=== PATIENT | male | born 1965 | race Caucasian/White ===

== ENCOUNTER 2019-10-03 11:59 | Observation (INO) | payer MEDICARE, MEDICAID, SELFPAY ==
[2019-10-03 12:01] VITALS: BP 124/86; PULSE 94; RESP 16; TEMP 36.6; O2SAT 100; BMI 27.2
--- NOTE | 2019-10-03 12:01 | ED_ITS ---
Entered by Patricia Calixto, acting as scribe for Panda Bundy DO HPI - Altered Mental Status General: Chief Complaint: Altered Mental Status Stated Complaint: AMS Time Seen by Provider: 10/03/19 12:00 Source: family and EMS Mode of arrival: EMS Limitations: altered mental status History of Present Illness: HPI narrative: 54 yo male presents with altered mental status and involuntary mouth movement. spouse denied medication change. per spouse this started 2 weeks ago. MD complaint: altered mental status, confusion, decreased responsiveness and weakness Onset (ago): week(s) (2 weeks) Timing confirmed by: spouse Consistency of symptoms: Getting Worse Context: other (antibotics ) Associated symptoms: Reports no associated symptoms Review of Systems General: Reports: ROS unobtainable due to medical condition and ROS unobtainable due to mental status PFS ED PFSH: Social History Smoking and tobacco status: never smoked Physical Exam Narrative: EXAM NARRATIVE: pt has facial involuntary movement Const: ORIENTATION/CONSCIOUSNESS: Yes oriented to person Neuro: COMMON NORMALS: moves all extremities SENSORIUM/ORIENTATION: Yes oriented to person Course Vital Signs: Vital signs: Vital Signs Temperature 97.8 F 10/03/19 12:01 Pulse Rate 70 10/03/19 14:02 Respiratory Rate 16 10/03/19 14:02 Blood Pressure 119/81 10/03/19 14:02 Pulse Oximetry 98 10/03/19 14:02 MDM - Altered Mental Status Lab Data: Labs: Lab Results 10/03/19 10/03/19 10/03/19 Range/Units 04:51 12:00 12:00 WBC 7.8 (4.0-10.0) 10^3/ uL RBC 4.81 (4.1-5.3) 10^6/u L Hgb 13.6 (11.7-16.6) g/dL Hct 39.7 L (42.0-52.0) % MCV 82.5 (80-94) fL MCH 28.3 (28.0-34.0) pg MCHC 34.3 (30.0-36.0) g/dL RDW 13.9 (12.1-15.1) % Plt Count 379 (130-400) 10^3/c mm MPV 12.6 H (7.4-10.4) fL Neut % (Auto) 65.7 % Lymph % (Auto) 26.1 % [place] % (Auto) 6.4 % Eos % (Auto) 1.0 % Baso % (Auto) 0.4 % Neut # (Auto) 5.1 (1.8-7.7) 10^3/u L Lymph # (Auto) 2.0 (0.8-4.8) 10^3/u L [place] # (Auto) 0.5 (0.2-0.9) 10^3/u L Eos # (Auto) 0.1 (0.0-0.8) 10^3/u L Baso # (Auto) 0.0 (0.0-0.1) 10^3/u L Nucleated RBC % (a uto) 0 % Nucleated RBCs # 0.0 /100WBC Specimen Type Sample Site ABG pH (7.35-7.45) ABG pO2 (80.0-100.0) mmH g ABG HCO3 (22-26) mmol/L ABG Base Excess (-2.0-2.0) mmol/ L Josh Test Hematocrit (42-52) % O2 Delivery Device FiO2 % An/Sqq 89(V)15 Sonar System Journeyman ID Sodium 130 L (136-145) mmol/L Potassium 4.8 (3.5-5.1) mmol/L Chloride 95 L (98-107) mmol/L Carbon Dioxide 16 L (22-29) mmol/L Anion Gap 23.8 H (5-19) BUN 14 (6-20) mg/dL Creatinine 1.2 (0.7-1.2) mg/dL GFR Calculation 63.6 L (90-130) mL/min Glucose 79 (65-115) mg/dL Lactate (0.5-2.2) mmol/L Calcium 10.0 (8.5-10.5) mg/dL Total Bilirubin 0.3 (0.15-1.2) mg/dL AST 18 (0-40) U/L ALT 16 (0-41) U/L Alkaline Phosphata se 89 (40-130) IU/L Ammonia (16-60) umol/L NT-Pro-B Natriuret Pep 274 H (0-125) pg/mL Total Protein 7.0 (6.6-8.7) g/dL Albumin 4.1 (3.5-5.2) g/dL Globulin 2.9 (1.3-4.6) g/dL Lipase 33 (13-60) U/L TSH 1.28 (0.27-4.20) uIU/ mL Salicylates < 0.3 L (3-10) mg/dL Acetaminophen < 5.0 L (10-30) ug/mL Ethyl Alcohol < 10 (0-10) mg/dL Influenza Type A A g Negative (Negative) POC Influenza B Ag Negative (Negative) 10/03/19 10/03/19 10/03/19 Range/Units 12:24 12:43 12:43 WBC (4.0-10.0) 10^3/ uL RBC (4.1-5.3) 10^6/u L Hgb (11.7-16.6) g/dL Hct (42.0-52.0) % MCV (80-94) fL MCH (28.0-34.0) pg MCHC (30.0-36.0) g/dL RDW (12.1-15.1) % Plt Count (130-400) 10^3/c mm MPV (7.4-10.4) fL Neut % (Auto) % Lymph % (Auto) % [place]. [place] % (Auto) % Eos % (Auto) % Baso % (Auto) % Neut # (Auto) (1.8-7.7) 10^3/u L Lymph # (Auto) (0.8-4.8) 10^3/u L [place] # (Auto) (0.2-0.9) 10^3/u L Eos # (Auto) (0.0-0.8) 10^3/u L Baso # (Auto) (0.0-0.1) 10^3/u L Nucleated RBC % (a uto) % Nucleated RBCs # /100WBC Specimen Type Arterial Sample Site Radial, right ABG pH 7.55 H (7.35-7.45) ABG pO2 112.0 H (80.0-100.0) mmH g ABG HCO3 13.2 L (22-26) mmol/L ABG Base Excess -5.9 L (-2.0-2.0) mmol/ L Josh Test Pos Hematocrit 43.7 (42-52) % O2 Delivery Device Room air FiO2 21.0 % An/Sqq 89(V)15 Sonar System Journeyman ID monro Sodium (136-145) mmol/L Potassium (3.5-5.1) mmol/L Chloride (98-107) mmol/L Carbon Dioxide (22-29) mmol/L Anion Gap (5-19) BUN (6-20) mg/dL Creatinine (0.7-1.2) mg/dL GFR Calculation (90-130) mL/min Glucose (65-115) mg/dL Lactate 1.7 (0.5-2.2) mmol/L Calcium (8.5-10.5) mg/dL Total Bilirubin (0.15-1.2) mg/dL AST (0-40) U/L ALT (0-41) U/L Alkaline Phosphata se (40-130) IU/L Ammonia 15 L (16-60) umol/L NT-Pro-B Natriuret Pep (0-125) pg/mL Total Protein (6.6-8.7) g/dL Albumin (3.5-5.2) g/dL Globulin (1.3-4.6) g/dL Lipase (13-60) U/L TSH (0.27-4.20) uIU/ mL Salicylates (3-10) mg/dL Acetaminophen (10-30) ug/mL Ethyl Alcohol (0-10) mg/dL Influenza Type A A g (Negative) POC Influenza B Ag (Negative) Discharge Plan Discharge Patient Disposition: Admitted As Inpatient Clinical Impression: Delirium due to general medical condition, Metabolic acidosis, Tardive dyskinesia Altered mental status Qualifiers: Altered mental status type: disorientation Qualified Code(s): R41.0 - Disorientation, unspecified Condition: Fair Referrals: Rashawn Chisholm [Family Provider] - Coding Level of Care Code ED Director Non Profit for g Fwd Exam Expanded Problem Focused The documentation recorded by the Durga delacruz Bridget Annette, accurately reflects the service I personally performed and the decisions made by , Panda Bundy DO Oct 03, 2019 11:59
--- NOTE | 2019-10-03 12:16 | XR_ITS ---
WS: [id number] Portable AP upright chest, 10/03/2019 Clinical Data: dyspnea Comparison: None. Findings: No nodules, masses or effusions are seen. The heart is normal. The pulmonary vascularity is not increased. No pneumonia or pneumothorax is seen. Monitor leads on the chest wall. There is a sma ll scar at the left cardiophrenic angle. XR/XR chest 1V portable [id number] Impression: Negative chest.
--- NOTE | 2019-10-03 12:16 | CT_ITS ---
WS: [id number] CT scan of the head, 10/03/2019 Clinical Data: ams Comparison: None. DLP: 724.[address] scans at [facility] use at least one of these dose optimization techniques: automat ed exposure control; mA and/or kV adjustment per patient size (includes targeted exams where dose is matched to clinical indication); or iterative reconstruction. Findings: The ventricular system is minimally dilated without shift. No recent infarct or hemorrhage is seen. T here are no abnormal intracerebral masses. The cerebellum and brainstem are not remarkable. Bony windows of the skull and skull base show no fractures or erosions. The mastoid air cells, analysis intern al auditory canals, sella turcica, intraorbital contents, and paranasal sinuses are unremarkable. CT/CT head wo con* [id number] Impression: Mild cerebral atrophy.
[2019-10-03 12:36] LABS: ABG PH Result 7.55 (7.35-7.45); Arterial Blood Gas Hematocrit 43.7 % (42-52); Base Excess ABG -5.9 mmol/L (-2.0-2.0); Blood Gas Allen Test Pos; Blood Gas Sample Site Radial, right; Blood Gas Sample Type Arterial; HCO3 ABG 13.2 mmol/L (22-26); Oxygen Device ROOM AIR
[2019-10-03 12:42] LABS: Basophils % 0.4 %; Eosinophils # 0.1 10^3/uL (0.0-0.8); Hematocrit 39.7 % (42.0-52.0); Hemoglobin 13.6 g/dL (11.7-16.6); Lymphocytes % 26.1 %; Mean Corpuscular HGB Conc 34.3 g/dL (30.0-36.0); Mean Corpuscular Hemoglobin 28.3 pg (28.0-34.0); Mean Corpuscular Volume 82.5 fL (80-94); Mean Platelet Volume 12.6 fL (7.4-10.4); Monocytes # 0.5 10^3/uL (0.2-0.9); Monocytes % 6.4 %; Neutrophils # 5.1 10^3/uL (1.8-7.7); Neutrophils % 65.7 %; Nucleated Red Blood Cells % 0 %; Platelet Count 379 10^3/cmm (130-400); Red Blood Count 4.81 10^6/uL (4.1-5.3); Red Cell Distribution Width 13.9 % (12.1-15.1); White Blood Count 7.8 10^3/uL (4.0-10.0)
--- NOTE | 2019-10-03 12:57 | PC.NURSE ---
Glucose Patient request bedside glucose be checked. Checked and is 65. Patient's primary caregiver, Rocco, notified and acknowledged. Unable to scan wristband.
[2019-10-03 13:02] LABS: Acetaminophen < 5.0 ug/mL (10-30); Alanine Aminotransferase 16 U/L (0-41); Albumin Level 4.1 g/dL (3.5-5.2); Alcohol Level < 10 mg/dL (0-10); Alkaline Phosphatase 89 IU/L (40-130); Anion Gap 23.8 (5-19); Aspartate Amino Transferase 18 U/L (0-40); Blood Urea Nitrogen 14 mg/dL (6-20); Carbon Dioxide 16 mmol/L (22-29); Chloride 95 mmol/L (98-107); Creatinine Clr Calc Pharmacy 79.7227; Globulin 2.9 g/dL (1.3-4.6); Glomerular Filtration Rate 63.6 mL/min (90-130); Glucose 79 mg/dL (65-115); Lipase 33 U/L (13-60); NT Pro B Type Natriuretic Pept 274 pg/mL (0-125); Potassium 4.8 mmol/L (3.5-5.1); Salicylate < 0.3 mg/dL (3-10); Sodium 130 mmol/L (136-145); Thyroid Stimulating Hormone 1.28 uIU/mL (0.27-4.20); Total Bilirubin 0.3 mg/dL (0.15-1.2)
[2019-10-03 13:09] LABS: Lactate (Lactic Acid level) 1.7 mmol/L (0.5-2.2)
[2019-10-03 13:10] LABS: Ammonia 15 umol/L (16-60)
[2019-10-03 13:53] LABS: Influenza A by IFA Negative (Negative); Influenza B by IFA Negative (Negative)
[2019-10-03 14:02] VITALS: BP 119/81; PULSE 70; RESP 16; O2SAT 98
--- NOTE | 2019-10-03 15:01 | PC.NURSE ---
Pt with abnormal facial movement and mouth movement. Almost looks like a dystonic reaction
--- NOTE | 2019-10-03 15:40 | ECG_ITS ---
Measurements Intervals [place] Rate: 78 P: 49 ID: [id number] QRS: 52 QRSD: 93 T: 41 QT: 369 QTc: 422 SINUS RHYTHM No previous ECG available for comparison Electronically Signed On 10-03-2019 20:00:00 MIXER HELPER by Abdi Diego M.D. [email or web address]
[2019-10-03 16:55] VITALS: BP 109/51; PULSE 70; RESP 21; O2SAT 99
--- NOTE | 2019-10-03 17:21 | P.HP_ITS ---
Providers/Chief Complaint Chief Complaint: AMS History of Present Illness Kolby Pickett is a 54 year old male with a past medical history of Parkinson's disease/tremor, hypertension, hyperlipidemia, type 2 diabetes mellitus, GERD, depression and anxiety, Who presents to the emergency room due to complaints of a tremor, head bobbing, restlessness, trouble focusing, he looks like he has trouble breathing . Most the history was provided by patient's significant other who was at bedside as patient has trouble focusing on questioning, has trouble with phonation, repeated lipsmacking, throat clearing. Patient's states that for the past 2 weeks patient has had repeat episodes of alterations of his mentation which include repeated head bobbing, restlessness, trouble focusing, he looks like he has trouble breathing, lip smacking, throat clearing. Patient's states that 2 weeks ago he was doing fine, no new medications, is not on any antipsychotic medications, no recent Reglan use, he presented to [facility] a few days ago with similar symptoms, and trouble urinating, he was discharged with Reglan and potassium replacement. Since then his symptoms have not improved, patient has been by himself at home, can function on his own, this morning his picked him up, he was able to walk to the car, get in the car, went to [facility] to get his 's oxygen order renewed, when nurses at [facility] noticed his symptoms they were worried, so they called EMS. Patient's only complaint right now is intermittent dysphagia, trouble expressing himself, has complained of intermittent fevers, has bilateral tremors. at other times patient does not make sense, does not respond to questions appropriately, or takes a long time to answer basic questions with repeat throat clearing and lip smacking. What I observed in the emergency room was tremors of the bilateral upper extremities, rigidity of his upper and lower extremities, mild clonus, pupillary dilation, flushing, repeated tongue smacking, throat clearing, akathsia, pupillary dilation poorly reactive to light, repeated head-bobbing. No slurring of his speech, no upper or lower extremity weakness, follows commands, no facial droop,, has a generalized tremor. Review of Systems Const: Reports: fever; Denies: chills, fatigue or malaise Eyes: Denies: change in vision or blurry vision ENMT: Denies: nasal congestion Card: Denies: chest pain Resp: Denies: shortness of breath, productive cough, non-productive cough or wheezing GI: Denies: abdominal pain, nausea, vomiting, vomiting blood, diarrhea, constipation, blood in stool or black tarry stool : Denies: flank pain, difficulty urinating, painful urination or urinary frequency Musc: Denies: neck pain or back pain Skin/Breast: Denies: rash Neuro: Denies: headache, dizziness or vertigo Psych: Denies: anxiety or depression Endo: Denies: excessive urination or excessive thirst Medications/Allergies Home Medications Medication Instructions Recorded Confirmed Last Taken Type albuterol sulfate [Ventolin HFA] 2 puff INHALATION QID PRN 10/03/19 10/03/19 10/03/19 History amlodipine 2.5 mg PO DAILY 10/03/19 10/03/19 10/03/19 History benztropine 1 mg PO BID 10/03/19 10/03/19 10/03/19 History fluoxetine 20 mg PO DAILY 10/03/19 10/03/19 10/03/19 History losartan 25 mg PO DAILY 10/03/19 10/03/19 10/02/19 History metformin 500 mg PO DAILY 10/03/19 10/03/19 10/03/19 History ondansetron 4 mg PO Q6H PRN 10/03/19 10/03/19 Unknown History pantoprazole 40 mg PO BID 10/03/19 10/03/19 Unknown History potassium chloride 20 meq PO BID 10/03/19 10/03/19 10/03/19 History simvastatin 20 mg PO DAILY 10/03/19 10/03/19 10/02/19 History topiramate 100 mg PO BID 10/03/19 10/03/19 10/03/19 History trazodone 100 mg PO BEDTIME 10/03/19 10/03/19 10/02/19 History Allergies Allergy/AdvReac Type Severity Reaction Status Date / Time No Known Allergies Allergy Unverified 10/03/19 14:22 PFSH Acute PFSH: Medical History (Updated 10/03/19 @ 17:33 by Shady Zarate MD) Anxiety and depression GERD (gastroesophageal reflux disease) Hyperlipidemia Parkinsons disease Family History (Updated 10/03/19 @ 17:33 by Shady Zarate MD) Other Diabetes Social History (Updated 10/03/19 @ 17:34 by Shady Zarate MD) Smoking and tobacco status: never smoked Alcohol intake: never Substance/Drug Use: never Vitals/I&O/Wt Last Vital Signs Temp 97.8 F 10/03/19 12:01 Pulse 70 10/03/19 16:55 Resp 21 H 10/03/19 16:55 BP 109/51 10/03/19 16:55 Pulse Ox 99 10/03/19 16:55 Weight last 48 hrs Weight 86.183 kg Physical Exam Const: COMMON NORMALS: no apparent distress and oriented x3 GENERAL APPEARANCE: cooperative and comfortable HENMT: COMMON NORMALS: normocephalic HEAD & SCALP: normocephalic Eye: COMMON NORMALS: PERRL GENERAL EYE: normal appearance of both eyes PUPIL: Yes dilated, Yes fixed and Yes not reactive (Poorly reactive to light) Neck/C-Spine: COMMON NORMALS: full ROM, no lymphadenopathy, no JVD and thyroid normal THYROID: thyroid normal Lymph: LYMPHATIC: no lymphadenopathy noted Resp: COMMON NORMALS: normal respiratory effort, no retractions, no use of accessory muscles and clear to auscultation bilaterally AUSCULTATION: clear to auscultation bilaterally Cardio: COMMON NORMALS: no JVD, regular rate, regular rhythm, S1 normal heart sound, S2 normal heart sound, no gallops, no clicks and no murmurs RATE: regular rate RHYTHM: regular rhythm HEART SOUNDS: S1 normal and S2 normal GI: COMMON NORMALS: normal to inspection, nondistended, normoactive bowel sounds, soft to palpation, non-tender and no hepatosplenomegaly PALPATION: Yes soft and Yes no hepatosplenomegaly Back/Pelvis: COMMON NORMALS: no CVA tenderness Extremity: COMMON NORMALS: normal to inspection, full ROM and no pedal edema Neuro: COMMON NORMALS: oriented x3, CN's II-XII intact bilaterally, moves all extremities and no focal motor deficits PUPIL EXAM: Dilated: bilateral and Fixed/non-reactive: bilateral OTHER: Neck rigidity, upper and lower extremity rigidity, mild clonus, bilateral upper extremity tremor, lipsmacking, throat c learing, head bobbing, akathsia Psych: COMMON NORMALS: mental status grossly normal, thought process normal and cooperative THOUGHT PROCESS: normal thought process Data : 10/03/19 12:00 10/03/19 12:00 Micro: Microbiology 10/03/19 12:47 Blood Culture - Preliminary Blood SPECIMEN COLLECTED 10/03/19 12:43 Blood Culture - Preliminary Blood SPECIMEN COLLECTED A&P Assessment and plan (1) Serotonin syndrome: -Lipsmacking, throat clearing, head-bobbing, bilateral tremors, rigidity, mild clonus, akathsia, history of recent urinary retention's, slow horizontal eye movements, dilated tremors, dry mucous membranes, flushed skin -Patient is not not on any antipsychotic medications, but at one point was on Latuda back in July 2018, and Abilify back in July 2018 -Patient is on Prozac 20 mg once daily, trazodone 100 mg at bedtime, Topamax 100 mg twice daily benztropine 1 mg p.o. twice daily -Differential includes: -Extrapyramidal symptoms and tardive dyskinesia, but again patient is not on any antipsychotics, no recent Reglan use as per my knowledge -Seizures? He is on Topamax patient is unclear why, gets that through Dr. Friedman's office, will recheck to our office tomorrow morning -Serotonin syndrome, a lot of patient's symptoms fit with serotonin syndrome, however is on low-dose of Prozac 20 mg once daily Plan: -We will try Keppra thousand milligrams IV once to see if he responds, if he does likely seizure, if not then other differentials are likely. Get EEG and prolactin levels. But is on Topamax without 100 twice daily -Possible serotonin syndrome, hold Prozac, hold trazodone, monitor vitals, telemetry monitoring, seizure precautions, aspiration precautions, monitor electrolytes, monitor for hyperthermia, monitor autonomic's, ativan as needed as needed, but is getting Valium 2 mg twice daily as needed -Extraparametal symptoms/tardive dyskinesia? Is already on benztropine 1 mg p.o. twice daily Status: Acute Code(s): G25.79 - Other drug induced movement disorders (2) Anxiety and depression: Hold Prozac Status: Acute Code(s): F41.9 - Anxiety disorder, unspecified; F32.9 - Major depressive disorder, single episode, unspecified (3) Hyperlipidemia: Continue home medications Status: Acute Code(s): E78.5 - Hyperlipidemia, unspecified (4) Hypertension: Continue home medications Status: Acute Code(s): I10 - Essential (primary) hypertension (5) Parkinsons disease: Status: Acute Code(s): G20 - Parkinson's disease (6) GERD (gastroesophageal reflux disease): Status: Acute Code(s): K21.9 - Gastro-esophageal reflux disease without esophagitis (7) Type 2 diabetes mellitus: Low-dose sliding scale Status: Acute Code(s): E11.9 - Type 2 diabetes mellitus without complications Attestations Medical Necessity Statement*: Patient requires hospitalization, outpatient with observation, for possible serotonin syndrome Coding Level of Care Code Acute Type Photography Supervisor for [facility] Diagnoses Serotonin syndrome G25.79 Anxiety and depression F41.9; F32.9 Hyperlipidemia E78.5 Hypertension I10 Parkinsons disease G20 GERD (gastroesophageal reflux disease) K21.9 Type 2 diabetes mellitus E11.9
[2019-10-03 18:07] LABS: Creatine Phosphokinase 83 U/L (39-308); Magnesium 2.2 mg/dL (1.7-2.3); Phosphorus 1.6 mg/dL (2.5-4.5)
[2019-10-03 18:32] LABS: Prolactin 6.24 ng/mL (4.0-15.2)
[2019-10-03 18:46] VITALS: BP 99/57; PULSE 69; RESP 20; O2SAT 97
[2019-10-03 19:06] VITALS: BP 104/61; PULSE 67; RESP 18; TEMP 36.8; O2SAT 99
[2019-10-03] MEDS: benztropine 1 mg Tablet PO (19:50)
[2019-10-03] MEDS: topiramate 100 mg Tablet PO (19:51)
[2019-10-03] MEDS: enoxaparin 40 mg/0.4 mL Syringe SUBCUT (19:51)
[2019-10-03 20:00] VITALS: BP 104/61; PULSE 67; RESP 18; TEMP 36.8; O2SAT 99
[2019-10-03 21:31] LABS: Glucose Point of Care 59 mg/dL (70-110)
[2019-10-03 22:09] LABS: Glucose Point of Care 122 mg/dL (70-110)
[2019-10-04] VITALS (8 sets, daily range): BP systolic 97–127; BP diastolic 58–78; PULSE 63–102; RESP 12–20; TEMP 36.4–36.7; O2SAT 97–99; BMI 27.6
[2019-10-04 02:38] LABS: Glucose Point of Care 158 mg/dL (70-110)
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
--- NOTE | 2019-10-04 04:45 | PC.NURSE ---
2116 10/03/19- patients blood sugar 59. gave patient orange juice and sandwich. rechecked blood sugar, improved to 122.
[2019-10-04 04:47] LABS: Basophils % 0.5 %; Eosinophils # 0.2 10^3/uL (0.0-0.8); Eosinophils % 2.4 %; Hemoglobin 12.6 g/dL (11.7-16.6); Lymphocytes # 2.2 10^3/uL (0.8-4.8); Lymphocytes % 33.1 %; Mean Corpuscular HGB Conc 33.2 g/dL (30.0-36.0); Mean Corpuscular Hemoglobin 29.2 pg (28.0-34.0); Mean Platelet Volume 11.8 fL (7.4-10.4); Monocytes # 0.7 10^3/uL (0.2-0.9); Monocytes % 9.9 %; Neutrophils # 3.5 10^3/uL (1.8-7.7); Neutrophils % 53.6 %; Nucleated Red Blood Cells % 0 %; Platelet Count 315 10^3/cmm (130-400); Red Blood Count 4.32 10^6/uL (4.1-5.3); White Blood Count 6.6 10^3/uL (4.0-10.0)
[2019-10-04 05:15] LABS: Alanine Aminotransferase 13 U/L (0-41); Albumin Level 3.2 g/dL (3.5-5.2); Alkaline Phosphatase 69 IU/L (40-130); Anion Gap 17.2 (5-19); Aspartate Amino Transferase 15 U/L (0-40); Blood Urea Nitrogen 12 mg/dL (6-20); Calcium 9.3 mg/dL (8.5-10.5); Carbon Dioxide 19 mmol/L (22-29); Chloride 103 mmol/L (98-107); Globulin 3.2 g/dL (1.3-4.6); Glomerular Filtration Rate 70.3 mL/min (90-130); Glucose 79 mg/dL (65-115); Magnesium 2.2 mg/dL (1.7-2.3); Phosphorus 3.4 mg/dL (2.5-4.5); Potassium 4.2 mmol/L (3.5-5.1); Sodium 135 mmol/L (136-145); Total Bilirubin 0.3 mg/dL (0.15-1.2); Total Protein 6.4 g/dL (6.6-8.7)
[2019-10-04 06:29] LABS: Glucose Point of Care 73 mg/dL (70-110)
[2019-10-04 06:48] LABS: Glucose Point of Care 73 mg/dL (70-110)
[2019-10-04 07:59] LABS: Glucose Point of Care 141 mg/dL (70-110)
[2019-10-04] MEDS: losartan 50 mg Tablet 25 MG PO (08:28)
[2019-10-04] MEDS: pantoprazole DR 40 mg Tablet PO (08:28)
[2019-10-04] MEDS: benztropine 1 mg Tablet PO (08:28)
[2019-10-04] MEDS: topiramate 100 mg Tablet PO (08:29)
[2019-10-04] MEDS: atorvastatin 40 mg Tablet 20 MG PO (08:29)
[2019-10-04] MEDS: amlodipine 5 mg Tablet 2.5 MG PO (08:29)
[2019-10-04] MEDS: risperiDONE 2 mg Tablet PO (10:46)
[2019-10-04 11:31] LABS: Glucose Point of Care 107 mg/dL (70-110)
--- NOTE | 2019-10-04 11:49 | PM.DCS ---
Discharge Providers Date of Admission: 10/03/19 16:53 Date of Discharge: October 04, 2019 Attending Provider at Admission: Shady Zarate MD Attending Provider at Discharge: Shady Zarate MD Diagnoses at Discharge Discharge Diagnosis (1) Serotonin syndrome: Status: Acute (2) Anxiety and depression: Status: Acute (3) Hyperlipidemia: Status: Acute (4) Hypertension: Status: Acute (5) Parkinsons disease: Status: Acute (6) GERD (gastroesophageal reflux disease): Status: Acute (7) Type 2 diabetes mellitus: Status: Acute Reason for Visit Reason for Visit: Reason For Visit: [facility] Hospital Course Hospital Course: Kolby Pickett is a 54 year old male with a past medical history of Parkinson's disease/tremor, hypertension, hyperlipidemia, type 2 diabetes mellitus, GERD, depression and anxiety, schizophrenia Who presents to the emergency room due to complaints of a tremor, head bobbing, restlessness, trouble focusing, he looks like he has trouble breathing . Most the history was provided by patient's significant other who was at bedside as patient has trouble focusing on questioning, has trouble with phonation, repeated lipsmacking, throat clearing. Patient's only complaint right now is intermittent dysphagia, trouble expressing himself, has complained of intermittent fevers, has bilateral tremors. at other times patient does not make sense, does not respond to questions appropriately, or takes a long time to answer basic questions with repeat throat clearing and lip smacking. What I observed in the emergency room was tremors of the bilateral upper extremities, rigidity of his upper and lower extremities, mild clonus, pupillary dilation, flushing, repeated tongue smacking, throat clearing, akathsia, pupillary dilation poorly reactive to light, repeated head-bobbing. No slurring of his speech, no upper or lower extremity weakness, follows commands, no facial droop,, has a generalized tremor. Patient was given a trial of Keppra thousand milligrams once to see if he if he actually was having seizures, patient symptoms did not seem to improve with Keppra. Patient did not have any significant laboratory abnormalities, no significant vital abnormalities, and was on quite a small dose of paroxetine so I think serotonin syndrome was very unlikely. In the morning I spoke to Dr. Friedman about the case, Dr. Friedman informing that patient has a known history of tardive dyskinesia and schizophrenia, he was on Latuda and Abilify at one point but they were discontinued by [facility] for reasons unknown to me and her, Dr. Friedman informs me that patient has been having baseline tremors, and his symptoms as above are associated with his tardive dyskinesias are baseline for him, but likely patient has been off his antipsychotic medications for his schizophrenia for approximately a year that is likely making his tardive dyskinesia more pronounced. Patient was given a trial of risperidone, 2 mg twice daily, he is discharged with a month supply, was advised to follow-up with [facility] in 1 month, with repeat CBC and CMP in 1 month. Physical Exam Const: COMMON NORMALS: no apparent distress and oriented x3 GENERAL APPEARANCE: cooperative and comfortable HENMT: COMMON NORMALS: normocephalic HEAD & SCALP: normocephalic Neck/C-Spine: COMMON NORMALS: no JVD Resp: COMMON NORMALS: normal respiratory effort, no retractions, no use of accessory muscles and clear to auscultation bilaterally AUSCULTATION: clear to auscultation bilaterally Cardio: COMMON NORMALS: no JVD, regular rate, regular rhythm, S1 normal heart sound, S2 normal heart sound, no gallops, no clicks and no murmurs RATE: regular rate RHYTHM: regular rhythm HEART SOUNDS: S1 normal and S2 normal GI: COMMON NORMALS: normal to inspection, nondistended, normoactive bowel sounds, soft to palpation, non-tender and no hepatosplenomegaly PALPATION: Yes soft and Yes no hepatosplenomegaly Neuro: COMMON NORMALS: oriented x3, CN's II-XII intact bilaterally, moves all extremities and no focal motor deficits OTHER: Neck rigidity, upper and lower extremity rigidity, mild clonus, bilateral upper extremity tremor, lipsmacking, throat clearing, head bobbing, akathsia Psych: COMMON NORMALS: mental status grossly normal, thought process normal and cooperative THOUGHT PROCESS: normal thought process Discharge Data Data Completed and Pending: Completed Studies During Hospitalization Category Date Time Status CT head wo con* [id number] 0450 Urgent Cat Scan 10/03/19 12:16 Completed XR chest 1V tracey ble [id number] Urgent Exams 10/03/19 12:16 Completed Pending at discharge Category Date Time Status EEG electroenceph alogram Routine Exams 10/03/19 19:06 Ordered Arterial Blood Ga s W/O Coox Routine Lab 10/03/19 12:24 Results Blood Culture Sta t Lab 10/03/19 12:47 Results Complete Blood Co unt w/Auto AM LABS Lab 10/05/19 04:00 Ordered Complete Blood Co unt w/Auto AM LABS Lab 10/06/19 04:00 Ordered Comprehensive Met abolic Panel AM LA BS Lab 10/05/19 04:00 Ordered Comprehensive Met abolic Panel AM LA BS Lab 10/06/19 04:00 Ordered Drug Screen, Urin e Stat Lab 10/03/19 13:21 Ordered Magnesium AM LABS Lab 10/05/19 04:00 Ordered Magnesium AM LABS Lab 10/06/19 04:00 Ordered Phosphorus AM LAB S Lab 10/05/19 04:00 Ordered Phosphorus AM LAB S Lab 10/06/19 04:00 Ordered Urinalysis Stat Lab 10/03/19 13:21 Ordered Labs from last 24 hours 10/04/19 10/04/19 10/04/19 11:10 07:38 06:45 WBC RBC Hgb Hct MCV MCH MCHC RDW Plt Count MPV Neut % (Auto) Lymph % (Auto) [place] % (Auto) Eos % (Auto) Baso % (Auto) Neut # (Auto) Lymph # (Auto) [place] # (Auto) Eos # (Auto) Baso # (Auto) Nucleated RBC % (a uto) Nucleated RBCs # Specimen Type Sample Site ABG pH ABG pO2 ABG HCO3 ABG Base Excess Josh Test Hematocrit O2 Delivery Device FiO2 Unit Secy ID Sodium Potassium Chloride Carbon Dioxide Anion Gap BUN Creatinine GFR Calculation Glucose POC Glucose 107 141 73 Lactate Calcium Phosphorus Magnesium Total Bilirubin AST ALT Alkaline Phosphata se Ammonia Creatine Kinase NT-Pro-B Natriuret Pep Total Protein Albumin Globulin Lipase TSH Prolactin Salicylates Acetaminophen Ethyl Alcohol Influenza Type A A g POC Influenza B Ag 10/04/19 10/04/19 10/04/19 06:13 04:27 04:27 WBC 6.6 RBC 4.32 Hgb 12.6 Hct 38.0 L MCV 88.0 D MCH 29.2 MCHC 33.2 RDW 14.0 Plt Count 315 MPV 11.8 H Neut % (Auto) 53.6 Lymph % (Auto) 33.1 [place] % (Auto) 9.9 Eos % (Auto) 2.4 Baso % (Auto) 0.5 Neut # (Auto) 3.5 Lymph # (Auto) 2.2 [place] # (Auto) 0.7 Eos # (Auto) 0.2 Baso # (Auto) 0.0 Nucleated RBC % (a uto) 0 Nucleated RBCs # 0.0 Specimen Type Sample Site ABG pH ABG pO2 ABG HCO3 ABG Base Excess Josh Test Hematocrit O2 Delivery Device FiO2 Unit Secy ID Sodium 135 L Potassium 4.2 Chloride 103 Carbon Dioxide 19 L Anion Gap 17.2 BUN 12 Creatinine 1.1 GFR Calculation 70.3 L Glucose 79 POC Glucose 73 Lactate Calcium 9.3 Phosphorus 3.4 D Magnesium 2.2 Total Bilirubin 0.3 AST 15 ALT 13 Alkaline Phosphata se 69 Ammonia Creatine Kinase NT-Pro-B Natriuret Pep Total Protein 6.4 L Albumin 3.2 L Globulin 3.2 Lipase TSH Prolactin Salicylates Acetaminophen Ethyl Alcohol Influenza Type A A g POC Influenza B Ag 10/04/19 10/03/19 10/03/19 02:26 22:05 21:16 WBC RBC Hgb Hct MCV MCH MCHC RDW Plt Count MPV Neut % (Auto) Lymph % (Auto) [place] % (Auto) Eos % (Auto) Baso % (Auto) Neut # (Auto) Lymph # (Auto) [place] # (Auto) Eos # (Auto) Baso # (Auto) Nucleated RBC % (a uto) Nucleated RBCs # Specimen Type Sample Site ABG pH ABG pO2 ABG HCO3 ABG Base Excess Josh Test Hematocrit O2 Delivery Device FiO2 Unit Secy ID Sodium Potassium Chloride Carbon Dioxide Anion Gap BUN Creatinine GFR Calculation Glucose POC Glucose 158 122 59 Lactate Calcium Phosphorus Magnesium Total Bilirubin AST ALT Alkaline Phosphata se Ammonia Creatine Kinase NT-Pro-B Natriuret Pep Total Protein Albumin Globulin Lipase TSH Prolactin Salicylates Acetaminophen Ethyl Alcohol Influenza Type A A g POC Influenza B Ag 10/03/19 10/03/19 10/03/19 17:34 12:43 12:43 WBC RBC Hgb Hct MCV MCH MCHC RDW Plt Count MPV Neut % (Auto) Lymph % (Auto) [place] % (Auto) Eos % (Auto) Baso % (Auto) Neut # (Auto) Lymph # (Auto) [place] # (Auto) Eos # (Auto) Baso # (Auto) Nucleated RBC % (a uto) Nucleated RBCs # Specimen Type Sample Site ABG pH ABG pO2 ABG HCO3 ABG Base Excess Josh Test Hematocrit O2 Delivery Device FiO2 Unit Secy ID Sodium Potassium Chloride Carbon Dioxide Anion Gap BUN Creatinine GFR Calculation Glucose POC Glucose Lactate 1.7 Calcium Phosphorus 1.6 L Magnesium 2.2 Total Bilirubin AST ALT Alkaline Phosphata se Ammonia 15 L Creatine Kinase 83 NT-Pro-B Natriuret Pep Total Protein Albumin Globulin Lipase TSH Prolactin 6.24 Salicylates Acetaminophen Ethyl Alcohol Influenza Type A A g POC Influenza B Ag 10/03/19 10/03/19 10/03/19 12:24 12:00 12:00 WBC 7.8 RBC 4.81 Hgb 13.6 Hct 39.7 L MCV 82.5 MCH 28.3 MCHC 34.3 RDW 13.9 Plt Count 379 MPV 12.6 H Neut % (Auto) 65.7 Lymph % (Auto) 26.1 [place] % (Auto) 6.4 Eos % (Auto) 1.0 Baso % (Auto) 0.4 Neut # (Auto) 5.1 Lymph # (Auto) 2.0 [place] # (Auto) 0.5 Eos # (Auto) 0.1 Baso # (Auto) 0.0 Nucleated RBC % (a uto) 0 Nucleated RBCs # 0.0 Specimen Type Arterial Sample Site Radial, right ABG pH 7.55 H ABG pO2 112.0 H ABG HCO3 13.2 L ABG Base Excess -5.9 L Josh Test Pos Hematocrit 43.7 O2 Delivery Device Room air FiO2 21.0 Unit Secy ID monro Sodium 130 L Potassium 4.8 Chloride 95 L Carbon Dioxide 16 L Anion Gap 23.8 H BUN 14 Creatinine 1.2 GFR Calculation 63.6 L Glucose 79 POC Glucose Lactate Calcium 10.0 Phosphorus Magnesium Total Bilirubin 0.3 AST 18 ALT 16 Alkaline Phosphata se 89 Ammonia Creatine Kinase NT-Pro-B Natriuret Pep 274 H Total Protein 7.0 Albumin 4.1 Globulin 2.9 Lipase 33 TSH 1.28 Prolactin Salicylates < 0.3 L Acetaminophen < 5.0 L Ethyl Alcohol < 10 Influenza Type A A g POC Influenza B Ag 10/03/19 04:51 WBC RBC Hgb Hct MCV MCH MCHC RDW Plt Count MPV Neut % (Auto) Lymph % (Auto) [place] % (Auto) Eos % (Auto) Baso % (Auto) Neut # (Auto) Lymph # (Auto) [place] # (Auto) Eos # (Auto) Baso # (Auto) Nucleated RBC % (a uto) Nucleated RBCs # Specimen Type Sample Site ABG pH ABG pO2 ABG HCO3 ABG Base Excess Josh Test Hematocrit O2 Delivery Device FiO2 Unit Secy ID Sodium Potassium Chloride Carbon Dioxide Anion Gap BUN Creatinine GFR Calculation Glucose POC Glucose Lactate Calcium Phosphorus Magnesium Total Bilirubin AST ALT Alkaline Phosphata se Ammonia Creatine Kinase NT-Pro-B Natriuret Pep Total Protein Albumin Globulin Lipase TSH Prolactin Salicylates Acetaminophen Ethyl Alcohol Influenza Type A A g Negative POC Influenza B Ag Negative Vitals: Last Vital Signs Temp 98.1 F 10/04/19 11:14 Pulse 69 10/04/19 11:14 Resp 16 10/04/19 11:14 BP 104/66 10/04/19 11:14 Pulse Ox 97 10/04/19 11:14 Discharge Plan Discharge Patient Disposition: Home, Self-Care Condition: Fair Prescriptions: New risperidone 2 mg Tablet 2 mg PO BID 30 Days Qty: 60 RF: 0 diazepam 2 mg Tablet 2 mg PO BID PRN (Reason: anxiety) 30 Days Qty: 30 RF: 0 Continued metformin 500 mg tablet 500 mg PO DAILY RF: 0 amlodipine 2.5 mg tablet 2.5 mg PO DAILY RF: 0 potassium chloride 20 mEq tablet,ER particles/crystals 20 meq PO BID RF: 0 trazodone 100 mg tablet 100 mg PO BEDTIME RF: 0 pantoprazole 40 mg tablet,delayed release (DR/EC) 40 mg PO BID RF: 0 simvastatin 20 mg tablet 20 mg PO DAILY RF: 0 losartan 25 mg tablet 25 mg PO DAILY RF: 0 benztropine 1 mg tablet 1 mg PO BID RF: 0 Ventolin HFA 90 mcg/actuation HFA aerosol inhaler 2 puff INHALATION QID PRN (Reason: Shortness Of Breath) RF: 0 ondansetron 4 mg tablet,disintegrating 4 mg PO Q6H PRN (Reason: Nausea) RF: 0 topiramate 100 mg tablet 100 mg PO BID RF: 0 fluoxetine 20 mg capsule 20 mg PO DAILY RF: 0 Discharge Orders: Discharge Order (Routine); Ordered 10/04/19 Ordered By: Shady Zarate Other Ambulatory Orders: Complete Blood Count w/Auto (Routine) Timeframe: 1 Month Location: Determined by Patient Ordered By: Shady Zarate Comprehensive Metabolic Panel (Routine) Timeframe: 1 Month Facility: [facility] - Location: Lab - Main Lab Ordered By: Shady Zarate Referrals: Rashawn Chisholm [Family Provider] - [facility] - ROSHAN ESQUIVEL [Staff Physician] - 1 week Discharge Diet: Advance as tolerated Discharge Activity: Resume usual activity Activity Restrictions/Additional Instructions: -Take risperidone as prescribed, check CBC CMP in 1 month, follow-up with [facility] Discharge Attestations Time Spent in Discharge Care*: less than 30 min Quality Metrics Clinical Quality Measures During this hospital stay, did patient experience: None Coding Level of Care Code Acute Yield Improvement Engineer for Chg Fwd Diagnoses Serotonin syndrome G25.79 Anxiety and depression F41.9; F32.9 Hyperlipidemia E78.5 Hypertension I10 Parkinsons disease G20 GERD (gastroesophageal reflux disease) K21.9 Type 2 diabetes mellitus E11.9
--- NOTE | 2019-10-04 12:16 | PC.NURSE ---
Physical therapy talked with patient in length and discovered that he Lives at home with his mother and she is the only one who cooks in the home. Since she was hospitalized in [place] recently he has lost 40 pounds in weight and states his friend is the only takes him to [employer] once a day. Spoke with career services assistant about getting a Home Health social service manager referral. She will work on it and get back to this nurse.
--- NOTE | 2019-10-04 12:40 | PC.CHAP ---
Pastoral Care Encounter/Spiritual Assessment Type of Contact [] Declined television news producer visit [] Patient/Family/Request visit [] Outpatient visit [] Follow-up visit [] Physician referral [] Code/Alert [x] Routine visit [] Staff referral [] Actively dying [] Patient sleeping [] Family support [] [] Out of room [] Palliative care [] [] Receiving care in room [] Pre-surgical visit [] Trauma [] Long length of stay [] ICU visit [] Other: Relational/Emotional Strength [x] Patient feels connected with others/family/visitors/staff [] Distress [] Loneliness/isolation [] Abandonment Spirituality of Patient [x] Person of Eden []x Attends Baptism of their [place] [] Believes in Prayer [] Reads Bible or Holiness materials [] There are Spiritual issues to be addressed Butadiene Compressor Operator Interventions [x] Prayer [] Active listening [x] Non-anxious presence [] Spiritual/emotional support [] Crisis/trauma care [] Spiritual counseling [] Bereavement support [] Provided bereavement packet [] Provided Bible/devotional materials [] Provided toy/stuffed animal, coloring book to patient or family member [] Provided Communion [] Anointing/[place] [] Salvation [x] Completed spiritual assessment [] Other: Impact on Illness or Injury [] Angry [x] Fearful [x] Anxious [] Often cries [] Exhaustion [] Unable to work [] Unable to attend tenriism [] Unable to walk/stand [] Unable to read [] Unable to drive [] Unable to eat/drink [] Unable to sleep [] Unable to be with family [] Patient intubated [] Other: Summary patient need lots of care Time spent with patient 10 min
[2019-10-04] MEDS: polyethylene glycol 3350 Pkt 17 gm PO (12:55)
[2019-10-05 14:52] LABS: ABG PCO2 15.1 mmHg (35-45)
== END 2019-10-04 16:12 | disposition home or self-care (01) ==
LOC: ER 15:56 → MEDSURG 18:15
PROVIDERS: Admitting Provider Family Medicine; Emergency Provider Family Medicine; Family Provider Family Medicine; Visit Provider Family Medicine
DX: G25.79 Other drug induced movement disorders (principal); E78.5 Hyperlipidemia, unspecified; F41.9 Anxiety disorder, unspecified; F32.9 Major depressive disorder, single episode, unspecified; I10 Essential (primary) hypertension; G20 Parkinson's disease; K21.9 Gastro-esophageal reflux disease without esophagitis; E11.9 Type 2 diabetes mellitus without complications; Z83.3 Family history of diabetes mellitus
CPT/HCPCS: 12345; 36415; 36416; 36600; 70450; 71045; 80053; 80307; 82140; 82550; 82803; 82962; 83605; 83690; 83735; 83880; 84100; 84146; 84443; 85025; 87040; 87804; 93005; 96365; 96372; 97116; 97161; 99282; 99285; A9270; G0378; J1650; J1815; J1953

== ENCOUNTER 2019-10-24 16:18 | Inpatient (IN) | payer MEDICARE, MEDICAID, SELFPAY ==
[2019-10-24] VITALS (8 sets, daily range): BP systolic 98–109; BP diastolic 54–63; PULSE 84–99; RESP 15–22; TEMP 37.1; O2SAT 95–99; BMI 30.7
--- NOTE | 2019-10-24 18:33 | XR_ITS ---
WS: [id number] XR chest 1V portable [id number] REASON FOR EXAM: cough/congestion FINDINGS: The heart and mediastinal interfaces normal. The lung kim are well aerated. No pneumonia, pleural effusion, pulmonary edema, or mass effect. The hilum and apices normal. No interval change since previous exam October 03, 2019. XR/XR chest 1V portable [id number] IMPRESSION: Negative chest for active pathology.
--- NOTE | 2019-10-24 18:33 | ECG_ITS ---
Measurements Intervals [place] Rate: 91 P: 69 MS: 143 QRS: 60 QRSD: 101 T: 47 QT: 359 QTc: 443 SINUS RHYTHM NONSPECIFIC T-WAVE ABNORMALITY Compared to ECG 10/03/2019 12:16:01 T-wave abnormality now present Electronically Signed On 10-24-2019 20:06:20 CDT by Sulema Montelongo M.D. [email or web address]
--- NOTE | 2019-10-24 18:36 | ED_ITS ---
HPI - General Adult General: Chief complaint: General Medical Stated complaint: DECUB BUTTOCKS Time Seen by Provider: 10/24/19 17:51 Source: patient Mode of arrival: EMS Limitations: language barrier History of Present Illness: HPI narrative: Patient is a 54-year-old male who presents to ED today with complaints of infected and foul-smelling decubitus ulcers. Patient arrives to the ER alone. He has severe Parkinson's and tardive dyskinesia symptoms that make a history almost impossible to obtain. Patient cannot answer the majority of my questions being asked and when he does answer takes very long to do so. Foul smell feels the room immediately upon arrival. Again no history could be obtained at this time. Review of Systems General: Reports: ROS unobtainable due to medical condition PFSH ED PFSH: Family History (Updated 10/03/19 @ 17:33 by Shady Zarate MD) Other Diabetes Social History Smoking and tobacco status: former smoker Alcohol intake: never Physical Exam Const: GENERAL APPEARANCE: disheveled, frail appearing and other (diaphoretic ) ORIENTATION/CONSCIOUSNESS: Yes awake HENMT: COMMON NORMALS: normocephalic and head/scalp atraumatic HEAD & SCALP: normocephalic and atraumatic Resp: COMMON NORMALS: normal respiratory effort and clear to auscultation bilaterally AUSCULTATION: clear to auscultation bilaterally Cardio: COMMON NORMALS: regular rate and regular rhythm RATE: regular rate RHYTHM: regular rhythm GI: COMMON NORMALS: normal to inspection, nondistended, normoactive bowel sounds, soft to palpation, non-tender, no hepatosplenomegaly and no masses PALPATION: Yes soft and Yes no hepatosplenomegaly RECTAL EXAM: Yes other (pt has stage IV decubitus ulcer to L buttock ) : OTHER: pt has erythema/warmth to L perineal region with large area of induration to L medial upper thigh Course Vital Signs: Vital signs: Vital Signs Temperature 98.8 F 10/24/19 16:18 Pulse Rate 87 10/24/19 21:21 Respiratory Rate 15 10/24/19 21:21 Blood Pressure 103/58 10/24/19 21:21 Pulse Oximetry 98 10/24/19 21:21 MDM - General Adult MDM Narrative: Medical decision making narrative: pt appears septic from infection; no drainable abscess at this time per CT; he has been given fluids and IV abx here; he will need to come into hospital; spoke to Dr. Nixon who will speak to hospitalist for admission Lab Data: Labs: Lab Results 10/24/19 10/24/19 10/24/19 Range/Units 18:45 18:45 18:45 WBC 15.7 H (4.0-10.0) 10^3/ uL RBC 3.84 L (4.1-5.3) 10^6/u L Hgb 11.1 L (11.7-16.6) g/dL Hct 33.2 L (42.0-52.0) % MCV 86.5 (80-94) fL MCH 28.9 (28.0-34.0) pg MCHC 33.4 (30.0-36.0) g/dL RDW 14.3 (12.1-15.1) % Plt Count 419 H (130-400) 10^3/c mm MPV 11.3 H (7.4-10.4) fL Neut % (Auto) 76.6 % Lymph % (Auto) 12.2 % Rooks % (Auto) 8.6 % Eos % (Auto) 0.8 % Baso % (Auto) 0.3 % Neut # (Auto) 12.1 H (1.8-7.7) 10^3/u L Lymph # (Auto) 1.9 (0.8-4.8) 10^3/u L Rooks # (Auto) 1.4 H (0.2-0.9) 10^3/u L Eos # (Auto) 0.1 (0.0-0.8) 10^3/u L Baso # (Auto) 0.0 (0.0-0.1) 10^3/u L Nucleated RBC % (a uto) 0 % Nucleated RBCs # 0.0 /100WBC Sodium 128 L (136-145) mmol/L Potassium 3.7 (3.5-5.1) mmol/L Chloride 96 L (98-107) mmol/L Carbon Dioxide 19 L (22-29) mmol/L Anion Gap 16.7 (5-19) BUN 32 H (6-20) mg/dL Creatinine 1.6 H (0.7-1.2) mg/dL GFR Calculation 45.6 L (90-130) mL/min Glucose 81 (65-115) mg/dL Calculated Osmolal ity 262 L (285-295) mOsm/k g Lactate 1.6 (0.5-2.2) mmol/L Calcium 8.8 (8.5-10.5) mg/dL Total Bilirubin 0.7 (0.15-1.2) mg/dL AST 316 H (0-40) U/L ALT 214 H (0-41) U/L Alkaline Phosphata se 221 H (40-130) IU/L C-Reactive Protein 146.5 H (0.0-4.9) mg/L Total Protein 6.4 L (6.6-8.7) g/dL Albumin 2.7 L (3.5-5.2) g/dL Globulin 3.7 (1.3-4.6) g/dL Lipase (13-60) U/L Urine Color (Yellow) Urine Appearance (CLEAR) Urine pH (5-7) Ur Specific Gravit y (1.005-1.030) Urine Protein (Negative) Urine Glucose (UA) (Normal) Urine Ketones (Negative) Urine Blood (Negative) Urine Nitrate (Negative) Urine Bilirubin (NEGATIVE) Urine Urobilinogen (Negative) mg/dL Ur Leukocyte Shwetha ase (Negative) Urine Opiates Scre en (Negative) ng/mL Ur Barbiturates Sc reen (Negative) ng/mL Ur Phencyclidine S crn (Negative) ng/mL Ur Amphetamines Sc reen (Negative) ng/mL U Benzodiazepines Scrn (Negative) ng/mL Urine Cocaine Scre en (Negative) ng/mL U Marijuana (THC) Screen (Negative) ng/mL Hepatitis A IgM Ab (Nonreactive) Hep Bs Antigen (Nonreactive) Hep B Core IgM Ab (Nonreactive) Hepatitis C Antibo dy (Nonreactive) 10/24/19 10/24/19 10/24/19 Range/Units 18:45 18:45 19:04 WBC (4.0-10.0) 10^3/ uL RBC (4.1-5.3) 10^6/u L Hgb (11.7-16.6) g/dL Hct (42.0-52.0) % MCV (80-94) fL MCH (28.0-34.0) pg MCHC (30.0-36.0) g/dL RDW (12.1-15.1) % Plt Count (130-400) 10^3/c mm MPV (7.4-10.4) fL Neut % (Auto) % Lymph % (Auto) % Rooks % (Auto) % Eos % (Auto) % Baso % (Auto) % Neut # (Auto) (1.8-7.7) 10^3/u L Lymph # (Auto) (0.8-4.8) 10^3/u L Rooks # (Auto) (0.2-0.9) 10^3/u L Eos # (Auto) (0.0-0.8) 10^3/u L Baso # (Auto) (0.0-0.1) 10^3/u L Nucleated RBC % (a uto) % Nucleated RBCs # /100WBC Sodium (136-145) mmol/L Potassium (3.5-5.1) mmol/L Chloride (98-107) mmol/L Carbon Dioxide (22-29) mmol/L Anion Gap (5-19) BUN (6-20) mg/dL Creatinine (0.7-1.2) mg/dL GFR Calculation (90-130) mL/min Glucose (65-115) mg/dL Calculated Osmolal ity (285-295) mOsm/k g Lactate (0.5-2.2) mmol/L Calcium (8.5-10.5) mg/dL Total Bilirubin (0.15-1.2) mg/dL AST (0-40) U/L ALT (0-41) U/L Alkaline Phosphata se (40-130) IU/L C-Reactive Protein (0.0-4.9) mg/L Total Protein (6.6-8.7) g/dL Albumin (3.5-5.2) g/dL Globulin (1.3-4.6) g/dL Lipase 25 (13-60) U/L Urine Color Yellow (Yellow) Urine Appearance Clear (CLEAR) Urine pH 5 (5-7) Ur Specific Gravit y 1.005 (1.005-1.030) Urine Protein Neg (Negative) Urine Glucose (UA) Norm (Normal) Urine Ketones Negative (Negative) Urine Blood Neg (Negative) Urine Nitrate Negative (Negative) Urine Bilirubin Neg (NEGATIVE) Urine Urobilinogen 1 H (Negative) mg/dL Ur Leukocyte Shwetha ase Negative (Negative) Urine Opiates Scre en (Negative) ng/mL Ur Barbiturates Sc reen (Negative) ng/mL Ur Phencyclidine S crn (Negative) ng/mL Ur Amphetamines Sc reen (Negative) ng/mL U Benzodiazepines Scrn (Negative) ng/mL Urine Cocaine Scre en (Negative) ng/mL U Marijuana (THC) Screen (Negative) ng/mL Hepatitis A IgM Ab Non-reactive (Nonreactive) Hep Bs Antigen Non-reactive (Nonreactive) Hep B Core IgM Ab Non-reactive (Nonreactive) Hepatitis C Antibo dy Non-reactive (Nonreactive) 10/24/19 Range/Units 19:04 WBC (4.0-10.0) 10^3/ uL RBC (4.1-5.3) 10^6/u L Hgb (11.7-16.6) g/dL Hct (42.0-52.0) % MCV (80-94) fL MCH (28.0-34.0) pg MCHC (30.0-36.0) g/dL RDW (12.1-15.1) % Plt Count (130-400) 10^3/c mm MPV (7.4-10.4) fL Neut % (Auto) % Lymph % (Auto) % Rooks % (Auto) % Eos % (Auto) % Baso % (Auto) % Neut # (Auto) (1.8-7.7) 10^3/u L Lymph # (Auto) (0.8-4.8) 10^3/u L Rooks # (Auto) (0.2-0.9) 10^3/u L Eos # (Auto) (0.0-0.8) 10^3/u L Baso # (Auto) (0.0-0.1) 10^3/u L Nucleated RBC % (a uto) % Nucleated RBCs # /100WBC Sodium (136-145) mmol/L Potassium (3.5-5.1) mmol/L Chloride (98-107) mmol/L Carbon Dioxide (22-29) mmol/L Anion Gap (5-19) BUN (6-20) mg/dL Creatinine (0.7-1.2) mg/dL GFR Calculation (90-130) mL/min Glucose (65-115) mg/dL Calculated Osmolal ity (285-295) mOsm/k g Lactate (0.5-2.2) mmol/L Calcium (8.5-10.5) mg/dL Total Bilirubin (0.15-1.2) mg/dL AST (0-40) U/L ALT (0-41) U/L Alkaline Phosphata se (40-130) IU/L C-Reactive Protein (0.0-4.9) mg/L Total Protein (6.6-8.7) g/dL Albumin (3.5-5.2) g/dL Globulin (1.3-4.6) g/dL Lipase (13-60) U/L Urine Color (Yellow) Urine Appearance (CLEAR) Urine pH (5-7) Ur Specific Gravit y (1.005-1.030) Urine Protein (Negative) Urine Glucose (UA) (Normal) Urine Ketones (Negative) Urine Blood (Negative) Urine Nitrate (Negative) Urine Bilirubin (NEGATIVE) Urine Urobilinogen (Negative) mg/dL Ur Leukocyte Shwetha ase (Negative) Urine Opiates Scre en Negative (Negative) ng/mL Ur Barbiturates Sc reen Positive H (Negative) ng/mL Ur Phencyclidine S crn Negative (Negative) ng/mL Ur Amphetamines Sc reen Negative (Negative) ng/mL U Benzodiazepines Scrn Positive H (Negative) ng/mL Urine Cocaine Scre en Negative (Negative) ng/mL U Marijuana (THC) Screen Negative (Negative) ng/mL Hepatitis A IgM Ab (Nonreactive) Hep Bs Antigen (Nonreactive) Hep B Core IgM Ab (Nonreactive) Hepatitis C Antibo dy (Nonreactive) Imaging Data^: CT pelvis: Radiologist's impression: [address] [address] [address] Scan Report Signed Patient: Kolby Pickett [place] Unit #: [id number] : 1965 Age/Sex: 54 / M ADM Date: 10/24/19 Loc: ER Room/Bed: Attending Dr: Ordering Provider/Ordering MD: Kacie Cochran Date of Service: 10/24/19 Procedure(s): CT pelvis w con* [id number] Accession Number(s): [id number] Report Number: [id number] PROCEDURE INFORMATION: Exam: CT Pelvis With Contrast Exam date and time: 10/24/2019 7:07 PM Age: 54 years old Clinical indication: Other: Decub ulcers; Additional info: Decub ulcers; Large abscess to L upper thigh TECHNIQUE: Imaging protocol: Computed tomography images of the pelvis with intravenous contrast. Total DLP: 631.25 mGy-cm Radiation optimization: All CT scans at this facility use at least one of these dose optimization techniques: automated exposure control; mA and/or kV adjustment per patient size (includes targeted exams where dose is matched to clinical indication); or iterative reconstruction. Contrast material: OMNI 300; Contrast volume: 95 ml; Contrast route: IV; COMPARISON: No relevant prior studies available. FINDINGS: There is a large ulceration involving the left gluteal region extending along the upper medial thigh. There is air within the soft tissues. There is air involving the posterior musculature on the left, the inferior aspect of the gluteal muscles. There is skin thickening. No significant fluid is seen within the soft tissues. No bony destruction is identified. The vastus muscles appear normal. There is bladder distention. The prostate gland is normal. Feces is seen within the rectosigmoid colon. A normal appendix is noted. No free fluid is seen within the pelvis. There is bilateral inguinal adenopathy and prominent pelvic lymph nodes. The bony structures appear intact. CT/CT pelvis w con* [id number] IMPRESSION: 1. Large soft tissue wound/ulceration involving the left gluteal region with involvement of the gluteal muscles. There is extension along the medial upper thigh and there is overlying skin thickening. No drainable fluid collection is seen. 2. Bilateral inguinal adenopathy as well as some prominent external iliac chain lymph nodes. Radiation Dose CTDIVOL = (mGy): DLP = 631.25 (mGy-cm) Dictated By: Justus Donovan MD Signed By: Justus Donovan MD Signed Date/Time: 10/24/191952 DD/ 50 US gallbladder: Radiologist's impression: [facility] [address] [address] Ultrasound Report Signed Patient: Kolby Pickett Unit #: [id number] : 1965 Age/Sex: 54 / M ADM Date: 10/24/19 Loc: ER Room/Bed: Attending Dr: Ordering Provider/Ordering MD: Kacie Cochran Date of Service: 10/24/19 Procedure(s): US gall bladder [id number] Accession Number(s): [id number] Report Number: [id number] PROCEDURE INFORMATION: Exam: US Abdomen Limited Exam date and time: 10/24/2019 8:01 PM Age: 54 years old Clinical indication: Screening exam; Other: Abn labs; Additional info: Elevated lfts TECHNIQUE: Imaging protocol: Real-time ultrasound of the abdomen with image documentation. Examination is focused on the region of clinical interest. COMPARISON: No relevant prior studies available. FINDINGS: Real-time sonography of the right upper quadrant was performed. The pancreas is obscured by bowel gas. The liver is homogeneous in echotexture. It is normal in size. There is no liver mass. There is no intrahepatic biliary dilatation. There is hepatopedal flow within the portal vein. The common bile duct measured 6 mm. No gallstones are seen within the gallbladder. There is no thickening of the gallbladder wall. There is no pericholecystic fluid. The patient was not tender over the gallbladder. The right kidney appeared normal. No free fluid is identified. US/US gall bladder [id number] IMPRESSION: 1. Limited study due to bowel gas. 2. No gallstones or biliary dilatation. Dictated By: Justus Donovan MD Signed By: Justus Donovan MD Signed Date/Time: 10/24/192033 DD/ 30 Discharge Plan Discharge Patient Disposition: Admitted As Inpatient Clinical Impression: Decubitus ulcer, stage 4 with infection Sepsis Qualifiers: Sepsis type: sepsis due to unspecified organism Sepsis acute organ dysfunction status: with acute organ dysfunction Severe sepsis acute organ dysfunction type: unspecified Severe sepsis shock status: without septic shock Qualified Code(s): A41.9 - Sepsis, unspecified organism Condition: Stable Referrals: Rashawn Chisholm [Family Provider] - Coding Level of Care Code ED Arterial Embalmer for Chg Fwd Exam Detailed
[2019-10-24] MEDS: piperacillin-tazobactam 3.375 GM in sodium chloride 0.9% (plus) 50 ML IV (18:43)
[2019-10-24] MEDS: sodium chloride 0.9% 1,000 ML 999 ML IV (18:43)
[2019-10-24 18:55] LABS: Basophils % 0.3 %; Eosinophils # 0.1 10^3/uL (0.0-0.8); Eosinophils % 0.8 %; Hematocrit 33.2 % (42.0-52.0); Hemoglobin 11.1 g/dL (11.7-16.6); Lymphocytes # 1.9 10^3/uL (0.8-4.8); Lymphocytes % 12.2 %; Mean Corpuscular HGB Conc 33.4 g/dL (30.0-36.0); Mean Corpuscular Hemoglobin 28.9 pg (28.0-34.0); Mean Corpuscular Volume 86.5 fL (80-94); Mean Platelet Volume 11.3 fL (7.4-10.4); Monocytes # 1.4 10^3/uL (0.2-0.9); Monocytes % 8.6 %; Neutrophils # 12.1 10^3/uL (1.8-7.7); Neutrophils % 76.6 %; Nucleated Red Blood Cells % 0 %; Platelet Count 419 10^3/cmm (130-400); Red Blood Count 3.84 10^6/uL (4.1-5.3); Red Cell Distribution Width 14.3 % (12.1-15.1); White Blood Count 15.7 10^3/uL (4.0-10.0)
[2019-10-24 19:12] LABS: Lactate (Lactic Acid level) 1.6 mmol/L (0.5-2.2)
[2019-10-24 19:13] LABS: Alanine Aminotransferase 214 U/L (0-41); Albumin Level 2.7 g/dL (3.5-5.2); Alkaline Phosphatase 221 IU/L (40-130); Anion Gap 16.7 (5-19); Aspartate Amino Transferase 316 U/L (0-40); Blood Urea Nitrogen 32 mg/dL (6-20); C Reactive Protein 146.5 mg/L (0.0-4.9); Calcium 8.8 mg/dL (8.5-10.5); Carbon Dioxide 19 mmol/L (22-29); Chloride 96 mmol/L (98-107); Globulin 3.7 g/dL (1.3-4.6); Glomerular Filtration Rate 45.6 mL/min (90-130); Glucose 81 mg/dL (65-115); Osmolality Calculated 262 mOsm/kg (285-295); Potassium 3.7 mmol/L (3.5-5.1); Sodium 128 mmol/L (136-145); Total Bilirubin 0.7 mg/dL (0.15-1.2); Total Protein 6.4 g/dL (6.6-8.7)
[2019-10-24 19:16] LABS: Add Urine Microscopic? NO
[2019-10-24 19:18] LABS: Bilirubin Urine Neg (NEGATIVE); Blood Urine Neg (Negative); Glucose Urine UA Norm (Normal); Ketones Urine Negative (Negative); Nitrate Urine Negative (Negative); Protein Urine Neg (Negative); Specific Gravity, Urine 1.005 (1.005-1.030); Urine Appearance Clear (CLEAR); Urine Color Yellow (Yellow); pH Urine 5 (5-7)
[2019-10-24 19:19] LABS: Leukocyte Esterase Urine Negative (Negative); Urobilinogen Urine 1 mg/dL (Negative)
[2019-10-24] MEDS: iohexol 300 mg/mL 100 mL Btl IV (19:26)
[2019-10-24 19:27] LABS: Amphetamines Screen Urine Negative (Negative); Barbiturates Screen Urine Positive (Negative); Benzodiazepines Screen Urine Positive (Negative); Cocaine Screen Urine Negative (Negative); Opiate Screen Urine Negative (Negative); PCP Screen Urine Negative (Negative); THC Screen Urine Negative (Negative)
--- NOTE | 2019-10-24 19:57 | USR_ITS ---
PROCEDURE INFORMATION: Exam: US Abdomen Limited Exam date and time: 10/24/2019 8:01 PM Age: 54 years old Clinical indication: Screening exam; Other: Abn labs; Additional info: Elevated lfts TECHNIQUE: Imaging protocol: Real-time ultrasound of the abdomen with image documentation. Examination is focused on the region of clinical interest. COMPARISON: No relevant prior studies available. FINDINGS: Real-time sonography of the right upper quadrant was performed. The pancreas is obscured by bowel gas. The liver is homogeneous in echotexture. It is normal in size. There is no liver mass. There is no intrahepatic biliary dilatation. There is hepatopedal flow within the portal vein. The common bile duct measured 6 mm. No gallstones are seen within the gallbladder. There is no thickening of the gallbladder wall. There is no pericholecystic fluid. The patient was not tender over the gallbladder. The right kidney appeared normal. No free fluid is identified. US/US gall bladder [id number] IMPRESSION: 1. Limited study due to bowel gas. 2. No gallstones or biliary dilatation.
[2019-10-24] MEDS: vancomycin 1,000 MG in sodium chloride 0.9% 250 ML 250 MG IV (20:05)
--- NOTE | 2019-10-24 20:12 | PC.NURSE ---
Called all numbers on patients contact list no answer from any of the numbers.
[2019-10-24 20:40] LABS: Hepatitis A Antibody IgM. Non-Reactive (Nonreactive); Hepatitis B Core IgM Non-Reactive (Nonreactive); Hepatitis B Surface Antigen. Non-Reactive (Nonreactive); Hepatitis C Virus Antibody Non-Reactive (Nonreactive)
[2019-10-24 20:46] LABS: Lipase 25 U/L (13-60)
--- NOTE | 2019-10-24 21:08 | CTR_ITS ---
PROCEDURE INFORMATION: Exam: CT Abdomen Without Contrast Exam date and time: 10/24/2019 9:24 PM Age: 54 years old Clinical indication: Abnormal findings; Abnormal lab test; Elevated liver enzymes; Prior surgery; Surgery type: Spleen TECHNIQUE: Imaging protocol: Computed tomography images of the abdomen without contrast. Total DLP: 996.58 mGy-cm Radiation optimization: All CT scans at this facility use at least one of these dose optimization techniques: automated exposure control; mA and/or kV adjustment per patient size (includes targeted exams where dose is matched to clinical indication); or iterative reconstruction. COMPARISON: US gall bladder [id number] 10/24/2019 8:12 PM FINDINGS: The lung bases are clear. There are degenerative changes of the spine. The again noted is the abscess/wound involving the left gluteal region. Please see CT pelvis report. There is no liver mass. There is no intrahepatic biliary dilatation. No gallstones are seen within the gallbladder. The pancreas is unremarkable. Splenic granulomas are present. There is no adrenal mass. The kidneys excrete contrast from previous exam. There is no mass or hydronephrosis. The aorta is normal in caliber. The IVC is normal in caliber. There is no retroperitoneal adenopathy. There is no mesenteric adenopathy. The stomach is unremarkable. The small bowel loops in the upper abdomen are nondistended with no bowel wall thickening. Feces is seen throughout the colon. There is no thickening of the wall of the ascending, transverse or descending colons. Within the pelvis: A normal appendix is seen within the right lower quadrant. The bladder is distended with contrast. The prostate gland and seminal vesicles are normal. There is no free fluid within the pelvis bilateral inguinal adenopathy is identified. Prominent pelvic lymph nodes are present. Feces is seen within the rectosigmoid. CT/CT abdomen wo con [id number] IMPRESSION: 1. The liver appears normal. No gallstones or biliary dilatation. 2. Moderate fecal burden. No evidence for bowel obstruction or bowel wall thickening. Radiation Dose CTDIVOL = (mGy): DLP = 996.58 (mGy-cm)
[2019-10-24] MEDS: sodium chloride 0.9% 1,000 ML 100 ML IV (21:21)
--- NOTE | 2019-10-24 22:30 | PC.NURSE ---
Pt arrived to room via gurney from ER. Introduction of staff and aidet. Assisted to bed per 3 staff. Physical assessment done at this time. A large, deep sloth covered decub noted to left buttock/thigh fold. Area of redness noted from same area to inner thigh just above the left knee. Said area marked with marker to assess improvement. Wound cleaned with normal saline and packed with w/d 2inch luis.
--- NOTE | 2019-10-24 23:04 | P.HP_ITS ---
Providers/Chief Complaint Admitting Physician: Nancy Valle MD Chief Complaint: DECUB BUTTOCKS History of Present Illness History obtained by discussion with ERP as limited by patient's dysphagia. No family members reachable at this present time Kolby Pickett is a 54 year old male with a past medical history of Parkinson's disease/tremor, hypertension, hyperlipidemia, type 2 diabetes mellitus, GERD, depression and anxiety, schizophrenia, tardive dyskinesia, recently discharged on Risperidone in sep 2019. Returned to Ed today with c/o foul smelling decubitus ulcers of unknown chronicity and thigh swelling concerning for cellulitis. Pelvis CT showed Large soft tissue wound/ulceration involving the left gluteal region with involvement of the gluteal muscles. There is extension along the medial upper thigh and there is overlying skin thickening. No drainable fluid collection is seen. Labs revealed leukocytosis of 15 and new transaminitis. USG RUQ was limited but did not show gallstones of biliary dilatation. CT abdomen was additionally unremarkable except for fecal retention. Thus far he has received zosyn and vancomycin iv. Review of Systems General: Reports: ROS unobtainable due to medical condition and ROS unobtainable due to mental status Const: Denies: fever, chills or body aches Eyes: Denies: change in vision, blurry vision or photophobia ENMT: Reports: hoarseness; Denies: throat pain, enlarged tonsils, painful swallowing or nasal congestion Card: Denies: chest pain, palpitations, irregular heart rhythm, edema, swelling of feet/ankles, lightheadedness, pre-syncope, shortness of breath on exertion or shortness of breath when lying down Resp: Denies: shortness of breath, productive cough, non-productive cough, wheezing, stridor, pain on inspiration, change in phlegm color, coughing up blood or chest congestion GI: Denies: abdominal pain, nausea, vomiting, vomiting blood, coffee grounds in vomit, difficulty swallowing, heartburn/indigestion, diarrhea, constipation, cramping, change in stool character, blood in stool or black tarry stool : Denies: flank pain, painful urination, urinary frequency, urinary urgency, urinary hesitancy or blood in urine Musc: Denies: neck pain, back pain, extremity pain, joint swelling, joint warmth or deformity Neuro: Denies: headache, numbness in extremities, weakness in extremities, changes in sensation, difficulty walking, frequent falls, dizziness, vertigo, behavioral changes, slurred speech or seizure-like activity Psych: Denies: anxiety, depression, suicidal ideation or homicidal ideation Endo: Denies: excessive urination, excessive thirst, tired all the time, cold intolerance or hot flashes Scott/Lymph: Denies: easy bruising or easy bleeding Medications/Allergies Allergies Allergy/AdvReac Type Severity Reaction Status Date / Time No Known Allergies Allergy Unverified 10/24/19 16:27 PFSH Acute PFSH: Medical History Anxiety and depression GERD (gastroesophageal reflux disease) Hyperlipidemia Parkinsons disease Family History Other Diabetes Social History Smoking and tobacco status: former smoker Alcohol intake: never Vitals/I&O/Wt Last Vital Signs Temp 98.7 F 10/24/19 22:45 Pulse 86 10/24/19 22:45 Resp 22 H 10/24/19 22:45 BP 98/63 10/24/19 22:45 Pulse Ox 97 10/24/19 22:45 10/24/19 10/24/19 10/25/19 14:59 22:59 06:59 Intake Total 1050 / 1050 Balance 1050 / 1050 Weight last 48 hrs Weight 99.79 kg Physical Exam Narrative: EXAM NARRATIVE: GEN: Awake, alert , slow responses, unable to ascertain orientation CVS: S1S2 N RS: CTA B/L Abd: Soft, nt/nd , bs+ Ext: tunneling decubitus wounds over buttocks with necrotic appearing margins. Foul smell+. left inner thigh cellulitis+ Data : 10/24/19 18:45 10/24/19 18:45 Micro: Microbiology 10/24/19 18:45 Blood Culture - Preliminary Blood SPECIMEN COLLECTED 10/24/19 18:45 Blood Culture - Preliminary Blood SPECIMEN COLLECTED A&P Assessment and plan (1) Decubitus ulcer, stage 4 with infection: Status: Acute Code(s): L89.94 - Pressure ulcer of unspecified site, stage 4; L08.9 - Local infection of the skin and subcutaneous tissue, unspecified (2) Type 2 diabetes mellitus: Status: Acute Code(s): E11.9 - Type 2 diabetes mellitus without complications (3) Parkinsons disease: Status: Acute Code(s): G20 - Parkinson's disease (4) Anxiety and depression: Status: Acute Code(s): F41.9 - Anxiety disorder, unspecified; F32.9 - Major depressive disorder, single episode, unspecified (5) Hyperlipidemia: Status: Acute Code(s): E78.5 - Hyperlipidemia, unspecified (6) Tardive dyskinesia: Status: Acute Code(s): G24.01 - Drug induced subacute dyskinesia (7) Hypertension: Status: Acute Code(s): I10 - Essential (primary) hypertension (8) Cellulitis: Status: Acute Code(s): L03.90 - Cellulitis, unspecified (9) Transaminitis: Status: Acute Code(s): R74.0 - Nonspecific elevation of levels of transaminase and lactic acid dehydrogenase [LDH] (10) JED (acute kidney injury): Status: Acute Code(s): N17.9 - Acute kidney failure, unspecified Additional A&P Information Admit to med/surg as inpatient 1. Infected sacral ulcer of unknown chronicity at this time with cellulitis Started on Zosyn and vancomycin in the ER, will continue same for now Associated end organ effects with transaminitis and JED may reflect underlying sepsis IVF hydration with NS @ 100 cc/hr Lactate negative Gram stain and cx from wound swab to ascertain any resistant colonizers. Likely to reflect polymicorbial growth. 2. Parkinson's disease, tardive dyskinesia, tremors: continue diazpeam, topir amate, trazodone 3. HTN: Hold losartan for now given JED and bp 98-100s 4. Transaminitis: hepatitis serolgy NR, will continue to trend with hydration. Unknown if patent was hypotensive at any point. Ct and RUQ negative for biliary obstruction DVt ppx: heparin Full code per review of prior hospitalization records. Attestations Medical Necessity Statement*: anticipate > 2 [place] admission for iv antib iotics,m cellultis Coding Level of Care Code Acute Cad Drafter for [facility] Fwd Diagnoses Decubitus ulcer, stage 4 with infection L89.94; L08.9 Type 2 diabetes mellitus E11.9 Parkinsons disease G20 Anxiety and depression F41.9; F32.9 Hyperlipidemia E78.5 Tardive dyskinesia G24.01 Hypertension I10 Cellulitis L03.90 Transaminitis R74.0 JED (acute kidney injury) N17.9
[2019-10-25] VITALS (10 sets, daily range): BP systolic 91–108; BP diastolic 56–69; PULSE 68–90; RESP 17–24; TEMP 36.5–37; O2SAT 91–98
--- NOTE | 2019-10-25 00:47 | PC.PHAR ---
Creatinine clearance is 65.00. Vancomycin is continued as given in ER at 1gm IVPB every 12 hours to produce a predicted trough level of 16.93 (population based pharmacokinetic analysis). A trough level has been ordered from the lab to be obtained before the fourth dose to confirm and adjust if needed.
[2019-10-25] MEDS: heparin 5,000 unit/mL INJ 1 mL 5000 UNIT SUBCUT ×2 (01:26→15:17)
[2019-10-25] MEDS: piperacillin-tazobactam 3.375 GM in sodium chloride 0.9% (plus) 50 ML IV ×4 (01:28→23:48)
[2019-10-25] MEDS: sodium chloride 0.9% 1,000 ML 100 ML IV (01:37)
--- NOTE | 2019-10-25 01:40 | PC.NURSE ---
Dr Valle here to see pt.
[2019-10-25] MEDS: vancomycin 1,000 MG in sodium chloride 0.9% 250 ML 250 MG IV ×2 (06:38→21:35)
[2019-10-25] MEDS: sodium chloride 0.9% 1,000 ML 75 ML IV ×2 (06:42→21:36)
[2019-10-25 06:46] LABS: Basophils # 0.1 10^3/uL (0.0-0.1); Basophils % 0.4 %; Eosinophils # 0.2 10^3/uL (0.0-0.8); Eosinophils % 1.9 %; Hematocrit 35.7 % (42.0-52.0); Hemoglobin 11.4 g/dL (11.7-16.6); Lymphocytes # 1.7 10^3/uL (0.8-4.8); Lymphocytes % 14.1 %; Mean Corpuscular HGB Conc 31.9 g/dL (30.0-36.0); Mean Corpuscular Volume 90.8 fL (80-94); Mean Platelet Volume 11.6 fL (7.4-10.4); Monocytes # 1.1 10^3/uL (0.2-0.9); Monocytes % 8.7 %; Neutrophils # 9.1 10^3/uL (1.8-7.7); Neutrophils % 73.4 %; Nucleated Red Blood Cells % 0 %; Platelet Count 422 10^3/cmm (130-400); Red Blood Count 3.93 10^6/uL (4.1-5.3); Red Cell Distribution Width 14.5 % (12.1-15.1); White Blood Count 12.4 10^3/uL (4.0-10.0)
[2019-10-25 07:03] LABS: Anion Gap 14.6 (5-19); Blood Urea Nitrogen 19 mg/dL (6-20); Calcium 8.8 mg/dL (8.5-10.5); Carbon Dioxide 23 mmol/L (22-29); Chloride 107 mmol/L (98-107); Glomerular Filtration Rate 63.6 mL/min (90-130); Glucose 73 mg/dL (65-115); Osmolality Calculated 287 mOsm/kg (285-295); Potassium 3.6 mmol/L (3.5-5.1); Sodium 141 mmol/L (136-145)
[2019-10-25] MEDS: topiramate 100 mg Tablet PO ×2 (08:25→17:47)
[2019-10-25] MEDS: benztropine 1 mg Tablet PO ×2 (08:25→17:47)
[2019-10-25] MEDS: pantoprazole DR 40 mg Tablet PO ×2 (08:26→17:47)
[2019-10-25] MEDS: bisacodyl 5 mg Tablet 10 MG PO (08:26)
[2019-10-25] MEDS: fluoxetine 20 mg Capsule PO (08:26)
[2019-10-25] MEDS: atorvastatin 40 mg Tablet 20 MG PO (08:26)
[2019-10-25] MEDS: docusate sodium 100 mg Capsule PO ×2 (08:30→17:49)
--- NOTE | 2019-10-25 10:25 | PC.CHAP ---
Pastoral Care Encounter/Spiritual Assessment Type of Contact [] Declined mannequin molder visit [] Patient/Family/Request visit [] Outpatient visit [] Follow-up visit [] Physician referral [] Code/Alert [x] Routine visit [] Staff referral [] Actively dying [] Patient sleeping [] Family support [] [] Out of room [] Palliative care [] [] Receiving care in room [] Pre-surgical visit [] Trauma [] Long length of stay [] ICU visit [] Other: Relational/Emotional Strength [x] Patient feels connected with others/family/visitors/staff [] Distress [] Loneliness/isolation [] Abandonment Spirituality of Patient [] Person of Eden [] Attends Druze of their Eden [] Believes in Prayer [] Reads Bible or Baptist materials [] There are Spiritual issues to be addressed Nursing Professor Interventions [x] Prayer [x] Active listening [] Non-anxious presence [] Spiritual/emotional support [] Crisis/trauma care [] Spiritual counseling [] Bereavement support [] Provided bereavement packet [] Provided Bible/devotional materials [] Provided toy/stuffed animal, coloring book to patient or family member [] Provided Communion [] Anointing/[place] [] Salvation [x] Completed spiritual assessment [] Other: Impact on Illness or Injury [] Angry [] Fearful [] Anxious [] Often cries [] Exhaustion [] Unable to work [] Unable to attend scientologist [] Unable to walk/stand [] Unable to read [] Unable to drive [] Unable to eat/drink [] Unable to sleep [] Unable to be with family [] Patient intubated [] Other: Summary Time spent with patient 10 min
--- NOTE | 2019-10-25 14:55 | PC.NURSE ---
Wound cultures completed at this time. Patient tolerated well. Kerlix soaked in sterile water packed in patient's wound at this time. Wound covered with ABD pad and taped in place. Cultures sent to lab.
--- NOTE | 2019-10-25 15:45 | P.CONIM_ITS ---
Providers/Reason For Consult Consulting Physican/Specialty*: Dr. Delgado Reason for Consult*: left hip decubitus ulcer Attending Physician: David Torres MD History of Present Illness History of Present Illness Kolby Pickett is a 54 year old male who presented to the ER with foul- smelling decubitus ulcer from the left wound. Patient has a history of Parkinson's disease and is a type II diabetic. No previous similar episodes in the past. He had a CT in the ER which showed extensive cellulitis and necrotic tissue but no abscess Review of Systems General: Reports: ROS unobtainable due to mental status (Difficulty with talking) Meds/Allergies Home Medications and Allergies Home Medications Medication Instructions Recorded Confirmed Type albuterol sulfate [Ventolin HFA] 2 puff INHALATION QID PRN 10/03/19 10/24/19 History amlodipine 2.5 mg PO DAILY 10/03/19 10/24/19 History benztropine 1 mg PO BID 10/03/19 10/24/19 History fluoxetine 20 mg PO DAILY 10/03/19 10/24/19 History losartan 25 mg PO DAILY 10/03/19 10/24/19 History metformin 500 mg PO DAILY 10/03/19 10/24/19 History ondansetron 4 mg PO Q6H PRN 10/03/19 10/24/19 History pantoprazole 40 mg PO BID 10/03/19 10/24/19 History potassium chloride 20 meq PO BID 10/03/19 10/24/19 History simvastatin 20 mg PO DAILY 10/03/19 10/24/19 History topiramate 100 mg PO BID 10/03/19 10/24/19 History trazodone 100 mg PO BEDTIME 10/03/19 10/24/19 History diazepam 2 mg PO BID PRN 30 Days #30 tab 10/04/19 10/24/19 Rx Allergies Allergy/AdvReac Type Severity Reaction Status Date / Time No Known Allergies Allergy Unverified 10/24/19 16:27 Current Medications Current Medications Generic Name Dose Route Start Last Admin Trade Name Freq PRN Reason Stop Dose Admin Atorvastatin Calcium 20 mg 10/25/19 09:00 10/25/19 08:26 Lipitor PO 20 mg DAILY JONATHAN Administration Benztropine Mesylate 1 mg 10/25/19 09:00 10/25/19 08:25 Cogentin PO 1 mg BID JONATHAN Administration Bisacodyl 10 mg 10/25/19 09:00 10/25/19 08:26 Dulcolax PO 10 mg DAILY JONATHAN Administration Docusate Sodium 100 mg 10/25/19 09:00 10/25/19 08:30 Colace PO 100 mg BID JONATHAN Administration Fluoxetine HCl 20 mg 10/25/19 09:00 10/25/19 08:26 Prozac PO 20 mg DAILY JONATHAN Administration Heparin Sodium (Beef Lung) 5,000 unit 10/25/19 00:30 10/25/19 15:17 Heparin SUBCUT 5,000 unit Q12H JONATHAN Administration Sodium Chloride 1,000 mls @ 100 mls/hr 10/24/19 21:15 10/25/19 06:42 Sodium Chloride 0.9% IV 75 mls/hr .Q10H JONATHAN Administration Sodium Chloride 1,000 mls @ 75 mls/hr 10/25/19 00:30 10/25/19 01:43 Sodium Chloride 0.9% IV Not Given .[id number] JONATHAN Piperacillin Sod/Tazobactam 50 mls @ 12.5 mls/hr 10/25/19 00:30 10/25/19 12:33 Sod 3.375 gm/ Sodium Chloride IV Infused Q8H JONATHAN Infusion Protocol As Directed Vancomycin HCl 1,000 mg/ 250 mls @ 250 mls/hr 10/25/19 07:00 10/25/19 07:38 Sodium Chloride IV Infused Q12H JONATHAN Infusion Protocol As Directed Pantoprazole Sodium 40 mg 10/25/19 09:00 10/25/19 08:26 Protonix PO 40 mg BID JONATHAN Administration Topiramate 100 mg 10/25/19 09:00 10/25/19 08:25 Topamax PO 100 mg BID JONATHAN Administration PFSH Acute PFSH: Medical History Anxiety and depression GERD (gastroesophageal reflux disease) Hyperlipidemia Parkinsons disease Family History Other Diabetes Social History Smoking and tobacco status: former smoker Alcohol intake: never Vitals/I&O/Wt Last Vital Signs Temp 98.4 F 10/25/19 11:56 Pulse 90 10/25/19 11:56 Resp 20 H 10/25/19 11:56 BP 92/58 10/25/19 11:56 Pulse Ox 98 10/25/19 11:56 10/25/19 10/25/19 10/25/19 06:59 14:59 22:59 Intake Total 1340.834 / 2390.834 300 / 300 Output Total 550 / 550 200 / 200 Balance 790.834 / 1840.834 100 / 100 Weight last 48 hrs Weight 220 lb Physical Exam Narrative: EXAM NARRATIVE: HEENT: Normocephalic Eye: Sclera /conjunctiva normal Respiratory and chest: Bilateral clear breath sounds on auscultation Cardiovascular: Normal S1 and S2 heart sounds Abdomen: Soft to palpation Neurological: Oriented to place person and time Skin: Intact, 3 x 3 cm wound left hip with necrotic tissue, foul-smelling drainage Data Micro: Micro: Microbiology 10/24/19 18:45 Blood Culture - Pr eliminary Blood SPECIMEN [facility] 10/24/19 18:45 Blood Culture - Pr eliminary Blood SPECIMEN [facility] A&P Assessment and plan (1) Decubitus ulcer, stage 4 with infection: N.p.o. after midnight Plan for debridement of wound left hip under MAC tomorrow Procedure, risks, benefits and alternatives have been discussed with the patient who wishes to proceed with surgery. Status: Acute Code(s): L89.94 - Pressure ulcer of unspecified site, stage 4; L08.9 - Local infection of the skin and subcutaneous tissue, unspecified Coding Level of Care Code Acute Director Of Psychiatry for [facility] Diagnoses Decubitus ulcer, stage 4 with infection L89.94; L08.9
--- NOTE | 2019-10-25 17:32 | P.PN_ITS ---
Subjective Subjective: Interval history: Admitted last night. H&P and labs noted. This morning on examination patient sitting comfortably in bed, AO x3 complains of pain in his hip and leg. Denies of any nausea, vomiting, headache, palpitations, shortness of breath. Remains hemodynamically stable. Vitals/I&O/Wt Last Vital Signs Temp 97.7 F 10/25/19 15:43 Pulse 82 10/25/19 15:43 Resp 18 10/25/19 15:43 BP 91/56 10/25/19 15:43 Pulse Ox 95 10/25/19 15:43 10/25/19 10/25/19 10/25/19 06:59 14:59 22:59 Intake Total 1340.834 / 2390.834 300 / 300 Output Total 550 / 550 200 / 200 300 / 500 Balance 790.834 / 1840.834 100 / 100 -300 / -200 Weight last 48 hrs Weight 80.824 kg Weight 99.79 kg Physical Exam Narrative: EXAM NARRATIVE: General: No acute distress, AO x3 HEENT: PERRLA, pupils bilaterally equal and reactive Chest: Normal vesicular breath sounds, no added sounds, equal good air entry bilaterally CVS: S1-S2 regular, no murmurs, no tachycardia, no gallops, no rubs Abdomen: Soft, nontender, no organomegaly, bowel sounds present Neuro: No focal deficits, no facial deformity, AO x3, power 5/5 in all limbs, tremors present Skin: Intact, 3 x 3 cm wound left hip with necrotic tissue, foul-smelling drainage Data : 10/25/19 05:37 10/25/19 05:37 Micro: Microbiology 10/25/19 14:35 Gram Stain - Final Buttock 10/24/19 18:45 Blood Culture - Preliminary Blood SPECIMEN COLLECTED 10/24/19 18:45 Blood Culture - Preliminary Blood SPECIMEN COLLECTED A&P Assessment and plan (1) Cellulitis: Status: Acute Code(s): L03.90 - Cellulitis, unspecified (2) Decubitus ulcer, stage 4 with infection: Status: Acute Code(s): L89.94 - Pressure ulcer of unspecified site, stage 4; L08.9 - Local infection of the skin and subcutaneous tissue, unspecified (3) JED (acute kidney injury): Status: Acute Code(s): N17.9 - Acute kidney failure, unspecified (4) Type 2 diabetes mellitus: Status: Acute Code(s): E11.9 - Type 2 diabetes mellitus without complications (5) Hypertension: Status: Acute Code(s): I10 - Essential (primary) hypertension (6) Transaminitis: Status: Acute Code(s): R74.0 - Nonspecific elevation of levels of transaminase and lactic acid dehydrogenase [LDH] (7) Tardive dyskinesia: Status: Acute Code(s): G24.01 - Drug induced subacute dyskinesia (8) Parkinsons disease: Status: Acute Code(s): G20 - Parkinson's disease (9) Anxiety and depression: Status: Acute Code(s): F41.9 - Anxiety disorder, unspecified; F32.9 - Major depressive disorder, single episode, unspecified (10) Hyperlipidemia: Status: Acute Code(s): E78.5 - Hyperlipidemia, unspecified Additional A&P Information Continue with vancomycin and Zosyn both renally dosed. Follow-up blood cultur es. Will de-escalate antibiotics as per the culture results. We will send wound cultures. Normal saline at 100 cc/h. We will get surgery consult for possible debridement. Procalcitonin, check MRSA swab. JED: Most likely sec from dehydration from chronic loss from the wound. Resolved in the a.m. labs today. Continue with IV hydration. Transaminitis: CT and right upper quadrant ultrasound negative for any biliary obstruction. Could be secondary to sepsis. Continue to monitor CMP daily. Hypertension: At home patient takes losartan and amlodipine which was withheld on admission because of JED. Blood pressure running on the lower side so we will continue to hold antihypertensives for now. Continue to monitor blood pressure. Anemia: Check TIBC. Continue with Protonix 40 mg twice daily for now which is his home dose. We will transfuse if hemoglobin falls below 7. Type 2 diabetes mellitus: Patient takes metformin at home. Check HbA1c. Hold oral hypoglycemics. Insulin sliding scale at low protocol AC and at bedtime. Parkinson's/tardive dyskinesia/tremors: Continue on home dose of benztropine 1 mg p.o. twice daily, diazepam 2 mg twice daily as needed, fluoxetine 20 mg daily, trazodone at bedtime, topiramate 100 mg twice daily. DVT prophylaxis: Heparin 5000 every 8 hourly. Full code Soft mechanical diet as per recent discharge, n.p.o. after midnight for possible debridement tomorrow morning. Attestations Medical Necessity Statement*: sepsis from cellulitis Time Spent in Patient Care: Greater than 35 minutes Coding Level of Care Code Acute Home Teaching Grades 9 Thru 12 Teacher for [facility] Fwd Diagnoses Cellulitis L03.90 Decubitus ulcer, stage 4 with infection L89.94; L08.9 JED (acute kidney injury) N17.9 Type 2 diabetes mellitus E11.9 Hypertension I10 Transaminitis R74.0 Tardive dyskinesia G24.01 Parkinsons disease G20 Anxiety and depression F41.9; F32.9 Hyperlipidemia E78.5
[2019-10-25] MEDS: trazodone 100 mg Tablet PO (21:36)
[2019-10-25 23:35] LABS: Procalcitonin 1.37 ng/mL (0-0.5); Thyroid Stimulating Hormone 1.51 uIU/mL (0.27-4.20)
[2019-10-26] VITALS (10 sets, daily range): BP systolic 92–124; BP diastolic 61–73; PULSE 58–79; RESP 18–20; TEMP 36.3–37.2; O2SAT 95–100
[2019-10-26 06:31] LABS: Glucose Point of Care 85 mg/dL (70-110)
--- NOTE | 2019-10-26 07:21 | ANES.PREANE2 ---
Pre-Anesthetic Assessment Pre-Anesthetic Assessment: Height/Weight: Height 1.8 m Weight 86.137 kg Temp Pulse Resp BP Pulse Ox 99.0 F 68 18 105/66 95 10/26/19 03:58 10/26/19 03:58 10/26/19 03:58 10/26/19 03:58 10/26/19 03:58 Preop Diagnosis: hip decubitus ulcer Proposed Procedure: Operation Date: 10/26/19 08:30 Proposed Procedures p left hip wound debridement(Left) - New Morocho MD Last intake: Intake Last Liquid Date 10/25/19 Last Liquid Time 23:55 Last Solid Date 10/25/19 Last Solid Time 19:30 Social: Social History: Tobacco (quit) and No alcohol Exam: Pre-Anes Outpt Exam: alert, oriented x 3, clear to auscultation bilaterally and regular rate & rhythm Airway: Submandibular: WNL Cervical ROM: WNL MP: 2 Dentition: Full History/ROS: No significant history except as noted Pulmonary: Pulmonary: COPD CV/HEM: CV/HEM: HTN : : None reported Hepatic: Hepatic: None reported GI: GI: GERD Metabolic: Metabolic: DM and Hyperlipidemia Neuropsych: Neuropsych: Anxiety and Depression Comments: Parkinson's dz Anesthetic Plan: ASA status: 3 Anesthesia: Anesthesia Evaluation and MAC Risk of > 500 ml blood loss (7ml/kg in children): No Meds/Allergies Current Medications: Current Medications Generic Name Dose Route Start Last Admin Trade Name Freq PRN Reason Stop Dose Admin Atorvastatin Calci um 20 mg 10/25/19 09:00 10/25/19 08:26 Lipitor PO 20 mg DAILY JONATHAN Administration Benztropine Mesyla te 1 mg 10/25/19 09:00 10/25/19 17:47 Cogentin PO 1 mg BID JONATHAN Administration Bisacodyl 10 mg 10/25/19 09:00 10/25/19 08:26 Dulcolax PO 10 mg DAILY JONATHAN Administration Docusate Sodium 100 mg 10/25/19 09:00 10/25/19 17:49 Colace PO 100 mg BID JONATHAN Administration Fluoxetine HCl 20 mg 10/25/19 09:00 10/25/19 08:26 Prozac PO 20 mg DAILY JONATHAN Administration Heparin Sodium (Be ef Lung) 5,000 unit 10/25/19 00:30 10/26/19 02:02 Heparin SUBCUT Not Given Q12H JONATHAN Sodium Chloride 1,000 mls @ 100 m ls/hr 10/24/19 21:15 10/26/19 06:23 Sodium Chloride 0.9% IV Not Given .Q10H JONATHAN Sodium Chloride 1,000 mls @ 75 ml s/hr 10/25/19 00:30 10/25/19 21:36 Sodium Chloride 0.9% IV 75 mls/hr .[id number] JONATHAN Administration Piperacillin Sod/T azobactam 50 mls @ 12.5 mls /hr 10/25/19 00:30 10/25/19 23:48 Sod 3.375 gm/ So dium Chloride IV 12.5 mls/hr Q8H JONATHAN Administration Protocol As Directed Vancomycin HCl 1,0 00 mg/ 250 mls @ 250 mls /hr 10/25/19 07:00 10/25/19 21:35 Sodium Chloride IV 250 mls/hr Q12H JONATHAN Administration Protocol As Directed Pantoprazole Sodiu m 40 mg 10/25/19 09:00 10/25/19 17:47 Protonix PO 40 mg BID JONATHAN Administration Topiramate 100 mg 10/25/19 09:00 10/25/19 17:47 Topamax PO 100 mg BID JONATHAN Administration Trazodone HCl 100 mg 10/25/19 21:00 10/25/19 21:36 Desyrel PO 100 mg BEDTIME JONATHAN Administration PFSH Anesthesia PFSH: Medical History Anxiety and depression GERD (gastroesophageal reflux disease) Hyperlipidemia Parkinsons disease Family History Other Diabetes Social History Smoking and tobacco status: former smoker Alcohol intake: never Data Anesthesia CBC & Chem 7: 10/25/19 05:37 10/25/19 05:37 Other Labs: Laboratory Results - last 48 hr 10/24/19 10/24/19 10/24/19 18:45 18:45 18:45 WBC 15.7 H RBC 3.84 L Hgb 11.1 L Hct 33.2 L MCV 86.5 MCH 28.9 MCHC 33.4 RDW 14.3 Plt Count 419 H MPV 11.3 H Neut % (Auto) 76.6 Lymph % (Auto) 12.2 [place] % (Auto) 8.6 Eos % (Auto) 0.8 Baso % (Auto) 0.3 Neut # (Auto) 12.1 H Lymph # (Auto) 1.9 [place] # (Auto) 1.4 H Eos # (Auto) 0.1 Baso # (Auto) 0.0 Nucleated RBC % (auto) 0 Nucleated RBCs # 0.0 Sodium 128 L Potassium 3.7 Chloride 96 L Carbon Dioxide 19 L Anion Gap 16.7 BUN 32 H Creatinine 1.6 H GFR Calculation 45.6 L Glucose 81 POC Glucose Calculated Osmolality 262 L Lactate 1.6 Calcium 8.8 Total Bilirubin 0.7 AST 316 H ALT 214 H Alkaline Phosphatase 221 H C-Reactive Protein 146.5 H Total Protein 6.4 L Albumin 2.7 L Globulin 3.7 Lipase Procalcitonin TSH Urine Color Urine Appearance Urine pH Ur Specific [place] Urine Protein Urine Glucose (UA) Urine Ketones Urine Blood Urine Nitrate Urine Bilirubin Urine Urobilinogen Ur Leukocyte Esterase Urine Opiates Screen Ur Barbiturates Screen Ur Phencyclidine Scrn Ur Amphetamines Screen U Benzodiazepines Scrn Urine Cocaine Screen U Marijuana (THC) Screen Hepatitis A IgM Ab Hep Bs Antigen Hep B Core IgM Ab Hepatitis C Antibody 10/24/19 10/24/19 10/24/19 18:45 18:45 19:04 WBC RBC Hgb Hct MCV MCH MCHC RDW Plt Count MPV Neut % (Auto) Lymph % (Auto) [place] % (Auto) Eos % (Auto) Baso % (Auto) Neut # (Auto) Lymph # (Auto) [place] # (Auto) Eos # (Auto) Baso # (Auto) Nucleated RBC % (auto) Nucleated RBCs # Sodium Potassium Chloride Carbon Dioxide Anion Gap BUN Creatinine GFR Calculation Glucose POC Glucose Calculated Osmolality Lactate Calcium Total Bilirubin AST ALT Alkaline Phosphatase C-Reactive Protein Total Protein Albumin Globulin Lipase 25 Procalcitonin TSH Urine Color Yellow Urine Appearance Clear Urine pH 5 Ur Specific [place] 1.005 Urine Protein Neg Urine Glucose (UA) Norm Urine Ketones Negative Urine Blood Neg Urine Nitrate Negative Urine Bilirubin Neg Urine Urobilinogen 1 H Ur Leukocyte Esterase Negative Urine Opiates Screen Ur Barbiturates Screen Ur Phencyclidine Scrn Ur Amphetamines Screen U Benzodiazepines Scrn Urine Cocaine Screen U Marijuana (THC) Screen Hepatitis A IgM Ab Non-reactive Hep Bs Antigen Non-reactive Hep B Core IgM Ab Non-reactive Hepatitis C Antibody Non-reactive 10/24/19 10/25/19 10/25/19 19:04 05:37 05:37 WBC 12.4 H RBC 3.93 L Hgb 11.4 L Hct 35.7 L MCV 90.8 MCH 29.0 MCHC 31.9 RDW 14.5 Plt Count 422 H MPV 11.6 H Neut % (Auto) 73.4 Lymph % (Auto) 14.1 [place] % (Auto) 8.7 Eos % (Auto) 1.9 Baso % (Auto) 0.4 Neut # (Auto) 9.1 H Lymph # (Auto) 1.7 [place] # (Auto) 1.1 H Eos # (Auto) 0.2 Baso # (Auto) 0.1 Nucleated RBC % (auto) 0 Nucleated RBCs # 0.0 Sodium 141 D Potassium 3.6 Chloride 107 Carbon Dioxide 23 Anion Gap 14.6 BUN 19 Creatinine 1.2 GFR Calculation 63.6 L Glucose 73 POC Glucose Calculated Osmolality 287 Lactate Calcium 8.8 Total Bilirubin AST ALT Alkaline Phosphatase C-Reactive Protein Total Protein Albumin Globulin Lipase Procalcitonin TSH Urine Color Urine Appearance Urine pH Ur Specific [place] Urine Protein Urine Glucose (UA) Urine Ketones Urine Blood Urine Nitrate Urine Bilirubin Urine Urobilinogen Ur Leukocyte Esterase Urine Opiates Screen Negative Ur Barbiturates Screen Positive H Ur Phencyclidine Scrn Negative Ur Amphetamines Screen Negative U Benzodiazepines Scrn Positive H Urine Cocaine Screen Negative U Marijuana (THC) Screen Negative Hepatitis A IgM Ab Hep Bs Antigen Hep B Core IgM Ab Hepatitis C Antibody 10/25/19 10/26/19 21:07 06:27 WBC RBC Hgb Hct MCV MCH MCHC RDW Plt Count MPV Neut % (Auto) Lymph % (Auto) [place] % (Auto) Eos % (Auto) Baso % (Auto) Neut # (Auto) Lymph # (Auto) [place] # (Auto) Eos # (Auto) Baso # (Auto) Nucleated RBC % (auto) Nucleated RBCs # Sodium Potassium Chloride Carbon Dioxide Anion Gap BUN Creatinine GFR Calculation Glucose POC Glucose 85 Calculated Osmolality Lactate Calcium Total Bilirubin AST ALT Alkaline Phosphatase C-Reactive Protein Total Protein Albumin Globulin Lipase Procalcitonin 1.37 H TSH 1.51 Urine Color Urine Appearance Urine pH Ur Specific [place] Urine Protein Urine Glucose (UA) Urine Ketones Urine Blood Urine Nitrate Urine Bilirubin Urine Urobilinogen Ur Leukocyte Esterase Urine Opiates Screen Ur Barbiturates Screen Ur Phencyclidine Scrn Ur Amphetamines Screen U Benzodiazepines Scrn Urine Cocaine Screen U Marijuana (THC) Screen Hepatitis A IgM Ab Hep Bs Antigen Hep B Core IgM Ab Hepatitis C Antibody Micro: Microbiology 10/24/19 18:45 Blood Culture - Preliminary Blood NEGATIVE TO DATE 10/24/19 18:45 Blood Culture - Preliminary Blood NEGATIVE TO DATE 10/25/19 14:35 Gram Stain - Final Buttock Cardiac Studies: No Data to Display
--- NOTE | 2019-10-26 07:24 | W.PM.OPSUD ---
Surgery/Procedure H&P Update DATE OF PROCEDURE: October 26, 2019 DATE H&P PERFORMED: 10/25/19 H&P UPDATE INFORMATION: I have reviewed H&P completed within last 30 days, I have examined patient prior to procedure and No changes to prior documentation PREOP DIAGNOSIS: hip decubitus ulcer PLANNED PROCEDURE: Operation Date: 10/26/19 08:30 Proposed Procedures p left hip wound debridement(Left) - New Morocho MD
[2019-10-26] MEDS: sodium chloride 0.9% 1,000 ML 30 ML IV (07:28)
[2019-10-26 08:15] LABS: Glucose Point of Care 99 mg/dL (70-110)
[2019-10-26 08:15] LABS: Glucose Point of Care 73 mg/dL (70-110)
[2019-10-26] MEDS: piperacillin-tazobactam 3.375 GM in sodium chloride 0.9% (plus) 50 ML IV ×3 (08:22→23:51)
[2019-10-26 08:33] LABS: Basophils # 0.1 10^3/uL (0.0-0.1); Basophils % 0.8 %; Eosinophils # 0.4 10^3/uL (0.0-0.8); Eosinophils % 5.3 %; Hemoglobin 10.5 g/dL (11.7-16.6); Lymphocytes # 1.8 10^3/uL (0.8-4.8); Lymphocytes % 22.2 %; Mean Corpuscular HGB Conc 30.9 g/dL (30.0-36.0); Mean Corpuscular Hemoglobin 28.4 pg (28.0-34.0); Mean Corpuscular Volume 91.9 fL (80-94); Mean Platelet Volume 11.7 fL (7.4-10.4); Monocytes # 0.9 10^3/uL (0.2-0.9); Monocytes % 10.9 %; Neutrophils # 4.9 10^3/uL (1.8-7.7); Neutrophils % 59.3 %; Nucleated Red Blood Cells % 0 %; Platelet Count 455 10^3/cmm (130-400); Red Cell Distribution Width 15.1 % (12.1-15.1); White Blood Count 8.3 10^3/uL (4.0-10.0)
[2019-10-26 08:53] LABS: Alanine Aminotransferase 121 U/L (0-41); Albumin Level 2.5 g/dL (3.5-5.2); Alkaline Phosphatase 155 IU/L (40-130); Anion Gap 17.6 (5-19); Aspartate Amino Transferase 84 U/L (0-40); Blood Urea Nitrogen 12 mg/dL (6-20); Calcium 8.8 mg/dL (8.5-10.5); Carbon Dioxide 20 mmol/L (22-29); Chloride 108 mmol/L (98-107); Globulin 3.6 g/dL (1.3-4.6); Glomerular Filtration Rate 78.5 mL/min (90-130); Glucose 65 mg/dL (65-115); Osmolality Calculated 288 mOsm/kg (285-295); Potassium 3.6 mmol/L (3.5-5.1); Sodium 142 mmol/L (136-145); Total Bilirubin 0.3 mg/dL (0.15-1.2); Total Protein 6.1 g/dL (6.6-8.7)
[2019-10-26 09:19] LABS: Iron 45 ug/dL (59-158); Percent Saturation 38.7 % (20-50); Total Iron Binding Capacity 116 mcg/dl; Unsaturated Iron Binding 71 ug/dL (112-347)
--- NOTE | 2019-10-26 09:31 | SUR.PHASEII ---
PT GLUCOSE CHECK 87 PT ALERT TAKING SIPS OF APPLE JUICE
--- NOTE | 2019-10-26 10:01 | SUR.OPER ---
0945 PTTO ROOM PER BED PT ALERT TALKATIVE ASSISTED PT IN USING URINAL, BP 105/63, HR 79, RESP 18 , SATS ON RA 100%
--- NOTE | 2019-10-26 10:02 | PM.OP ---
Operative Report Date of procedure: October 26, 2019 Pre-op Diagnosis: hip decubitus ulcer Post-op Diagnosis: Left hip decubitus ulcer measuring 7 x 6 x 5 cm Procedure Done: Excisional debridement of necrotic skin, subcutaneous tissue, muscle from left hip wound using 15 blade measuring 7 x 6 x 5 cm Pathology: Wound cultures Surgeon: New Morocho Anesthesia: MAC Estimated blood loss (mL): 10 Condition: stable Disposition: PACU Procedure: The patient was taken to the operating room and placed in right lateral position under MAC. Using 15 blade excisional debridement of necrotic skin, subcutaneous tissue, muscle was performed until there was punctate bleeding noted. This resulted in a wound measuring 7 x 6 x 5 cm deep. Wound cultures were sent. The wound was irrigated with saline, hemostasis ensured and 2 separate 4 x 8 cm Surgicel was placed. The wound was packed with moist Kerlix gauze and covered with ABDs. The patient was transferred to recovery room in stable condition.
[2019-10-26 10:35] LABS: Glucose Point of Care 87 mg/dL (70-110)
--- NOTE | 2019-10-26 14:38 | P.PN_ITS ---
Subjective Subjective: Interval history: Patient seen postop after debridement today. Lying comfortably in bed. Coming out of anesthesia. Denies of any nausea, vomiting, headache. No acute events overnight. Vitals/I&O/Wt Last Vital Signs Temp 97.9 F 10/26/19 11:31 Pulse 70 10/26/19 13:59 Resp 18 10/26/19 13:59 BP 103/68 10/26/19 11:31 Pulse Ox 96 10/26/19 13:59 10/25/19 10/26/19 10/26/19 22:59 06:59 14:59 Intake Total 50 / 350 50 / 400 50 / 50 Output Total 300 / 500 725 / 1225 Balance -250 / -150 -675 / -825 50 / 50 Weight last 48 hrs Weight 86.137 kg Weight 80.824 kg Weight 99.79 kg Physical Exam Narrative: EXAM NARRATIVE: General: No acute distress, AO x3 HEENT: PERRLA, pupils bilaterally equal and reactive Chest: Normal vesicular breath sounds, no added sounds, equal good air entry bilaterally CVS: S1-S2 regular, no murmurs, no tachycardia, no gallops, no rubs Abdomen: Soft, nontender, no organomegaly, bowel sounds present Neuro: No focal deficits, no facial deformity, AO x3, power 5/5 in all limbs, tremors present Skin: Intact, 3 x 3 cm wound left hip with necrotic tissue, foul-smelling drainage Data : 10/26/19 04:30 10/26/19 04:30 Micro: Microbiology 10/24/19 18:45 Blood Culture - Preliminary Blood NEGATIVE TO DATE 10/24/19 18:45 Blood Culture - Preliminary Blood NEGATIVE TO DATE 10/25/19 14:35 Gram Stain - Final Buttock A&P Assessment and plan (1) Cellulitis: Status: Acute Code(s): L03.90 - Cellulitis, unspecified (2) Decubitus ulcer, stage 4 with infection: Status: Acute Code(s): L89.94 - Pressure ulcer of unspecified site, stage 4; L08.9 - Local infection of the skin and subcutaneous tissue, unspecified (3) JED (acute kidney injury): Status: Acute Code(s): N17.9 - Acute kidney failure, unspecified (4) Type 2 diabetes mellitus: Status: Acute Code(s): E11.9 - Type 2 diabetes mellitus without complications (5) Hypertension: Status: Acute Code(s): I10 - Essential (primary) hypertension (6) Transaminitis: Status: Acute Code(s): R74.0 - Nonspecific elevation of levels of transaminase and lactic acid dehyd rogenase [LDH] (7) Tardive dyskinesia: Status: Acute Code(s): G24.01 - Drug induced subacute dyskinesia (8) Parkinsons disease: Status: Acute Code(s): G20 - Parkinson's disease (9) Anxiety and depression: Status: Acute Code(s): F41.9 - Anxiety disorder, unspecified; F32.9 - Major depressive disorder, single episode, unspecified (10) Hyperlipidemia: Status: Acute Code(s): E78.5 - Hyperlipidemia, unspecified Additional A&P Information Cellulitis/decubitus ulcer: Post debridement day 0. Continue with vancomycin and Zosyn both renally dosed. Follow-up blood cultures. Will de-escalate antibiotics as per the wound culture results from the OR today. Change fluid to D5 NS at 75 cc/h. Appreciate Dr. Morocho help. MRSA swab awaited. JED: Most likely sec from dehydration from chronic loss from the wound. Resolved in the a.m. labs today. Continue with IV hydration. Transaminitis: CT and right upper quadrant ultrasound negative for any biliary obstruction. Could be secondary to sepsis. Continue to monitor CMP daily. Hypertension: At home patient takes losartan and amlodipine which was withheld on admission because of JED. Blood pressure running on the lower side so we will continue to hold antihypertensives for now. Continue to monitor blood pressure. 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 Start on oral iron supplementation twice daily. Continue with Protonix 40 mg twice daily for now which is his home dose. We will transfuse if hemoglobin falls below 7. Type 2 diabetes mellitus: Patient takes metformin at home. Check HbA1c. Hold oral hypoglycemics. Blood sugars on the lower side so we will change the fluid to D5 NS. Insulin sliding scale at low protocol AC and at bedtime. Parkinson's/tardive dyskinesia/tremors: Continue on home dose of benztropine 1 mg p.o. twice daily, diazepam 2 mg twice daily as needed, fluoxetine 20 mg daily, trazodone at bedtime, topiramate 100 mg twice daily. DVT prophylaxis: Heparin 5000 every 8 hourly. Full code Soft mechanical diet as per recent discharge, Attestations Medical Necessity Statement*: Sepsis from cellulitis and decubitus ulcer. 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
[2019-10-26 16:24] LABS: Estmated Average Glucose 114; Hemoglobin A1C 5.6 % (4.0-6.0)
[2019-10-26] MEDS: dextrose 5%-sod chloride 0.9% 1,000 ML 75 ML IV (16:59)
[2019-10-26] MEDS: heparin 5,000 unit/mL INJ 1 mL 5000 UNIT SUBCUT (18:02)
[2019-10-26] MEDS: pantoprazole DR 40 mg Tablet PO (18:08)
[2019-10-26] MEDS: topiramate 100 mg Tablet PO (18:08)
[2019-10-26] MEDS: docusate sodium 100 mg Capsule PO (18:08)
[2019-10-26] MEDS: ferrous sulfate EC 325 mg Tablet PO (18:08)
[2019-10-26] MEDS: benztropine 1 mg Tablet PO (18:08)
[2019-10-26] MEDS: trazodone 100 mg Tablet PO (20:35)
[2019-10-26] MEDS: vancomycin 1,000 MG in sodium chloride 0.9% 250 ML 250 MG IV (20:53)
[2019-10-27] VITALS: BP 99/62; PULSE 71; RESP 16; TEMP 36.4; O2SAT 97
[2019-10-27] MEDS: heparin 5,000 unit/mL INJ 1 mL 5000 UNIT SUBCUT ×2 (02:09→16:01)
[2019-10-27] MEDS: dextrose 5%-sod chloride 0.9% 1,000 ML 75 ML IV ×3 (02:10→21:51)
[2019-10-27] MEDS: diazePAM 2 mg Tablet PO (03:39)
[2019-10-27 04:00] VITALS: BP 113/67; PULSE 73; RESP 18; TEMP 37.2; O2SAT 97
[2019-10-27 06:07] LABS: Basophils # 0.1 10^3/uL (0.0-0.1); Basophils % 0.8 %; Eosinophils # 0.3 10^3/uL (0.0-0.8); Eosinophils % 4.2 %; Hematocrit 29.6 % (42.0-52.0); Hemoglobin 9.6 g/dL (11.7-16.6); Lymphocytes # 1.9 10^3/uL (0.8-4.8); Lymphocytes % 24.4 %; Mean Corpuscular HGB Conc 32.4 g/dL (30.0-36.0); Mean Corpuscular Volume 89.4 fL (80-94); Mean Platelet Volume 11.2 fL (7.4-10.4); Monocytes # 0.7 10^3/uL (0.2-0.9); Monocytes % 9.2 %; Neutrophils # 4.7 10^3/uL (1.8-7.7); Neutrophils % 59.5 %; Nucleated Red Blood Cells % 0 %; Platelet Count 484 10^3/cmm (130-400); Red Blood Count 3.31 10^6/uL (4.1-5.3); Red Cell Distribution Width 14.6 % (12.1-15.1); White Blood Count 7.8 10^3/uL (4.0-10.0)
[2019-10-27 06:23] LABS: Alanine Aminotransferase 75 U/L (0-41); Albumin Level 2.5 g/dL (3.5-5.2); Alkaline Phosphatase 126 IU/L (40-130); Anion Gap 13.5 (5-19); Aspartate Amino Transferase 37 U/L (0-40); Blood Urea Nitrogen 7 mg/dL (6-20); Calcium 8.6 mg/dL (8.5-10.5); Carbon Dioxide 22 mmol/L (22-29); Chloride 111 mmol/L (98-107); Creatinine Clr Calc Pharmacy 121.6643; Globulin 3.7 g/dL (1.3-4.6); Glomerular Filtration Rate 101.5 mL/min (90-130); Glucose 84 mg/dL (65-115); Osmolality Calculated 291 mOsm/kg (285-295); Potassium 3.5 mmol/L (3.5-5.1); Sodium 143 mmol/L (136-145); Total Bilirubin 0.3 mg/dL (0.15-1.2); Total Protein 6.2 g/dL (6.6-8.7)
[2019-10-27 06:42] LABS: Glucose Point of Care 84 mg/dL (70-110)
--- NOTE | 2019-10-27 07:38 | PC.NURSE ---
this nurse called pharmacy due to vancomycin being due at 0800 and it being his 4th dose, the vanc trough is not due until 1800, sultana in pharmacy stated that it was ok for the 4th dose of vancomycin to be given at this time. student nurses are giving this dose with instructr mrs mota.
[2019-10-27 07:49] VITALS: PULSE 85; RESP 18; O2SAT 98
[2019-10-27] MEDS: vancomycin 1,000 MG in sodium chloride 0.9% 250 ML 250 MG IV (08:23)
[2019-10-27] MEDS: bisacodyl 5 mg Tablet 10 MG PO (09:06)
[2019-10-27] MEDS: ferrous sulfate EC 325 mg Tablet PO ×2 (09:06→18:07)
[2019-10-27] MEDS: atorvastatin 40 mg Tablet 20 MG PO (09:08)
[2019-10-27] MEDS: topiramate 100 mg Tablet PO ×2 (09:08→18:07)
[2019-10-27] MEDS: benztropine 1 mg Tablet PO ×2 (09:08→18:07)
[2019-10-27] MEDS: docusate sodium 100 mg Capsule PO ×2 (09:08→18:07)
[2019-10-27] MEDS: fluoxetine 20 mg Capsule PO (09:09)
[2019-10-27] MEDS: pantoprazole DR 40 mg Tablet PO ×2 (09:09→18:08)
[2019-10-27] MEDS: piperacillin-tazobactam 3.375 GM in sodium chloride 0.9% (plus) 50 ML IV ×2 (09:32→16:02)
--- NOTE | 2019-10-27 09:40 | PC.SOCIAL ---
IMM Page 2 of IMM given to patient. Initialed, dated, and timed and placed in chart. Copy provided patient.
--- NOTE | 2019-10-27 13:36 | P.PN_ITS ---
Subjective Subjective: Interval history: Patient seen postop after debridement today. Lying comfortably in bed. Coming out of anesthesia. Denies of any nausea, vomiting, headache. No acute events overnight. Vitals/I&O/Wt Last Vital Signs Temp 99.0 F 10/27/19 04:00 Pulse 85 10/27/19 07:49 Resp 18 10/27/19 07:49 BP 113/67 10/27/19 04:00 Pulse Ox 98 10/27/19 07:49 10/26/19 10/27/19 10/27/19 22:59 06:59 14:59 Intake Total 300 / 350 738.75 / 1088.75 467.5 / 467.5 Output Total 900 / 900 Balance -600 / -550 738.75 / 188.75 467.5 / 467.5 Weight last 48 hrs Weight 86.137 kg Physical Exam Narrative: EXAM NARRATIVE: General: No acute distress, AO x3 HEENT: PERRLA, pupils bilaterally equal and reactive Chest: Normal vesicular breath sounds, no added sounds, equal good air entry bilaterally CVS: S1-S2 regular, no murmurs, no tachycardia, no gallops, no rubs Abdomen: Soft, nontender, no organomegaly, bowel sounds present Neuro: No focal deficits, no facial deformity, AO x3, power 5/5 in all limbs, tremors present Skin: Postop dressing present in the decubitus area, no drainage no soakage. Data : 10/27/19 05:25 10/27/19 05:25 Micro: Microbiology 10/25/19 14:35 Anaerobic Culture - Preliminary Buttock 10/26/19 18:20 MRSA Culture - Final Nose 10/25/19 14:35 Gram Stain - Final Buttock Wound Culture - Preliminary Gram Negative Rods 10/26/19 09:10 Gram Stain - Final Buttock Tissue Culture - Preliminary Gram Negative Rods A&P Assessment and plan (1) Cellulitis: Status: Acute Code(s): L03.90 - Cellulitis, unspecified (2) Decubitus ulcer, stage 4 with infection: Status: Acute Code(s): L89.94 - Pressure ulcer of unspecified site, stage 4; L08.9 - Local infection of the skin and subcutaneous tissue, unspecified (3) JED (acute kidney injury): Status: Acute Code(s): N17.9 - Acute kidney failure, unspecified (4) Type 2 diabetes mellitus: Status: Acute Code(s): E11.9 - Type 2 diabetes mellitus without complications (5) Hypertension: Status: Acute Code(s): I10 - Essential (primary) hypertension (6) Transaminitis: Status: Acute Code(s): R74.0 - Nonspecific elevation of levels of transaminase and lactic acid d ehydrogenase [LDH] (7) Tardive dyskinesia: Status: Acute Code(s): G24.01 - Drug induced subacute dyskinesia (8) Parkinsons disease: Status: Acute Code(s): G20 - Parkinson's disease (9) Anxiety and depression: Status: Acute Code(s): F41.9 - Anxiety disorder, unspecified; F32.9 - Major depressive disorder, single episode, unspecified (10) Hyperlipidemia: Status: Acute Code(s): E78.5 - Hyperlipidemia, unspecified Additional A&P Information Cellulitis/decubitus ulcer: Post debridement day 1. Wound cultures growing gram-negative rods. And MRSA is negative so we will discontinue vancomycin and continue with Zosyn only for now. We will follow-up cultures to rule out ESBL. Patient tolerating diet well so we will discontinue fluids. Appreciate Dr. Morocho help. Wound care as per Dr. Morocho. JED: Most likely sec from dehydration from chronic loss from the wound. Resolved in the a.m. labs today. Continue with IV hydration. Transaminitis: Resolved. CT and right upper quadrant ultrasound negative for any biliary obstruction. Could be secondary to sepsis. Continue to monitor CMP daily. Hypertension: At home patient takes losartan and amlodipine which was withheld on admission because of JED. Blood pressure running on the lower side so we will continue to hold antihypertensives for now. Continue to monitor blood pressure. 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 Continue with oral iron supplementation twice daily. Continue with Protonix 40 mg twice daily for now which is his home dose. We will transfuse if hemoglobin falls below 7. Type 2 diabetes mellitus: Patient takes metformin at home. Check HbA1c. Hold oral hypoglycemics. Blood sugars have remained borderline normal. We will continue to monitor AC at bedtime. Change diet to regular diet from carb consistent. Most likely patient does not need any oral hypoglycemics as an outpatient. Parkinson's/tardive dyskinesia/tremors: Continue on home dose of benztropine 1 mg p.o. twice daily, diazepam 2 mg twice daily as needed, fluoxetine 20 mg daily, trazodone at bedtime, topiramate 100 mg twice daily. DVT prophylaxis: Heparin 5000 every 8 hourly. Full code Soft mechanical diet as per recent discharge, Attestations Medical Necessity Statement*: Sepsis from decubitus ulcer, cellulitis, postop day 1 from debridement Time Spent in Patient Care: Greater than 35 minutes Coding Level of Care Code Acute [facility] Staff [facility] Diagn[facility] Cellulitis L03.90 Decubitus ulcer, stage 4 with infection L89.94; L08.9 JED (acute kidney injury) N17.9 Type 2 diabetes mellitus E11.9 Hypertension I10 Transaminitis R74.0 Tardive dyskinesia G24.01 Parkinsons disease G20 Anxiety and depression F41.9; F32.9 Hyperlipidemia E78.5
[2019-10-27 15:20] VITALS: BP 122/71; PULSE 77; RESP 18; TEMP 36.6; O2SAT 96
[2019-10-27 18:07] LABS: Glucose Point of Care 90 mg/dL (70-110)
[2019-10-27 20:00] VITALS: BP 110/73; PULSE 68; RESP 18; TEMP 36.6; O2SAT 98
[2019-10-27 21:01] VITALS: PULSE 71; RESP 18; O2SAT 99
[2019-10-27] MEDS: trazodone 100 mg Tablet PO (21:45)
[2019-10-28] VITALS (9 sets, daily range): BP systolic 118–145; BP diastolic 58–85; PULSE 73–81; RESP 17–24; TEMP 36.4–36.9; O2SAT 95–99
[2019-10-28] MEDS: piperacillin-tazobactam 3.375 GM in sodium chloride 0.9% (plus) 50 ML IV ×3 (00:20→16:28)
--- NOTE | 2019-10-28 02:00 | PC.NURSE ---
Pt soiled dressing with feces, Dressing and packing removed, wound cleansed with sterile saline, packed with wet kerlex, covered with an ABD pad and secured with island dressings. Pt began yelling at staff stating You shouldn't have to do that anymore, that's what they give me the antibiotics for, so I don't have to have that changed all the time. It's ok if it gets poo in it. Pt reminded about infection prevention and the doctor's wound care orders. Pt states I don't care what you say, the doctor told me as long as I am getting those antibiotics that bandage wont matter. Pt denies other needs at this time.
[2019-10-28] MEDS: heparin 5,000 unit/mL INJ 1 mL 5000 UNIT SUBCUT ×2 (04:13→16:32)
--- NOTE | 2019-10-28 04:30 | PC.NURSE ---
Pt very irritable with staff. Pt demanding to be changed stating I pooed and I need you to change me. Pt informed bed was clean and dry and there was no feces at this time. Pt began to scream at staff stating You bitch, you need to get over here and change me! Staff offered to assist pt to the bathroom, pt states Just get out of my room, go on. Pt denies other needs at this time.
[2019-10-28 06:09] LABS: Basophils % 0.4 %; Eosinophils # 0.3 10^3/uL (0.0-0.8); Eosinophils % 3.1 %; Hematocrit 29.7 % (42.0-52.0); Hemoglobin 9.5 g/dL (11.7-16.6); Lymphocytes % 21.6 %; Mean Corpuscular Hemoglobin 28.8 pg (28.0-34.0); Monocytes # 0.7 10^3/uL (0.2-0.9); Monocytes % 7.5 %; Neutrophils # 5.9 10^3/uL (1.8-7.7); Neutrophils % 64.2 %; Nucleated Red Blood Cells % 0 %; Platelet Count 542 10^3/cmm (130-400); Red Cell Distribution Width 14.5 % (12.1-15.1); White Blood Count 9.3 10^3/uL (4.0-10.0)
[2019-10-28 06:22] LABS: Estmated Average Glucose 108; Hemoglobin A1C 5.4 % (4.0-6.0)
[2019-10-28 06:30] LABS: Alanine Aminotransferase 53 U/L (0-41); Albumin Level 2.5 g/dL (3.5-5.2); Alkaline Phosphatase 105 IU/L (40-130); Aspartate Amino Transferase 23 U/L (0-40); Blood Urea Nitrogen 5 mg/dL (6-20); Calcium 8.4 mg/dL (8.5-10.5); Carbon Dioxide 23 mmol/L (22-29); Chloride 111 mmol/L (98-107); Creatinine Clr Calc Pharmacy 121.6643; Globulin 3.5 g/dL (1.3-4.6); Glomerular Filtration Rate 101.5 mL/min (90-130); Glucose 85 mg/dL (65-115); Osmolality Calculated 291 mOsm/kg (285-295); Sodium 143 mmol/L (136-145); Total Bilirubin 0.3 mg/dL (0.15-1.2)
[2019-10-28 06:49] LABS: Glucose Point of Care 81 mg/dL (70-110)
[2019-10-28] MEDS: pantoprazole DR 40 mg Tablet PO ×2 (08:44→17:49)
[2019-10-28] MEDS: bisacodyl 5 mg Tablet 10 MG PO (08:44)
[2019-10-28] MEDS: fluoxetine 20 mg Capsule PO (08:44)
[2019-10-28] MEDS: atorvastatin 40 mg Tablet 20 MG PO (08:44)
[2019-10-28] MEDS: docusate sodium 100 mg Capsule PO ×2 (08:44→17:49)
[2019-10-28] MEDS: topiramate 100 mg Tablet PO ×2 (08:45→17:49)
[2019-10-28] MEDS: ferrous sulfate EC 325 mg Tablet PO ×2 (08:47→17:49)
[2019-10-28] MEDS: benztropine 1 mg Tablet PO ×2 (08:47→17:49)
[2019-10-28 10:57] LABS: Glucose Point of Care 94 mg/dL (70-110)
[2019-10-28] MEDS: dextrose 5%-sod chloride 0.9% 1,000 ML 75 ML IV (11:32)
[2019-10-28] MEDS: diazePAM 2 mg Tablet PO ×2 (11:36→21:18)
--- NOTE | 2019-10-28 14:45 | PC.NURSE ---
Patient ambulated to the bathroom with this nurse doing a stand by assist. Patient ambulated into the bathroom and then proceed to stick his right index finger in his rectum pull it out with stool on it a point it towards this nurse stating, I told you I had shit in inside of me and you did not believe me. This nurse stated to the patient, No what you said to me was that you needed to go to the bathroom that is why we are here in the bathroom. It is not appropriate for you to be putting your fingers into your rectum. Please do not do that anymore. Patient is sitting on toilet yelling that he can do what he wants because he is getting IV antibiotics. Waited for patient to finish going to the bathroom, cleaned all remaining stool from patient's hand and bottom. Walked patient back to the bed. Changed patient's dressing including packing at this time. Patient continues to state, I can use my finger in my butt if I want because I am getting IV antibiotics and I won't cause myself anymore infection. Explained to the patient again that it is not appropriate regardless of any antibiotics he was receiving. Patient will need reinforcement regarding this.
[2019-10-28 16:50] LABS: Glucose Point of Care 109 mg/dL (70-110)
--- NOTE | 2019-10-28 16:56 | PM.PN ---
Subjective Subjective: Interval history: With tremor, severe tardive dyskinesia takes him a while to collect his thoughts and respond to questions, however, he does answer. He reports he does not exactly remember who admitted him. Takes him a few times to come up with the correct year, but does state 2019. Knows he is in [facility]. Denies significant pain. Denies needs at this time. Vitals/I&O/Wt Last Vital Signs Temp 97.6 F 10/28/19 15:15 Pulse 74 10/28/19 15:15 Resp 24 H 10/28/19 15:15 BP 118/62 10/28/19 15:15 Pulse Ox 95 10/28/19 15:15 10/28/19 10/28/19 10/28/19 06:59 14:59 22:59 Intake Total 530 / 2287.5 1110 / 1110 Output Total 200 / 200 700 / 700 Balance 330 / 2087.5 410 / 410 Weight last 48 hrs Weight 88.314 kg Physical Exam Const: COMMON NORMALS: no apparent distress and oriented x3 OTHER: Resting tremor. Tardive dyskinesia. HENMT: COMMON NORMALS: oropharynx normal Neck/C-Spine: COMMON NORMALS: no JVD Resp: COMMON NORMALS: normal respiratory effort and clear to auscultation bilaterally AUSCULTATION: clear to auscultation bilaterally Cardio: COMMON NORMALS: no JVD, regular rhythm, S1 normal heart sound, S2 normal heart sound and no murmurs RHYTHM: regular rhythm HEART SOUNDS: S1 normal and S2 normal GI: COMMON NORMALS: normal to inspection, nondistended, normoactive bowel sounds, soft to palpation and non-tender PALPATION: Yes soft Back/Pelvis: OTHER: Left buttock deep wound, packed with clean surrounding borders no purulent discharge. Extremity: COMMON NORMALS: no joint enlargement and no pedal edema Neuro: COMMON NORMALS: oriented x3 and moves all extremities Skin: COMMON NORMALS: no rashes or lesions noted GENERAL SKIN EXAM: no rashes or lesions noted Data : 10/28/19 05:22 10/28/19 05:22 Micro: Microbiology 10/25/19 14:35 Anaerobic Culture - Preliminary Buttock 10/25/19 14:35 Gram Stain - Final Buttock Wound Culture - Preliminary Escherichia coli Streptococcus Group C 10/26/19 09:10 Gram Stain - Final Buttock Tissue Culture - Preliminary Gram Negative Rods Staphylococcus species 10/26/19 18:20 MRSA Culture - Final Nose A&P Assessment and plan (1) Cellulitis: This appears to be improving. Status post debridement for left buttock, sacral ulcer. Continue antibiotics at this time. Follow-up cultures. Status: Acute Code(s): L03.90 - Cellulitis, unspecified (2) Decubitus ulcer, stage 4 with infection: As above. Pending arrangements for placement to SNF. Status: Acute Code(s): L89.94 - Pressure ulcer of unspecified site, stage 4; L08.9 - Local infection of the skin and subcutaneous tissue, unspecified (3) JED (acute kidney injury): Improved. Status: Acute Code(s): N17.9 - Acute kidney failure, unspecified (4) Type 2 diabetes mellitus: Continue to monitor glucose. Status: Acute Code(s): E11.9 - Type 2 diabetes mellitus without complications (5) Hypertension: Continue to monitor blood pressures. Blood pressures somewhat variable, most of the time on the soft side. Avoid overly tight control. Status: Acute Code(s): I10 - Essential (primary) hypertension (6) Transaminitis: Improving. Status: Acute Code(s): R74.0 - Nonspecific elevation of levels of transaminase and lactic acid dehydrogenase [LDH] (7) Tardive dyskinesia: Continue benztropine. Status: Acute Code(s): G24.01 - Drug induced subacute dyskinesia (8) Parkinsons disease: Status: Acute Code(s): G20 - Parkinson's disease (9) Anxiety and depression: Continue fluoxetine. 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 Continue with oral iron supplementation twice daily. Continue with Protonix 40 mg twice daily for now which is his home dose. Attestations Medical Necessity Statement*: Continue assessment management of cellulitis, left buttock/sacral wound. Pending culture results. Pending disposition arrangements. 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
[2019-10-28 21:16] LABS: Glucose Point of Care 94 mg/dL (70-110)
[2019-10-28] MEDS: trazodone 100 mg Tablet PO (21:18)
--- NOTE | 2019-10-28 21:47 | PC.NURSE ---
Pt yelling at staff, Blood sugar taken by joshua, pt states That is too low, you don't know what you are doing, you don't know anything! Pt then tells this nurse That nurse that was in here doesn't know how to do anything, I asked her to turn off the light and she broke the chain. Pt shown how to work the light and that it is working properly. Pt states I don't know what you are talking about, this is not how you work a light. Pt has been very verbally abusive to staff, refering to them as Bitches. When pt confronted about behavior and staff asked if there is something they can do to help pt states well I...uh...What day is it?, what year? I don't know what year it is, how did I get here, no...I'm not in the hospital, you are lying to me. Pt has no other neurlogical deficits at this time, no facial drooping, no extremity drifting, and PERRL.
[2019-10-29] VITALS (11 sets, daily range): BP systolic 121–138; BP diastolic 72–84; PULSE 61–87; RESP 16–22; TEMP 36.5–37.1; O2SAT 95–99
[2019-10-29] MEDS: piperacillin-tazobactam 3.375 GM in sodium chloride 0.9% (plus) 50 ML IV ×3 (00:46→17:36)
[2019-10-29] MEDS: dextrose 5%-sod chloride 0.9% 1,000 ML 75 ML IV ×2 (00:55→17:40)
--- NOTE | 2019-10-29 01:16 | PC.NURSE ---
Pt resting in bed, continues to be agitated at this time. States I have poop in my butt. When asked to explain pt states There is poop in my sore on my butt and I need to get it out. Upon inspection pt was noted to be sticking fingers into rectum and then placing them into the wound to make it look like there was feces in his wound. When asked about this, pt states I cant poop, it's too soft Offered to assist pt to BSC, and reminded pt about incision care and proper hygeine to promote healing of tissue. Pt refusing to get up to bsc at this time. ABD pad changed, packing still clean at this time. Pt resting in bed at this time. No other needs voiced.
[2019-10-29 06:19] LABS: Glucose Point of Care 96 mg/dL (70-110)
[2019-10-29 07:13] LABS: Basophils # 0.1 10^3/uL (0.0-0.1); Basophils % 0.8 %; Eosinophils # 0.2 10^3/uL (0.0-0.8); Eosinophils % 2.3 %; Hematocrit 36.5 % (42.0-52.0); Hemoglobin 10.9 g/dL (11.7-16.6); Lymphocytes # 2.5 10^3/uL (0.8-4.8); Lymphocytes % 26.2 %; Mean Corpuscular HGB Conc 29.9 g/dL (30.0-36.0); Mean Corpuscular Hemoglobin 28.8 pg (28.0-34.0); Mean Corpuscular Volume 96.6 fL (80-94); Mean Platelet Volume 10.7 fL (7.4-10.4); Monocytes # 0.7 10^3/uL (0.2-0.9); Monocytes % 6.9 %; Neutrophils # 5.9 10^3/uL (1.8-7.7); Neutrophils % 61.8 %; Nucleated Red Blood Cells % 0 %; Platelet Count 517 10^3/cmm (130-400); Red Blood Count 3.78 10^6/uL (4.1-5.3); Red Cell Distribution Width 14.8 % (12.1-15.1); White Blood Count 9.5 10^3/uL (4.0-10.0)
[2019-10-29 08:08] LABS: Alanine Aminotransferase 46 U/L (0-41); Alkaline Phosphatase 112 IU/L (40-130); Anion Gap 14.4 (5-19); Aspartate Amino Transferase 22 U/L (0-40); Blood Urea Nitrogen 3 mg/dL (6-20); Calcium 8.8 mg/dL (8.5-10.5); Carbon Dioxide 21 mmol/L (22-29); Chloride 110 mmol/L (98-107); Creatinine Clr Calc Pharmacy 122.9568; Globulin 3.8 g/dL (1.3-4.6); Glomerular Filtration Rate 101.5 mL/min (90-130); Glucose 84 mg/dL (65-115); Osmolality Calculated 289 mOsm/kg (285-295); Potassium 3.4 mmol/L (3.5-5.1); Sodium 142 mmol/L (136-145); Total Bilirubin 0.3 mg/dL (0.15-1.2); Total Protein 6.8 g/dL (6.6-8.7)
[2019-10-29] MEDS: benztropine 1 mg Tablet PO ×2 (08:09→17:36)
[2019-10-29] MEDS: ferrous sulfate EC 325 mg Tablet PO ×2 (08:09→17:36)
[2019-10-29] MEDS: docusate sodium 100 mg Capsule PO (08:09)
[2019-10-29] MEDS: pantoprazole DR 40 mg Tablet PO ×2 (08:09→17:36)
[2019-10-29] MEDS: fluoxetine 20 mg Capsule PO (08:09)
[2019-10-29] MEDS: topiramate 100 mg Tablet PO ×2 (08:09→17:36)
[2019-10-29] MEDS: bisacodyl 5 mg Tablet 10 MG PO (08:10)
[2019-10-29] MEDS: atorvastatin 40 mg Tablet 20 MG PO (08:10)
[2019-10-29 11:08] LABS: Glucose Point of Care 108 mg/dL (70-110)
--- NOTE | 2019-10-29 12:25 | PC.SOCIAL ---
IMM Updated Page 2 of IMM updated and given to patient. Initialed, dated, and timed and placed back in chart.
[2019-10-29 17:10] LABS: Glucose Point of Care 90 mg/dL (70-110)
--- NOTE | 2019-10-29 17:10 | P.PN_ITS ---
Subjective Subjective: Interval history: No complaints today. Happily eating his lunch. Vitals/I&O/Wt Last Vital Signs Temp 97.9 F 10/29/19 15:13 Pulse 74 10/29/19 15:13 Resp 22 H 10/29/19 15:13 BP 138/74 10/29/19 15:13 Pulse Ox 95 10/29/19 15:13 10/29/19 10/29/19 10/29/19 06:59 14:59 22:59 Intake Total 1050 / 2690 300 / 300 Output Total 0 / 950 800 / 800 Balance 1050 / 1740 -500 / -500 Weight last 48 hrs Weight 87.861 kg Weight 88.252 kg Weight 88.314 kg Physical Exam 2 Const: COMMON NORMALS: no apparent distress and oriented x3 OTHER: Resting tremor. Tardive dyskinesia. HENMT: COMMON NORMALS: oropharynx normal Neck/C-Spine: COMMON NORMALS: no JVD Resp: COMMON NORMALS: normal respiratory effort and clear to auscultation bilaterally AUSCULTATION: clear to auscultation bilaterally Cardio: COMMON NORMALS: no JVD, regular rhythm, S1 normal heart sound, S2 normal heart sound and no murmurs RHYTHM: regular rhythm HEART SOUNDS: S1 normal and S2 normal GI: COMMON NORMALS: normal to inspection, nondistended, normoactive bowel sounds, soft to palpation and non-tender PALPATION: Yes soft Back/Pelvis: OTHER: Left buttock deep wound, packed with clean surrounding borders no purulent discharge. Extremity: COMMON NORMALS: no joint enlargement and no pedal edema Neuro: COMMON NORMALS: oriented x3 and moves all extremities Skin: COMMON NORMALS: no rashes or lesions noted GENERAL SKIN EXAM: no rashes or lesions noted Data : 10/29/19 06:58 10/29/19 06:58 Micro: Microbiology 10/25/19 14:35 Gram Stain - Final Buttock Wound Culture - Preliminary Escherichia coli Streptococcus Group C 10/26/19 09:10 Gram Stain - Final Buttock Tissue Culture - Preliminary Escherichia coli Staphylococcus epidermidis Streptococcus Group C 10/25/19 14:35 Anaerobic Culture - Preliminary Buttock Finegoldia magna A&P Assessment and plan (1) Cellulitis: This appears to be improving. Status post debridement for left buttock, sacral ulcer. Continue antibiotics at this time. Status: Acute Code(s): L03.90 - Cellulitis, unspecified (2) Decubitus ulcer, stage 4 with infection: As above. Cultures growing E. coli, staph epidermidis, strep group C. Currently on Zosyn. Continue Zosyn for now. May switch to Cipro on discharge which should cover all organisms. Pending arrangements for placement to SNF. Status: Acute Code(s): L89.94 - Pressure ulcer of unspecified site, stage 4; L08.9 - Local infection of the skin and subcutaneous tissue, unspecified (3) JED (acute kidney injury): Improved. Status: Acute Code(s): N17.9 - Acute kidney failure, unspecified (4) Type 2 diabetes mellitus: Continue to monitor glucose. Status: Acute Code(s): E11.9 - Type 2 diabetes mellitus without complications (5) Hypertension: Continue to monitor blood pressures. Blood pressures at goal. Status: Acute Code(s): I10 - Essential (primary) hypertension (6) Transaminitis: Improving. Status: Acute Code(s): R74.0 - Nonspecific elevation of levels of transaminase and lactic acid dehydrogenase [LDH] (7) Tardive dyskinesia: Continue benztropine. Status: Acute Code(s): G24.01 - Drug induced subacute dyskinesia (8) Parkinsons disease: Status: Acute Code(s): G20 - Parkinson's disease (9) Anxiety and depression: Continue fluoxetine. 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 Continue with oral iron supplementation twice daily. Continue with Protonix 40 mg twice daily for now which is his home dose. Attestations Medical Necessity Statement*: Continue admission of left buttock wound, cellulitis. Disposition arrangements. 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
[2019-10-29] MEDS: heparin 5,000 unit/mL INJ 1 mL 5000 UNIT SUBCUT (17:36)
[2019-10-29] MEDS: diazePAM 2 mg Tablet PO (17:48)
[2019-10-29] MEDS: trazodone 100 mg Tablet PO (20:54)
[2019-10-29 21:06] LABS: Glucose Point of Care 80 mg/dL (70-110)
[2019-10-30] MEDS: piperacillin-tazobactam 3.375 GM in sodium chloride 0.9% (plus) 50 ML IV ×2 (01:06→08:30)
[2019-10-30 04:00] VITALS: BP 121/74; PULSE 72; RESP 22; TEMP 36.5; O2SAT 98
[2019-10-30 05:37] LABS: Basophils # 0.1 10^3/uL (0.0-0.1); Basophils % 0.7 %; Eosinophils # 0.3 10^3/uL (0.0-0.8); Eosinophils % 2.8 %; Hematocrit 32.3 % (42.0-52.0); Hemoglobin 10.2 g/dL (11.7-16.6); Lymphocytes # 2.1 10^3/uL (0.8-4.8); Lymphocytes % 23.4 %; Mean Corpuscular HGB Conc 31.6 g/dL (30.0-36.0); Mean Corpuscular Hemoglobin 28.5 pg (28.0-34.0); Mean Corpuscular Volume 90.2 fL (80-94); Mean Platelet Volume 10.6 fL (7.4-10.4); Monocytes # 0.5 10^3/uL (0.2-0.9); Monocytes % 5.8 %; Neutrophils % 65.5 %; Nucleated Red Blood Cells % 0 %; Platelet Count 576 10^3/cmm (130-400); Red Blood Count 3.58 10^6/uL (4.1-5.3); Red Cell Distribution Width 14.8 % (12.1-15.1); White Blood Count 9.1 10^3/uL (4.0-10.0)
[2019-10-30 06:17] LABS: Alanine Aminotransferase 36 U/L (0-41); Albumin Level 2.9 g/dL (3.5-5.2); Alkaline Phosphatase 96 IU/L (40-130); Anion Gap 15.9 (5-19); Aspartate Amino Transferase 18 U/L (0-40); Blood Urea Nitrogen 4 mg/dL (6-20); Calcium 9.1 mg/dL (8.5-10.5); Carbon Dioxide 20 mmol/L (22-29); Chloride 113 mmol/L (98-107); Globulin 3.5 g/dL (1.3-4.6); Glomerular Filtration Rate 88.6 mL/min (90-130); Glucose 72 mg/dL (65-115); Osmolality Calculated 296 mOsm/kg (285-295); Sodium 146 mmol/L (136-145); Total Bilirubin 0.3 mg/dL (0.15-1.2); Total Protein 6.4 g/dL (6.6-8.7)
[2019-10-30 06:21] LABS: Potassium 2.9 mmol/L (3.5-5.1)
[2019-10-30 06:47] LABS: Glucose Point of Care 73 mg/dL (70-110)
[2019-10-30] MEDS: potassium chloride premix 40 MEQ/100 ML PREMIX 25 MEQ IV (06:51)
[2019-10-30 08:00] VITALS: BP 118/63; PULSE 82; RESP 20; TEMP 36.6; O2SAT 98
[2019-10-30] MEDS: pantoprazole DR 40 mg Tablet PO (08:26)
[2019-10-30] MEDS: benztropine 1 mg Tablet PO (08:26)
[2019-10-30] MEDS: atorvastatin 40 mg Tablet 20 MG PO (08:26)
[2019-10-30] MEDS: ferrous sulfate EC 325 mg Tablet PO (08:27)
[2019-10-30] MEDS: fluoxetine 20 mg Capsule PO (08:27)
[2019-10-30] MEDS: topiramate 100 mg Tablet PO (08:27)
[2019-10-30 10:55] VITALS: BP 118/63; PULSE 82; RESP 20; TEMP 36.6; O2SAT 98
[2019-10-30 11:00] VITALS: BP 129/78; PULSE 87; RESP 18; TEMP 36.4; O2SAT 98
--- NOTE | 2019-10-30 11:27 | PM.DCS ---
Discharge Providers Date of Admission: 10/24/19 21:08 Date of Discharge: October 30, 2019 Attending Provider at Admission: Nancy Valle MD Attending Provider at Discharge: Kranthi Obrien Diagnoses at Discharge Discharge Diagnosis (1) Cellulitis: Status: Acute (2) Decubitus ulcer, stage 4 with infection: Status: Acute (3) JED (acute kidney injury): Status: Acute (4) Type 2 diabetes mellitus: Status: Acute (5) Hypertension: Status: Acute (6) Transaminitis: Status: Acute (7) Tardive dyskinesia: Status: Acute (8) Parkinsons disease: Status: Acute (9) Anxiety and depression: Status: Acute (10) Hyperlipidemia: Status: Acute Reason for Visit Reason for Visit: Reason For Visit: DECUB BUTTOCKS Hospital Course Hospital Course: 54-year-old gentleman with history of Parkinson's disease, chronic tremor, hypertension, HLD, DM 2, GERD, history of depression, anxiety, schizophrenia, severe tardive dyskinesia was admitted due to decubitus ulcers noted on his left buttock. At home he lives by himself with his mother, however, she is elderly, and it appears he has not been taking adequate care of himself. Poor living conditions were described by home health overseeing her mother. On exam noted to have decubitus ulcers, cellulitis, for which received treatment with Zosyn and vancomycin. This was the escalated to Zosyn alone. Subsequently growing E. coli, coag negative staph and group C strep all susceptible to ciprofloxacin, and will complete oral therapy with this antibiotic. Continue wound care and dressing changes as recommended by surgery. He should follow-up with wound care clinic later this week. Reposition frequently. Would benefit from follow-up with neurology. Due to acute kidney injury losartan is discontinued. Avoid NSAIDs. Bricelyn potassium intake. Please recheck potassium level in 3 days. Physical Exam Const: COMMON NORMALS: no apparent distress and oriented x3 OTHER: Resting tremor. Tardive dyskinesia. HENMT: COMMON NORMALS: oropharynx normal Neck/C-Spine: COMMON NORMALS: no JVD Resp: COMMON NORMALS: normal respiratory effort and clear to auscultation bilaterally AUSCULTATION: clear to auscultation bilaterally Cardio: COMMON NORMALS: no JVD, regular rhythm, S1 normal heart sound, S2 normal heart sound and no murmurs RHYTHM: regular rhythm HEART SOUNDS: S1 normal and S2 normal GI: COMMON NORMALS: normal to inspection, nondistended, normoactive bowel sounds, soft to palpation and non-tender PALPATION: Yes soft Back/Pelvis: OTHER: Left buttock deep wound is clean, packed with clean surrounding borders no discharge. Extremity: COMMON NORMALS: no joint enlargement and no pedal edema Neuro: COMMON NORMALS: oriented x3 and moves all extremities Skin: COMMON NORMALS: no rashes or lesions noted GENERAL SKIN EXAM: no rashes or lesions noted Discharge Data Data Completed and Pending: Completed Studies During Hospitalization Category Date Time Status CT abdomen wo con [id number] Urgent Cat Scan 10/24/19 21:[address] pelvis w con* [id number] Urgent Cat Scan 10/24/19 18:34 Completed XR chest 1V tracey ble [id number] Urgent Exams 10/24/19 18:33 Completed US gall bladder 7 6705 Urgent Ultrasound 10/24/19 19:57 Completed Pending at discharge Category Date Time Status Anaerobic Culture Stat Lab 10/24/19 14:00 Results Complete Blood Co unt w/Auto AM LABS Lab 10/31/19 04:00 Ordered Comprehensive Met abolic Panel AM LA BS Lab 10/31/19 04:00 Ordered Comprehensive Met abolic Panel AM LA BS Lab 11/01/19 04:00 Ordered Tissue Culture an d Gram Stain Stat Lab 10/26/19 09:10 Results Wound Culture and Gram Stain Stat Lab 10/25/19 14:35 Results Labs from last 24 hours 10/30/19 10/30/19 10/30/19 06:39 05:20 05:20 WBC 9.1 RBC 3.58 L Hgb 10.2 L Hct 32.3 L MCV 90.2 D MCH 28.5 MCHC 31.6 D RDW 14.8 Plt Count 576 H MPV 10.6 H Neut % (Auto) 65.5 Lymph % (Auto) 23.4 [place] % (Auto) 5.8 Eos % (Auto) 2.8 Baso % (Auto) 0.7 Neut # (Auto) 6.0 Lymph # (Auto) 2.1 [place] # (Auto) 0.5 Eos # (Auto) 0.3 Baso # (Auto) 0.1 Nucleated RBC % (a uto) 0 Nucleated RBCs # 0.0 Sodium 146 H Potassium 2.9 L Chloride 113 H Carbon Dioxide 20 L Anion Gap 15.9 BUN 4 L Creatinine 0.9 GFR Calculation 88.6 L Glucose 72 POC Glucose 73 Calculated Osmolal ity 296 H Calcium 9.1 Total Bilirubin 0.3 AST 18 ALT 36 Alkaline Phosphata se 96 Total Protein 6.4 L Albumin 2.9 L Globulin 3.5 10/29/19 10/29/19 20:50 17:06 WBC RBC Hgb Hct MCV MCH MCHC RDW Plt Count MPV Neut % (Auto) Lymph % (Auto) [place] % (Auto) Eos % (Auto) Baso % (Auto) Neut # (Auto) Lymph # (Auto) [place] # (Auto) Eos # (Auto) Baso # (Auto) Nucleated RBC % (a uto) Nucleated RBCs # Sodium Potassium Chloride Carbon Dioxide Anion Gap BUN Creatinine GFR Calculation Glucose POC Glucose 80 90 Calculated Osmolal ity Calcium Total Bilirubin AST ALT Alkaline Phosphata se Total Protein Albumin Globulin Vitals: Last Vital Signs Temp 97.9 F 10/30/19 10:55 Pulse 82 10/30/19 10:55 Resp 20 H 10/30/19 10:55 BP 118/63 10/30/19 10:55 Pulse Ox 98 10/30/19 10:55 Discharge Plan Discharge Patient Disposition: Xfer SNF Condition: Stable Prescriptions: New ciprofloxacin HCl 500 mg tablet 500 mg PO BID 10 Days Qty: 20 RF: 0 potassium chloride 10 mEq tablet extended release 10 meq PO DAILY Qty: 5 RF: 0 ferrous sulfate 325 mg (65 mg iron) Tablet,Delayed Release (Dr/Ec) 325 mg PO EVERY OTHER DAY Qty: 15 RF: 0 Continued metformin 500 mg tablet 500 mg PO DAILY RF: 0 potassium chloride 20 mEq tablet,ER particles/crystals 20 meq PO BID RF: 0 trazodone 100 mg tablet 100 mg PO BEDTIME RF: 0 pantoprazole 40 mg tablet,delayed release (DR/EC) 40 mg PO BID RF: 0 simvastatin 20 mg tablet 20 mg PO DAILY RF: 0 benztropine 1 mg tablet 1 mg PO BID RF: 0 albuterol sulfate [Ventolin HFA] 90 mcg/actuation HFA aerosol inhaler 2 puff INHALATION QID PRN (Reason: Shortness Of Breath) RF: 0 ondansetron 4 mg tablet,disintegrating 4 mg PO Q6H PRN (Reason: Nausea) RF: 0 topiramate 100 mg tablet 100 mg PO BID RF: 0 fluoxetine 20 mg capsule 20 mg PO DAILY RF: 0 diazepam 2 mg Tablet 2 mg PO BID PRN (Reason: anxiety) 30 Days Qty: 30 RF: 0 Discontinued amlodipine 2.5 mg tablet 2.5 mg PO DAILY RF: 0 losartan 25 mg tablet 25 mg PO DAILY RF: 0 Discharge Orders: Discharge Order (Routine); Ordered 10/30/19 Ordered By: Kranthi Obrien Other Ambulatory Orders: Basic Metabolic Panel (Routine) Timeframe: 3 Days Facility: [facility] - Location: Lab - Main Lab Ordered By: Kranthi Obrien Referrals: Wound Care [Provider Group] - 4-7 days (L buttock wound) [facility] [Outside] Rashawn Chisholm [Family Provider] - 11/03/19 2:40 am () Discharge Diet: Cardiac, Diabetic and Soft Mechanical Discharge Activity: Increase activity as tolerated and As per PT/OT instructions Activity Restrictions/Additional Instructions: Wound care per surgical recommendations. Please make sure he follows up with wound care clinic this week. Avoid NSAIDs. Losartan at this time is discontinued due to acute kidney injury on presentation. Reposition frequently. Continue PT, OT, ST. Please follow-up his potassium level in 3 days. 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
[2019-10-30 11:51] LABS: Glucose Point of Care 120 mg/dL (70-110)
== END 2019-10-30 15:20 | disposition skilled nursing facility (03) | DRG 853 ==
LOC: ER 20:59 → MEDSURG 21:32
PROVIDERS: Family Medicine; Student in an Organized Health Care Education/Training Program; Surgery; Admitting Provider Student in an Organized Health Care Education/Training Program; Emergency Provider Physician Assistant; Family Provider Family Medicine; Visit Provider Internal Medicine
PROC: 0JBM0ZZ Excision of Left Upper Leg Subcutaneous Tissue and Fascia, Open Approach (ICD-10-PCS; principal; 2019-10-26 08:30)
DX: A41.9 Sepsis, unspecified organism (principal); L89.324 Pressure ulcer of left buttock, stage 4; N17.9 Acute kidney failure, unspecified; C22.0 Liver cell carcinoma; L03.116 Cellulitis of left lower limb; E11.9 Type 2 diabetes mellitus without complications; I10 Essential (primary) hypertension; R74.0 Nonspecific elevation of levels of transaminase and lactic acid dehydrogenase [LDH]; G24.01 Drug induced subacute dyskinesia; G20 Parkinson's disease; F41.9 Anxiety disorder, unspecified; F32.9 Major depressive disorder, single episode, unspecified; E78.5 Hyperlipidemia, unspecified; J44.9 Chronic obstructive pulmonary disease, unspecified; K21.9 Gastro-esophageal reflux disease without esophagitis; D64.9 Anemia, unspecified; B96.20 Unspecified Escherichia coli [E. coli] as the cause of diseases classified elsewhere; B95.7 Other staphylococcus as the cause of diseases classified elsewhere; B95.4 Other streptococcus as the cause of diseases classified elsewhere; Z87.891 Personal history of nicotine dependence; Z79.2 Long term (current) use of antibiotics; Z79.84 Long term (current) use of oral hypoglycemic drugs; Z79.83 Long term (current) use of bisphosphonates; Z79.52 Long term (current) use of systemic steroids; Z79.899 Other long term (current) drug therapy
CPT/HCPCS: 12345; 36415; 36416; 71045; 72193; 74150; 76705; 80048; 80053; 80074; 80202; 80306; 81003; 82962; 83036; 83540; 83550; 83605; 83690; 84145; 84443; 85025; 86140; 87040; 87070; 87075; 87077; 87176; 87186; 87205; 87641; 93005; 96372; 97165; 99283; A6446; A9270; J1644; J2250; J2543; J2704; J3010; J3370; J3480; J7030; J7050; Q9967

== ENCOUNTER 2020-03-20 07:17 | Emergency (ER) | payer MEDICARE, MEDICAID, SELFPAY ==
[2020-03-20 07:21] VITALS: BP 149/74; PULSE 114; RESP 20; TEMP 37.4; O2SAT 95; BMI 24.4
--- NOTE | 2020-03-20 07:35 | CT_ITS ---
WS: [id number] CT ABDOMEN PELVIS TECHNIQUE: Contrast-enhanced CT of the abdomen and pelvis with coronal and sagittal reformatted image s. CLINICAL INFORMATION: pain COMPARISON: October 24, 2019 DLP: 456.[address] scans at [facility] use at least one of these dose optimization techniques: automat ed exposure control; mA and/or kV adjustment per patient size (includes targeted exams where dose is matched to clinical indication); or iterative reconstruction. FINDINGS: Liver is normal. Normal gallbladder. Splenic granulomas. Normal GE junction. Adrenal glands are krishna l. Normal renal parenchymal enhancement. No hydronephrosis. Lung bases are well aerated. Normal caliber abdominal aorta. Fecal retention with mild to moderate constipation. No evidence of high-grade small or large bowel ob struction. Fatty atrophy of the pancreas. Normal caliber abdominal aorta. No free fluid in the abdome n or pelvis. Normal appendix in the right lower quadrant. CT/CT abdomen pelvis w con* [id number] IMPRESSION: 1. Normal liver and gallbladder. 2. Normal caliber abdominal aorta. 3. Fecal retention with mild to moderate constipation. 4. No evidence of high-grade small or large bowel obstruction. 5. No other significant findings.
--- NOTE | 2020-03-20 07:35 | ECG_ITS ---
[facility] Test Date: 2020-03-20 Pat Name: Kolby Pickett Department: Room: Gender: Male R D Manager: : 1965 Requested By: Damon Minor Order Number: [id number] Loi MD: Kristel Jimenez M.D. Measurements Intervals [place] Rate: 116 P: 58 [place]: 128 QRS: 58 QRSD: 100 T: 57 QT: 328 QTc: 456 Interpretive Statements SINUS TACHYCARDIA NONSPECIFIC T-WAVE ABNORMALITY ABNORMAL RHYTHM ECG Compared to ECG 10/24/2019 19:35:39 Sinus rhythm no longer present T-wave abnormality still present Electronically Signed On 03-20-2020 21:22:45 CDT by Kristel Jimenez M.D. [id number]
--- NOTE | 2020-03-20 07:37 | ED_ITS ---
HPI - Abdominal Pain General: Chief Complaint: Abdominal Pain Stated Complaint: abd pain Time Seen by Provider: 03/20/20 07:18 History of Present Illness: HPI narrative: Patient arrived via ambulance from [facility] with complaints of abdominal pain since yesterday. Patient type II diabetic has history of Parkinson's disease. Also has complaint of leg numbness is gone on for the last couple years patient does ambulate. Denies any vomiting says his pain is upper epigastric area MD elicited complaint: abdominal pain Onset (ago): day(s) Pain Consistency: intermittent Location: Epigastric Severity: mild Quality: aching Radiation: epigastric Exacerbating factors: nothing Relieving factors: nothing Associated Symptoms: Reports no associated symptoms; Denies chills, fever(s), nausea and vomiting Review of Systems Const: Denies: fever(s), chills or body aches Eyes: Denies: change in vision or blurry vision ENMT: Denies: throat pain or nasal congestion Card: Denies: chest pain or dyspnea on exertion Resp: Denies: dyspnea, productive cough or non-productive cough GI: Reports: abdominal pain; Denies: nausea or vomiting : Denies: difficulty urinating Musc: Denies: extremity pain Skin/Breast: Denies: rash Neuro: Reports: other (Says legs feel numb at times been going on for years); Denies: headache(s) Psych: Denies: anxiety or depression Scott/Lymph: Denies: easy bruising [facility] ED PFSH: Medical History (Updated 10/31/19 @ 00:00 by ) Anxiety and depression GERD (gastroesophageal reflux disease) Hyperlipidemia Parkinsons disease Family History Other Diabetes Social History Smoking and tobacco status: former smoker Alcohol intake: never Physical Exam Const: COMMON NORMALS: no acute distress, average body habitus and patient oriented x3 HENMT: COMMON NORMALS: normocephalic HEAD & SCALP: normal to inspection and normocephalic FACE & SINUS: normal facial exam Eye: COMMON NORMALS: conjunctivae normal GENERAL EYE: appearance normal, both eyes and all related structures CONJUNCTIVA: Yes conjunctivae normal Neck/C-Spine: COMMON NORMALS: no JVD Chest: COMMONS NORMALS: normal inspection of the chest Resp: COMMON NORMALS: normal respiratory effort and clear to auscultation bilaterally AUSCULTATION: clear to auscultation bilaterally Cardio: COMMON NORMALS: no JVD and regular rhythm RATE: tachycardic RHYTHM: regular rhythm GI: COMMON NORMALS: Normal to inspection, nondistended, normoactive bowel sounds present AUSCULTATION: Yes normoactive bowel sounds PALPATION: Yes Tenderness to palpation present (GI) (Epigastric) Details: other : TESTES: Yes other (Patient has a depends on no testicular swelling) Extremity: COMMON NORMALS: normal to inspection and full ROM Neuro: COMMON NORMALS: patient oriented x3 Skin: OTHER: Some tenting of the skin Course Vital Signs: Vital signs: Vital Signs Temperature 99.4 F 03/20/20 07:21 Pulse Rate 114 H 03/20/20 07:21 Respiratory Rate 20 H 03/20/20 07:21 Blood Pressure 149/74 03/20/20 07:21 Pulse Oximetry 95 03/20/20 07:21 Discharge Plan Discharge Prescriptions: No Action metformin 500 mg tablet 500 mg PO DAILY RF: 0 potassium chloride 20 mEq tablet,ER particles/crystals 20 meq PO BID RF: 0 trazodone 100 mg tablet 100 mg PO BEDTIME RF: 0 pantoprazole 40 mg tablet,delayed release (DR/EC) 40 mg PO BID RF: 0 simvastatin 20 mg tablet 20 mg PO DAILY RF: 0 benztropine 1 mg tablet 1 mg PO BID RF: 0 albuterol sulfate [Ventolin HFA] 90 mcg/actuation HFA aerosol inhaler 2 puff INHALATION QID PRN (Reason: Shortness Of Breath) RF: 0 ondansetron 4 mg tablet,disintegrating 4 mg PO Q6H PRN (Reason: Nausea) RF: 0 topiramate 100 mg tablet 100 mg PO BID RF: 0 fluoxetine 20 mg capsule 20 mg PO DAILY RF: 0 ferrous sulfate 325 mg (65 mg iron) Tablet,Delayed Release (Dr/Ec) 325 mg PO EVERY OTHER DAY Qty: 15 RF: 0 potassium chloride 10 mEq tablet extended release 10 meq PO DAILY Qty: 5 RF: 0 Coding Level of Care Code ED Service 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
[2020-03-20] MEDS: sodium chloride 0.9% 1,000 ML 999 ML IV (07:47)
[2020-03-20 07:50] LABS: Basophils # 0.1 10^3/uL (0.0-0.1); Basophils % 0.5 %; Eosinophils # 0.2 10^3/uL (0.0-0.8); Eosinophils % 1.8 %; Hematocrit 39.7 % (42.0-52.0); Hemoglobin 12.9 g/dL (11.7-16.6); Lymphocytes # 1.9 10^3/uL (0.8-4.8); Lymphocytes % 19.6 %; Mean Corpuscular HGB Conc 32.5 g/dL (30.0-36.0); Mean Corpuscular Hemoglobin 27.9 pg (28.0-34.0); Mean Corpuscular Volume 85.9 fL (80-94); Mean Platelet Volume 11.3 fL (7.4-10.4); Monocytes # 0.6 10^3/uL (0.2-0.9); Neutrophils # 6.93 10^3/uL (1.8-7.7); Neutrophils % 71.9 %; Nucleated Red Blood Cells % 0 %; Platelet Count 406 10^3/cmm (130-400); Red Blood Count 4.62 10^6/uL (4.1-5.3); Red Cell Distribution Width 15.1 % (12.1-15.1); White Blood Count 9.6 10^3/uL (4.0-10.0)
[2020-03-20 07:58] LABS: Alanine Aminotransferase 12 U/L (0-41); Albumin Level 4.4 g/dL (3.5-5.2); Alkaline Phosphatase 89 IU/L (40-130); Anion Gap 17.4 (5-19); Aspartate Amino Transferase 15 U/L (0-40); Blood Urea Nitrogen 11 mg/dL (6-20); Calcium 9.4 mg/dL (8.5-10.5); Carbon Dioxide 24 mmol/L (22-29); Chloride 103 mmol/L (98-107); Globulin 3.4 g/dL (1.3-4.6); Glomerular Filtration Rate 78.5 mL/min (90-130); Glucose 75 mg/dL (65-115); Lipase 20 U/L (13-60); Osmolality Calculated 285 mOsm/kg (285-295); Potassium 4.4 mmol/L (3.5-5.1); Sodium 140 mmol/L (136-145); Total Bilirubin 0.3 mg/dL (0.15-1.2); Total Protein 7.8 g/dL (6.6-8.7)
[2020-03-20] MEDS: iohexol 300 mg/mL 100 mL Btl IV (08:20)
[2020-03-20] MEDS: lidocaine 2% viscous 15 ML, aluminum-mag hydrox-simethicon 30 ML, sucralfate oral liq 1 GM PO (08:55)
[2020-03-20 08:58] VITALS: BP 136/73; PULSE 129; RESP 16; O2SAT 96
[2020-03-20 09:17] LABS: Add Urine Microscopic? NO
[2020-03-20 09:24] LABS: Bilirubin Urine Neg (NEGATIVE); Blood Urine Neg (Negative); Glucose Urine UA Norm (Normal); Ketones Urine Negative (Negative); Leukocyte Esterase Urine Negative (Negative); Nitrate Urine Negative (Negative); Protein Urine Neg (Negative); Specific Gravity, Urine 1.005 (1.005-1.030); Sulfosalicylic Acid Urine Negative (Negative); Urine Appearance Clear (CLEAR); Urine Color Colorless (Yellow); Urobilinogen Urine Norm (Negative)
[2020-03-20 10:36] VITALS: BP 141/71; PULSE 116; RESP 20; O2SAT 96
[2020-03-20 13:56] VITALS: BP 158/84; PULSE 101; RESP 20; O2SAT 97
--- NOTE | 2020-03-20 13:56 | PC.NURSE ---
Clean and changed , repositioned pt and gave water
[2020-03-20 15:14] VITALS: BP 138/82; PULSE 84; RESP 18; TEMP 36.6; O2SAT 97
== END 2020-03-20 15:20 ==
PROVIDERS: Emergency Provider Nurse Practitioner Family
DX: R10.9 Unspecified abdominal pain (principal); Z79.84 Long term (current) use of oral hypoglycemic drugs; E78.5 Hyperlipidemia, unspecified; G20 Parkinson's disease; Z87.891 Personal history of nicotine dependence
CPT/HCPCS: 12345; 74177; 80053; 81003; 83690; 85025; 93005; 96360; 99283; 99284; J7030; Q9967

== ENCOUNTER → 2020-04-04 07:44 | Outpatient (BNVA) | payer MEDICARE, MEDICAID, SELFPAY | PROVIDERS: Visit Provider Psychiatry & Neurology Psychiatry | DX: F20.9 Schizophrenia, unspecified (principal); F41.1 Generalized anxiety disorder | CPT/HCPCS: 99215 ==

== ENCOUNTER 2020-04-15 17:32 | Inpatient (IN) | payer MEDICARE, MEDICAID, SELFPAY ==
[2020-04-15 17:34] VITALS: BP 129/72; PULSE 76; RESP 16; TEMP 37.1; O2SAT 99; BMI 20.9
[2020-04-15 18:02] VITALS: RESP 16
[2020-04-15 18:08] LABS: Add Urine Microscopic? NO
--- NOTE | 2020-04-15 18:09 | W.ED.PSYCH ---
HPI - Psych General: Chief Complaint: Psychiatric Symptoms Stated Complaint: psych eval Time Seen by Provider: 04/15/20 17:42 History of Present Illness: HPI Narrative: Patient arrived from [place] in intermediate with police escort because nursing staff that he came agitated with him he had a door and they want him psychiatrically evaluated patient denies any SI or HI symptoms said he just wants to be left alone sometimes and then always leave him alone. has been taking his medication complaint: other (Agitation) Onset (ago): hour(s) Duration: changing over time History of same: Yes Relieving factors: none Exacerbating factors: none Associated psychiatric symptoms: other (Schizophrenic bipolar) Associated symptoms: Reports no associated symptoms; Deny depression Treatments prior to arrival: none Review of Systems Const: Denies: fever(s), chills or body aches Eyes: Denies: change in vision or blurry vision ENMT: Denies: throat pain or nasal congestion Card: Denies: chest pain or dyspnea on exertion Resp: Denies: dyspnea, productive cough or non-productive cough GI: Denies: abdominal pain, nausea or vomiting : Denies: difficulty urinating Musc: Denies: extremity pain Skin/Breast: Denies: rash Neuro: Denies: headache(s) Psych: Reports: mood swings and other (Agitation); Denies: anxiety or depression Scott/Lymph: Denies: easy bruising [facility] ED PFSH: Medical History (Updated 04/15/20 @ 19:15 by ROD Singh) Anxiety and depression RACHEAL (generalized anxiety disorder) GERD (gastroesophageal reflux disease) Hyperlipidemia Parkinsons disease Schizophrenia Family History Other Diabetes Social History Smoking and tobacco status: former smoker Alcohol intake: never Physical Exam Const: COMMON NORMALS: no acute distress, average body habitus and patient oriented x3 HENMT: COMMON NORMALS: normocephalic HEAD & SCALP: normal to inspection and normocephalic FACE & SINUS: normal facial exam Eye: COMMON NORMALS: conjunctivae normal GENERAL EYE: appearance normal, both eyes and all related structures CONJUNCTIVA: Yes conjunctivae normal Neck/C-Spine: COMMON NORMALS: no JVD Chest: COMMONS NORMALS: normal inspection of the chest Resp: COMMON NORMALS: normal respiratory effort and clear to auscultation bilaterally AUSCULTATION: clear to auscultation bilaterally Cardio: COMMON NORMALS: no JVD, regular rate and regular rhythm RATE: regular rate RHYTHM: regular rhythm GI: COMMON NORMALS: Normal to inspection, nondistended, normoactive bowel sounds present Extremity: COMMON NORMALS: normal to inspection and full ROM Neuro: COMMON NORMALS: patient oriented x3 Psych: COMMON NORMALS: mental status grossly normal, Normal thought process present and speech normal APPEARANCE: Yes grossly normal ATTITUDE: Yes calm and Yes engaged ACTIVITY/MOTOR BEHAVIOR: Yes appropriate eye contact SPEECH: Yes normal speech MOOD & AFFECT: Yes Flat affect present THOUGHT PROCESS: Normal thought process present THOUGHT CONTENT: Yes Normal thought content present ATTENTION/CONCENTRATION: Yes attention grossly intact INSIGHT: Good insight present (Psych) JUDGEMENT: Good judgement present (Psych) MDM - Psych MDM Narrative: Medical decision making narrative: Dr. David came to the ER and evaluated the patient performed a mental health evaluation and said patient is fine to go back to [facility] patient has been appropriate here has diagnosis chronic schizophrenia with agitation you recommend that intermediate doctor put patient on a as needed sedative as needed for times of agitation intermediate doctor contacted Dr. David and Dr. David called back and said go ahead and admit patient Lab Data: Labs: Lab Results 04/15/20 04/15/20 04/15/20 Range/Units 17:48 17:48 18:05 WBC 13.6 H (4.0-10.0) 10^3/ uL RBC 4.65 (4.1-5.3) 10^6/u L Hgb 13.4 (11.7-16.6) g/dL Hct 42.1 (42.0-52.0) % MCV 90.5 (80-94) fL MCH 28.8 (28.0-34.0) pg MCHC 31.8 (30.0-36.0) g/dL RDW 15.9 H (12.1-15.1) % Plt Count 391 (130-400) 10^3/c mm MPV 10.6 H (7.4-10.4) fL Neut % (Auto) 77.6 % Lymph % (Auto) 14.3 % [place] % (Auto) 6.0 % Eos % (Auto) 1.4 % Baso % (Auto) 0.4 % Neut # (Auto) 10.53 H (1.8-7.7) 10^3/u L Lymph # (Auto) 1.9 (0.8-4.8) 10^3/u L [place] # (Auto) 0.8 (0.2-0.9) 10^3/u L Eos # (Auto) 0.2 (0.0-0.8) 10^3/u L Baso # (Auto) 0.1 (0.0-0.1) 10^3/u L Nucleated RBC % (a uto) 0 % Nucleated RBCs # 0.0 /100WBC Sodium (136-145) mmol/L Potassium (3.5-5.1) mmol/L Chloride (98-107) mmol/L Carbon Dioxide (22-29) mmol/L Anion Gap (5-19) BUN (6-20) mg/dL Creatinine (0.7-1.2) mg/dL GFR Calculation (90-130) mL/min Glucose (65-115) mg/dL Calculated Osmolal ity (285-295) mOsm/k g Calcium (8.5-10.5) mg/dL Total Bilirubin (0.15-1.2) mg/dL AST (0-40) U/L ALT (0-41) U/L Alkaline Phosphata se (40-130) IU/L Total Protein (6.6-8.7) g/dL Albumin (3.5-5.2) g/dL Globulin (1.3-4.6) g/dL Urine Color Straw (Yellow) Urine Appearance Clear (CLEAR) Urine pH 5.0 (5-7) Ur Specific Gravit y 1.010 (1.005-1.030) Urine Protein Neg (Negative) Urine Glucose (UA) Norm (Normal) Urine Ketones Negative (Negative) Urine Blood Neg (Negative) Urine Nitrate Negative (Negative) Urine Bilirubin Neg (NEGATIVE) Urine Urobilinogen Norm (Negative) mg/dL Ur Leukocyte Shwetha ase Negative (Negative) Salicylates (3-10) mg/dL Urine Opiates Scre en Negative (Negative) ng/mL Acetaminophen (10-30) ug/mL Ur Barbiturates Sc reen Negative (Negative) ng/mL Ur Phencyclidine S crn Negative (Negative) ng/mL Ur Amphetamines Sc reen Negative (Negative) ng/mL U Benzodiazepines Scrn Positive H (Negative) ng/mL Urine Cocaine Scre en Negative (Negative) ng/mL U Marijuana (THC) Screen Negative (Negative) ng/mL Ethyl Alcohol (0-10) mg/dL 04/15/20 Range/Units 18:05 WBC (4.0-10.0) 10^3/ uL RBC (4.1-5.3) 10^6/u L Hgb (11.7-16.6) g/dL Hct (42.0-52.0) % MCV (80-94) fL MCH (28.0-34.0) pg MCHC (30.0-36.0) g/dL RDW (12.1-15.1) % Plt Count (130-400) 10^3/c mm MPV (7.4-10.4) fL Neut % (Auto) % Lymph % (Auto) % [place] % (Auto) % Eos % (Auto) % Baso % (Auto) % Neut # (Auto) (1.8-7.7) 10^3/u L Lymph # (Auto) (0.8-4.8) 10^3/u L [place] # (Auto) (0.2-0.9) 10^3/u L Eos # (Auto) (0.0-0.8) 10^3/u L Baso # (Auto) (0.0-0.1) 10^3/u L Nucleated RBC % (a uto) % Nucleated RBCs # /100WBC Sodium 140 (136-145) mmol/L Potassium 4.3 (3.5-5.1) mmol/L Chloride 105 (98-107) mmol/L Carbon Dioxide 26 (22-29) mmol/L Anion Gap 13.3 (5-19) BUN 21 H (6-20) mg/dL Creatinine 1.0 (0.7-1.2) mg/dL GFR Calculation 78.2 L (90-130) mL/min Glucose 102 (65-115) mg/dL Calculated Osmolal ity 287 (285-295) mOsm/k g Calcium 9.0 (8.5-10.5) mg/dL Total Bilirubin 0.3 (0.15-1.2) mg/dL AST 10 (0-40) U/L ALT 8 (0-41) U/L Alkaline Phosphata se 102 (40-130) IU/L Total Protein 7.9 (6.6-8.7) g/dL Albumin 4.5 (3.5-5.2) g/dL Globulin 3.4 (1.3-4.6) g/dL Urine Color (Yellow) Urine Appearance (CLEAR) Urine pH (5-7) Ur Specific Gravit y (1.005-1.030) Urine Protein (Negative) Urine Glucose (UA) (Normal) Urine Ketones (Negative) Urine Blood (Negative) Urine Nitrate (Negative) Urine Bilirubin (NEGATIVE) Urine Urobilinogen (Negative) mg/dL Ur Leukocyte Shwetha ase (Negative) Salicylates < 0.3 L (3-10) mg/dL Urine Opiates Scre en (Negative) ng/mL Acetaminophen < 5.0 L (10-30) ug/mL Ur Barbiturates Sc reen (Negative) ng/mL Ur Phencyclidine S crn (Negative) ng/mL Ur Amphetamines Sc reen (Negative) ng/mL U Benzodiazepines Scrn (Negative) ng/mL Urine Cocaine Scre en (Negative) ng/mL U Marijuana (THC) Screen (Negative) ng/mL Ethyl Alcohol < 10 (0-10) mg/dL Discharge Plan Discharge Patient Disposition: Admitted As Inpatient Admit Provider: Frankie David Clinical Impression: Parkinsons disease, Chronic schizophrenia Condition: Stable Patient Instructions: Schizoaffective Disorder (ED) Additional Instructions: Patient was evaluated in the ER seen by Dr. David psychiatrist advised that patient be sent back to the [facility] and talk to of the patient about possibility of put on a as needed sedative when needed. 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
[2020-04-15 18:10] LABS: Bilirubin Urine Neg (NEGATIVE); Blood Urine Neg (Negative); Glucose Urine UA Norm (Normal); Ketones Urine Negative (Negative); Leukocyte Esterase Urine Negative (Negative); Nitrate Urine Negative (Negative); Protein Urine Neg (Negative); Urine Appearance Clear (CLEAR); Urine Color Straw (Yellow); Urobilinogen Urine Norm (Negative)
[2020-04-15 18:13] LABS: Basophils # 0.1 10^3/uL (0.0-0.1); Basophils % 0.4 %; Eosinophils # 0.2 10^3/uL (0.0-0.8); Eosinophils % 1.4 %; Hematocrit 42.1 % (42.0-52.0); Hemoglobin 13.4 g/dL (11.7-16.6); Lymphocytes # 1.9 10^3/uL (0.8-4.8); Lymphocytes % 14.3 %; Mean Corpuscular HGB Conc 31.8 g/dL (30.0-36.0); Mean Corpuscular Hemoglobin 28.8 pg (28.0-34.0); Mean Corpuscular Volume 90.5 fL (80-94); Mean Platelet Volume 10.6 fL (7.4-10.4); Monocytes # 0.8 10^3/uL (0.2-0.9); Neutrophils # 10.53 10^3/uL (1.8-7.7); Neutrophils % 77.6 %; Nucleated Red Blood Cells % 0 %; Platelet Count 391 10^3/cmm (130-400); Red Blood Count 4.65 10^6/uL (4.1-5.3); Red Cell Distribution Width 15.9 % (12.1-15.1); White Blood Count 13.6 10^3/uL (4.0-10.0)
[2020-04-15 18:19] LABS: Amphetamines Screen Urine Negative (Negative); Barbiturates Screen Urine Negative (Negative); Benzodiazepines Screen Urine Positive (Negative); Cocaine Screen Urine Negative (Negative); Opiate Screen Urine Negative (Negative); PCP Screen Urine Negative (Negative); THC Screen Urine Negative (Negative)
[2020-04-15 18:34] LABS: Alanine Aminotransferase 8 U/L (0-41); Albumin Level 4.5 g/dL (3.5-5.2); Alkaline Phosphatase 102 IU/L (40-130); Anion Gap 13.3 (5-19); Aspartate Amino Transferase 10 U/L (0-40); Blood Urea Nitrogen 21 mg/dL (6-20); Carbon Dioxide 26 mmol/L (22-29); Chloride 105 mmol/L (98-107); Globulin 3.4 g/dL (1.3-4.6); Glomerular Filtration Rate 78.2 mL/min (90-130); Glucose 102 mg/dL (65-115); Osmolality Calculated 287 mOsm/kg (285-295); Potassium 4.3 mmol/L (3.5-5.1); Sodium 140 mmol/L (136-145); Total Bilirubin 0.3 mg/dL (0.15-1.2); Total Protein 7.9 g/dL (6.6-8.7)
[2020-04-15 18:35] LABS: Acetaminophen < 5.0 ug/mL (10-30); Alcohol Level < 10 mg/dL (0-10); Salicylate < 0.3 mg/dL (3-10)
--- NOTE | 2020-04-15 19:05 | PC.NURSE ---
VO WITH READBACK FOR ROUTE CHANGE OF OLANZAPINE FROM IM TO PO.
[2020-04-15] MEDS: OLANZapine 10 mg TABLET PO (19:08)
[2020-04-15] MEDS: LORazepam 1 mg Tablet PO (19:36)
[2020-04-15 19:54] VITALS: BP 144/72; PULSE 76; RESP 16; O2SAT 98
--- NOTE | 2020-04-15 19:58 | PC.NURSE ---
REPORT CALLED TO HANS Mendez AT [facility].
--- NOTE | 2020-04-15 21:30 | PC.NURSE ---
report called to sonal rodriguez.
[2020-04-15 21:45] VITALS: BP 124/66; PULSE 84; RESP 18; O2SAT 98
[2020-04-16 06:00] VITALS: BP 118/72; PULSE 82; RESP 16; TEMP 36.3; O2SAT 100
--- NOTE | 2020-04-16 06:15 | PC.NURSE ---
The patient has a pressure ulser in the gluteal fold to the left and below the anus. approximately 4 inches from the anus. This appears to be a stage 3 pressure ulcer. There are three triangular shape open margins from the center of the pressure ulcer. Each open margin is approximately 1 inch in length. The wound is clean with no slough or odor. The old dressing was light pink from serosanguineous drainage. New, clean gauze dressing applied.
[2020-04-16 07:20] LABS: Glucose Point of Care 84 mg/dL (70-110)
--- NOTE | 2020-04-16 07:58 | P.HP_ITS ---
Providers/Chief Complaint Admitting Physician: Frankie David Referral Source: [facility] [place] [facility] Chief Complaint: psych eval HPI NPU History of Present Illness This is a 55 year old male who arrived from a [place] [facility] with police escort because nursing staff said that he had become agitated with them. His mother is not able to give him the care that he needs and he was sent to the chcf, where he began to act out, which occasioned his being sent to us. He had hit a door and they wanted him psychiatrically evaluated. Patient denied any SI or HI symptoms and said he just wants to be left alone sometimes. When he says that he should always be left alone. He has been taking his medication. The patient has not been agitated with us but he does have need of wound care for decubitus ulcer extant at least since October. When I saw him in the emergency room he was calm, organized and making no threats against himself or anybody else. We were going to send him home but Dr. Montalvo, who is the physician for the facility, asked me to reconsider and so he is admitted for adjustment of pharmacotherapy because of assaultive behavior. He apparently was throwing a bed around and was clearly a danger to the staff and other patients as described by Dr. French. An intervening clinical problem is that he has a decubitus ulcer on the left gluteus robin, stage IV, with infection that was treated last October with vancomycin and Zosyn. The patient was sent home on Cip, with referral to wound care clinic. He lives out in [place] under rather sparse conditions. He reports never having been taken for wound care management. Review of Systems Narrative: Const: Denies: fever(s), chills or body aches Eyes: Denies: change in vision or blurry vision ENMT: Denies: throat pain or nasal congestion Card: Denies: chest pain or dyspnea on exertion Resp: Denies: dyspnea, productive cough or non-productive cough GI: Reports: abdominal pain; Denies: nausea or vomiting : Denies: difficulty urinating Musc: Denies: extremity pain Skin/Breast: Denies: rash. Reports ongoing left gluteal decubitus ulcer Neuro: Reports: other (Says legs feel numb at times been going on for years); Denies: headache(s) Psych: Denies: anxiety or depression Scott/Lymph: Denies: easy bruising Meds NPU Home Medications Medication Instructions Recorded Confirmed Last Taken Type benztropine 1 mg PO BID 10/03/19 04/16/20 10/03/19 History fluoxetine 20 mg PO DAILY 10/03/19 04/16/20 04/14/20 09:00 History metformin 500 mg PO DAILY 10/03/19 04/16/20 04/14/20 09:00 History simvastatin 20 mg PO DAILY 10/03/19 04/16/20 04/14/20 21:00 History trazodone 100 mg PO BEDTIME 10/03/19 04/16/20 04/13/20 21:00 History ferrous sulfate 325 mg PO EVERY OTHER DAY #15 tab 10/30/19 04/16/20 04/14/20 09:00 Rx potassium chloride 10 meq PO DAILY #5 tab 10/30/19 04/16/20 04/14/20 09:00 Rx bisacodyl 5 mg PO BID PRN #20 tab 03/20/20 04/16/20 03/29/20 09:00 Rx aripiprazole lauroxil 882 mg/3.2 882 mg IM .monthly ml 04/04/20 04/16/20 03/29/20 History mL suspension, ext.rel. IM syringe famotidine 20 mg tablet 20 mg PO DAILY PRN 04/04/20 04/16/20 04/14/20 09:00 History quetiapine 200 mg tablet 200 mg PO TID 04/04/20 04/16/20 04/14/20 14:00 History Allergies Allergy/AdvReac Type Severity Reaction Status Date / Time No Known Allergies Allergy Verified 04/15/20 17:40 PFS NPU PFSH: Medical History (Updated 04/16/20 @ 08:35 by Frankie David) Anxiety and depression RACHEAL (generalized anxiety disorder) GERD (gastroesophageal reflux disease) Hyperlipidemia Parkinsons disease Schizophrenia Family History Other Diabetes Social History Smoking and tobacco status: former smoker Alcohol intake: never Supplemental PFS Information: The patient was supposed to have been referred for wound care clinic. He says he has no recollection of ever having been taken there. Mental Status Exam MSE Comments: This is a 55-year-old male who presents at his stated age. He is thin, disheveled and unkempt. Mood is anxious and affect is flat. He professes not to know why he has been sent here as he feels just fine right now. Thought processes are integrated but limited. They are free of racing, blocking and looseness of association. Speech is not clearly enunciated but I do not believe it is garbled. It is not formally dysarthric, aprosodic or pressured. Cognitive functions are limited. He knows he is in [place] and, after due reflection, thanks it?s 2019. He cannot remember my name over 5 minutes. Judgment and insight, in my opinion, are impaired despite affirmations of other observers. He denies suicidal or homicidal ideation, plan or intent. Vitals/I&O/Wt Last Vital Signs Temp 97.3 F L 04/16/20 06:00 Pulse 82 04/16/20 06:00 Resp 16 04/16/20 06:00 BP 118/72 04/16/20 06:00 Pulse Ox 100 04/16/20 06:00 Weight last 48 hrs Weight 150 lb Physical Exam Narrative: EXAM NARRATIVE: Const: no acute distress, average body habitus and patient oriented x3 HENMT: normocephalic HEAD & SCALP: normal to inspection and normocephalic FACE & SINUS: normal facial exam Eye: conjunctivae normal GENERAL EYE: appearance normal, both eyes and all related structures. Neck/C-Spine: no JVD Chest: normal inspection of the chest Resp: normal respiratory effort and clear to auscultation bilaterally AUSCULTATION: clear to auscultation bilaterally Cardio: no JVD, regular rate and regular rhythm RATE: regular rate RHYTHM: regular rhythm GI: Normal to inspection, nondistended, normoactive bowel sounds present Extremity: normal to inspection and full ROM Neuro: patient oriented x3 Skin: Gluteal uler left butock, approximately 3 cm square, deep but not purulent that we can see. Data NPU : 04/15/20 18:05 04/15/20 18:05 A&P Assessment and plan (1) Chronic schizophrenia: Consider adjustment of pharmacotherapy, although the immediate indication is not clear. Status: Acute (2) Type 2 diabetes mellitus: A review of metabolic management is indicated Status: Acute Qualifiers: Diabetes mellitus complication status: with skin complications (3) Intermittent explosive disorder in adult: Consideration of lithium Status: Acute Additional A&P Information The patient presently has become unmanageable in the [facility] where he has been staying. Perhaps even worse, he has not been taken for wound care management and there is no evidence that it was ever packed. This patient is at risk of sepsis and requires pharmacologic management of his ulcer and his explosive disorder. Involuntary Hold Information 96 Hour Hold: 96 Hour Involuntary Admission: No Attestations NPU Medical Necessity Statement*: I anticipate 5-7 midnights additional hospitalization Time Spent in Patient Care: Greater than 35 minutes (>than 50% of time spent in counselling and/or direct pt care on unit) . Chart review. Consultation with the ER staff, nurse and mental hygiene consultant, Dr. Franks. Patient interview and examination. 60 minutes. Coding Level of Care Code Acute Carpentry Supervisor for [facility] Fwd Diagnoses Chronic schizophrenia F20.9 Type 2 diabetes mellitus E11.9 Diabetes mellitus complication status: with skin complications Intermittent explosive disorder in adult F63.81
[2020-04-16] MEDS: benztropine 1 mg Tablet PO ×2 (09:34→17:31)
[2020-04-16] MEDS: polyethylene glycol 3350 Pkt 17 gm PO (09:34)
[2020-04-16] MEDS: quetiapine 100 mg Tablet 200 MG PO ×3 (09:35→21:41)
[2020-04-16] MEDS: ferrous sulfate EC 325 mg Tablet PO (09:35)
[2020-04-16] MEDS: potassium chloride ER 10 mEq Tablet PO (09:35)
[2020-04-16] MEDS: fluoxetine 20 mg Capsule PO (09:35)
[2020-04-16] MEDS: metformin 500 mg Tablet PO (09:35)
[2020-04-16] MEDS: cetirizine 10 mg Tablet PO (09:35)
[2020-04-16] MEDS: atorvastatin 40 mg Tablet 20 MG PO (09:35)
--- NOTE | 2020-04-16 10:55 | PM.CONSULT ---
Providers/Reason For Consult Consulting Physican/Specialty*: Sruthi Franks, Hospitalist Reason for Consult*: sacral wound Attending Physician: Frankie David History of Present Illness History of Present Illness Kolby Pickett is a 55 year old male with a past medical history of diabetes, Parkinson's, anxiety and depression as well as hypertension that presented to neuropsychiatric unit due to concern for [facility]. Patient is noted to have a decubitus ulcer and he has been undergoing [facility] at [facility]. He denies any recent changes, minimal drainage, noted that they have been doing wound care at the [facility] facility, has not traveled out side of the [facility] for further wound care. Review of Systems Const: Denies: fever(s) or chills Eyes: Denies: change in vision ENMT: Denies: nasal congestion Card: Denies: chest pain, palpitations or edema Resp: Denies: dyspnea, productive cough or hemoptysis GI: Denies: abdominal pain, nausea, vomiting, diarrhea, constipation, hematochezia or melena : Denies: dysuria or hematuria Musc: Denies: extremity pain or muscle cramps Skin/Breast: Reports: other (Sacral ulcer); Denies: rash or new lesions Neuro: Denies: headache(s) or dizziness Psych: Denies: anxiety or depression Endo: Denies: polyuria or hot flashes Scott/Lymph: Denies: easy bruising or easy bleeding Meds/Allergies Home Medications and Allergies Home Medications Medication Instructions Recorded Confirmed Last Taken Type benztropine 1 mg PO BID 10/03/19 04/16/20 10/03/19 History fluoxetine 20 mg PO DAILY 10/03/19 04/16/20 04/14/20 09:00 History metformin 500 mg PO DAILY 10/03/19 04/16/20 04/14/20 09:00 History simvastatin 20 mg PO DAILY 10/03/19 04/16/20 04/14/20 21:00 History trazodone 100 mg PO BEDTIME 10/03/19 04/16/20 04/13/20 21:00 History ferrous sulfate 325 mg PO EVERY OTHER DAY #15 tab 10/30/19 04/16/20 04/14/20 09:00 Rx potassium chloride 10 meq PO DAILY #5 tab 10/30/19 04/16/20 04/14/20 09:00 Rx bisacodyl 5 mg PO BID PRN #20 tab 03/20/20 04/16/20 03/29/20 09:00 Rx aripiprazole lauroxil 882 mg/3.2 882 mg IM .monthly ml 04/04/20 04/16/20 03/29/20 History mL suspension, ext.rel. IM syringe famotidine 20 mg tablet 20 mg PO DAILY PRN 04/04/20 04/16/20 04/14/20 09:00 History quetiapine 200 mg tablet 200 mg PO TID 04/04/20 04/16/20 04/14/20 14:00 History Allergies Allergy/AdvReac Type Severity Reaction Status Date / Time No Known Allergies Allergy Verified 04/15/20 17:40 Current Medications Current Medications Generic Name Dose Route Start Last Admin Trade Name Freq PRN Reason Stop Dose Admin Atorvastatin Calcium 20 mg 04/16/20 09:00 04/16/20 09:35 Lipitor PO 20 mg DAILY JONATHAN Administration Benztropine Mesylate 1 mg 04/16/20 09:00 04/16/20 09:34 Cogentin PO 1 mg BID JONATHAN Administration Cetirizine HCl 10 mg 04/16/20 09:00 04/16/20 09:35 Zyrtec PO 10 mg DAILY JONATHAN Administration Ferrous Sulfate 325 mg 04/16/20 09:00 04/16/20 09:35 Ferrous Sulfate PO 325 mg EVERY OTHER DAY JONATHAN Administration Fluoxetine HCl 20 mg 04/16/20 09:00 04/16/20 09:35 Prozac PO 20 mg DAILY JONATHAN Administration Metformin HCl 500 mg 04/16/20 09:00 04/16/20 09:35 Glucophage PO 500 mg DAILY JONATHAN Administration Polyethylene Glycol 17 gm 04/16/20 09:00 04/16/20 09:34 Miralax PO 17 gm DAILY JONATHAN Administration Potassium Chloride 10 meq 04/16/20 09:00 04/16/20 09:35 Klor-Con 10 PO 10 meq DAILY JONATHAN Administration Quetiapine Fumarate 200 mg 04/16/20 09:00 04/16/20 09:35 Seroquel PO 200 mg TID JONATHAN Administration PFSH Acute PFSH: Medical History (Updated 04/17/20 @ 09:45 by Frankie David) Anxiety and depression Decubitus ulcer RACHEAL (generalized anxiety disorder) GERD (gastroesophageal reflux disease) Hyperlipidemia Parkinsons disease Schizophrenia Surgical History (Updated 04/16/20 @ 10:58 by Sruthi Franks DO) S/P debridement Decubitus ulcer, 10/2019 Family History Other Diabetes Social History Smoking and tobacco status: former smoker Alcohol intake: never Supplemental PFSH Information: [facility] Vitals/I&O/Wt Last Vital Signs Temp 97.3 F L 04/16/20 06:00 Pulse 82 04/16/20 06:00 Resp 16 04/16/20 06:00 BP 118/72 04/16/20 06:00 Pulse Ox 100 04/16/20 06:00 Weight last 48 hrs Weight 68.039 kg Physical Exam Const: COMMON NORMALS: patient oriented x3 and alert GENERAL APPEARANCE: cooperative ORIENTATION/CONSCIOUSNESS: Yes awake, Yes oriented to person, Yes oriented to place and Yes oriented to time HENMT: COMMON NORMALS: normocephalic and atraumatic HEAD & SCALP: normocephalic and atraumatic Eye: COMMON NORMALS: Equal, round and reactive pupils present PUPIL: Yes Equal, round and reactive pupils present Neck/C-Spine: COMMON NORMALS: supple GENERAL: Yes normal visual inspection Resp: COMMON NORMALS: normal respiratory effort and clear to auscultation bilaterally EFFORT & INSPECTION: Yes able to speak in complete sentences AUSCULTATION: clear to auscultation bilaterally, no rhonchi and no wheezes Cardio: COMMON NORMALS: regular rate, regular rhythm and No murmurs present (Cardio) RATE: regular rate RHYTHM: regular rhythm GI: COMMON NORMALS: Soft to palpation and non-tender INSPECTION: No abdominal distension AUSCULTATION: Yes normoactive bowel sounds PALPATION: Yes Soft to palpation : COMMON NORMALS: Yes no CVA tenderness BLADDER/KIDNEY EXAM: Yes no CVA tenderness Back/Pelvis: COMMON NORMALS: no CVA tenderness Extremity: COMMON NORMALS: no clubbing, cyanosis or edema and no calf tenderness Neuro: COMMON NORMALS: patient oriented x3, CN's II-XII intact bilaterally, moves all extremities and no focal motor deficits SENSORIUM/ORIENTATION: Yes alert, Yes oriented to person, Yes oriented to place and Yes oriented to time SPEECH: speech normal Psych: COMMON NORMALS: cooperative Skin: NARRATIVE SKIN EXAM: 4 x 2.3 cm decubitus ulcer on the left gluteal region, surrounded by granulation tissue, no significant drainage, no surrounding erythema A&P Assessment and plan (1) Decubitus ulcer: Patient has a gluteal ulcer that is been present since October of this year Hydroferindiana Blue with Covaderm dressing Continue offloading Surrounded by granulation tissue, would recommend outpatient wound care follow-up for debridement, no need for acute surgical intervention at this time No evidence of acute infectious process at this time, will hold off on antibiotics Status: Acute Consult Attestations Medical Necessity Statement: per primary Coding Level of Care Code Acute Chemical Handler for [facility] Fwd Exam Comprehensive Diagnoses Decubitus ulcer L89.90
[2020-04-16 11:31] LABS: Glucose Point of Care 79 mg/dL (70-110)
[2020-04-16 13:50] VITALS: BP 136/73; PULSE 102; RESP 18; TEMP 36.3; O2SAT 100
--- NOTE | 2020-04-16 20:03 | PC.NURSE ---
Patient stated he has two teeth remaining.
[2020-04-16 21:11] VITALS: BP 115/67; PULSE 69; RESP 19; TEMP 36.8; O2SAT 98
[2020-04-16 21:19] LABS: Glucose Point of Care 88 mg/dL (70-110)
--- NOTE | 2020-04-16 21:29 | PC.NURSE ---
Pressure ulcer assessed daily in the am.
[2020-04-16] MEDS: hyDROXYzine 25 mg Capsule 50 MG PO (21:42)
[2020-04-16] MEDS: trazodone 100 mg Tablet PO (21:42)
--- NOTE | 2020-04-17 04:56 | PC.NURSE ---
dressing change to ulcer on left side of coccyx. used 4cm x 4cm square piece of Hudrofera Blue covered with 4 x 4 gentle foam dressing. patient tolerated well.
[2020-04-17 06:00] VITALS: BP 125/63; PULSE 52; RESP 19; TEMP 36.6; O2SAT 97
[2020-04-17 07:15] LABS: Glucose Point of Care 66 mg/dL (70-110)
[2020-04-17] MEDS: metformin 500 mg Tablet PO (08:51)
[2020-04-17] MEDS: atorvastatin 40 mg Tablet 20 MG PO (08:51)
[2020-04-17] MEDS: potassium chloride ER 10 mEq Tablet PO (08:51)
[2020-04-17] MEDS: benztropine 1 mg Tablet PO ×2 (08:52→18:05)
[2020-04-17] MEDS: fluoxetine 20 mg Capsule PO (08:52)
[2020-04-17] MEDS: cetirizine 10 mg Tablet PO (08:52)
[2020-04-17] MEDS: quetiapine 100 mg Tablet 200 MG PO ×3 (08:52→21:24)
[2020-04-17] MEDS: polyethylene glycol 3350 Pkt 17 gm PO (08:54)
--- NOTE | 2020-04-17 09:25 | PM.NPN ---
Subjective NPU Subjective: Interval history: The patient today as quite calm. He is very comfortable on our unit and has never gotten agitated. He certainly has not been violent as described by the senior living care facility whence he came. Dr. Franks's consultation is gratefuly received. Medications: Reviewed: Yes Medication Review Details: Current Medications Acetaminophen (Tylenol) 650 mg PO Q4H PRN PRN Reason: MILD PAIN Atorvastatin Calcium (Lipitor) 20 mg PO DAILY [facility] Last Admin: 04/17/20 08:51 Dose: 20 mg Documented by: Benztropine Mesylate (Cogentin) 1 mg PO BID PRN PRN Reason: Mild Extrapyramidal symptoms Benztropine Mesylate (Cogentin) 1 mg PO BID [facility] Last Admin: 04/17/20 08:52 Dose: 1 mg Documented by: Bisacodyl (Dulcolax) 5 mg PO BID PRN PRN Reason: constipation Camphor/Menthol/Phenol (Blistex) 1 applic TOPICAL Q1H PRN PRN Reason: DRYNESS Cetirizine HCl (Zyrtec) 10 mg PO DAILY [facility] Last Admin: 04/17/20 08:52 Dose: 10 mg Documented by: Diazepam (Valium) 2 mg PO ONCE JONATHAN Diphenhydramine HCl (Benadryl) 50 mg IM ONCE PRN PRN Reason: Severe Extrapyramidal Symptoms Diphenhydramine HCl (Benadryl) 50 mg IM Q4H PRN PRN Reason: Severe Aggression Ergocalciferol (Vitamin D2) 50,000 unit PO We@0800 [facility] Famotidine (Pepcid Tab) 20 mg PO DAILY PRN PRN Reason: Acid Reflux Ferrous Sulfate (Ferrous Sulfate) 325 mg PO EVERY OTHER DAY [facility] Last Admin: 04/16/20 09:35 Dose: 325 mg Documented by: Fluoxetine HCl (Prozac) 20 mg PO DAILY [facility] Last Admin: 04/17/20 08:52 Dose: 20 mg Documented by: Haloperidol (Haldol) 5 mg PO Q4H PRN PRN Reason: AGITATION Haloperidol Lactate (Haldol Inj) 5 mg IM Q4H PRN PRN Reason: Severe Aggression Hydroxyzine Pamoate (Vistaril) 50 mg PO Q6H PRN PRN Reason: ANXIETY Last Admin: 04/16/20 21:42 Dose: 50 mg Documented by: Loperamide HCl (Imodium Capsule) 2 mg PO Q6H PRN PRN Reason: DIARRHEA Lorazepam (Ativan) 2 mg IM Q4H PRN PRN Reason: Severe Aggression Metformin HCl (Glucophage) 500 mg PO DAILY [facility] Last Admin: 04/17/20 08:51 Dose: 500 mg Documented by: Nicotine (Nicoderm 21 Mg Patch) 1 patch TRANSDERMA DAILY PRN PRN Reason: NICOTINE WITHDRAWAL Nicotine Polacrilex (Nicorette) 2 mg BUCCAL Q2H PRN PRN Reason: NICOTINE WITHDRAWAL Non-Formulary Medication (Aripiprazole Lauroxil [Aristada]) 882 mg IM Q30D [facility] Olanzapine (Zyprexa Zydis) 5 mg PO Q4H PRN PRN Reason: Agitation/Psychosis Ondansetron HCl (Zofran) 4 mg PO Q6H PRN PRN Reason: NAUSEA AND VOMITING Polyethylene Glycol (Miralax) 17 gm PO DAILY [facility] Last Admin: 04/17/20 08:54 Dose: 17 gm Documented by: Potassium Chloride (Klor-Con 10) 10 meq PO DAILY [facility] Last Admin: 04/17/20 08:51 Dose: 10 meq Documented by: Quetiapine Fumarate (Seroquel) 200 mg PO TID [facility] Last Admin: 04/17/20 08:52 Dose: 200 mg Documented by: Trazodone HCl (Desyrel) 50 mg PO BEDTIME PRN PRN Reason: SLEEP Trazodone HCl (Desyrel) 100 mg PO BEDTIME [facility] Last Admin: 04/16/20 21:42 Dose: 100 mg Documented by: Mental Status Exam MSE Comments: This is a 55-year-old male who presents at his stated age. Mood is calm and affect is appropriate. Thought processes are integrated and free of any racing, blocking or looseness of association. Cognitive functions seem to have improved. His orientation is intact and he knows who the president is. Serial sevens are beyond him. Long and short-term memory, however, seem to be pretty solid. Insight and judgment are fragile. He has not had any aggressive behavior here and we have yet to file them why he exhibited it at his previous facility. Vitals/I&O/Wt Last Vital Signs Temp 97.8 F 04/17/20 06:00 Pulse 52 L 04/17/20 06:00 Resp 19 H 04/17/20 06:00 BP 125/63 04/17/20 06:00 Pulse Ox 97 04/17/20 06:00 Weight last 48 hrs Weight 150 lb Physical Exam Narrative: EXAM NARRATIVE: Const GENERAL APPEARANCE: cooperative ORIENTATION/CONSCIOUSNESS: awake, oriented to person, oriented to place and oriented to time HENMT normocephalic and atraumatic Eye Equal, round and reactive pupils present Neck/C-Spine supple GENERAL: normal visual inspection Resp normal respiratory effort EFFORT & INSPECTION: able to speak in complete sentences AUSCULTATION: clear to auscultation bilaterally, no rhonchi and no wheezes Cardio regular rate, regular rhythm and No murmurs present (Cardio) GI INSPECTION: No abdominal distension AUSCULTATION: normoactive bowel sounds PALPATION: Soft to palpation no CVA tenderness BLADDER/KIDNEY EXAM: no CVA tenderness Back/Pelvis no CVA tenderness Extremity no clubbing, cyanosis or edema and no calf tenderness Neuro patient oriented x3, CN's II-XII intact bilaterally, moves all extremities and no focal motor deficits SENSORIUM/ORIENTATION: alert, oriented to person, oriented to place and oriented to time SPEECH: speech normal Psych cooperative Skin NARRATIVE SKIN EXAM: 4 x 2.3 cm decubitus ulcer on the left gluteal region, surrounded by granulation tissue, no significant drainage, no surrounding erythema Data NPU : 04/15/20 18:05 04/15/20 18:05 A&P Assessment and plan (1) Schizophrenia: Patient remains calm and stable on current millieu and pharmacotherapy. He has not been aggressive since hospitalization Status: Resolved Involuntary Hold Information 96 Hour Hold: 96 Hour Involuntary Admission: No Attestations NPU Medical Necessity Statement*: This patient needs to be returned to his facility. They say he cannot come back there. The facility gave no notice to him or to us. Time Spent in Patient Care: Greater than 35 minutes (>than 50% of time spent in counselling and/or direct pt care on unit). Coding Level of Care Code Acute Board Catcher for [facility] Fwd Diagnoses Schizophrenia F20.9
[2020-04-17] MEDS: ergocalciferol (vitamin D2) 50,000 Unit Capsule 50000 UNIT PO (10:14)
--- NOTE | 2020-04-17 13:44 | PC.NURSE ---
PATIENT IS OBSERVED SITTING ON HID BED, TALKING TO THE WINDOW. APPROACHED PATIENT WHO STATES DR. ECHAVARRIA IS TRYING TO STEAL MY IDENTITY, HES TAKEN MY CREDIT CARDS AND SOCIAL SECURITY CARD. PATIENT REPORTS THEY TOLD HIM THIS AND POINTED TO THE WINDOW. WILL CONT TO MONITOR , SUPPORT AND REDIRECT NEEDED.
[2020-04-17 14:00] VITALS: BP 109/65; PULSE 92; RESP 18; TEMP 36.6; O2SAT 98
--- NOTE | 2020-04-17 16:33 | P.PN_ITS ---
Subjective Subjective: Interval history: Patient resting comfortably in bed at time of exam this afternoon. He denied any chest pain or shortness of breath. Denied any pain in ulcer. Discussed with patient need for continued wound care and outpatient wound follow-up, he verbalized understanding and agreed with plan. RN present at bedside during exam. Vitals/I&O/Wt Last Vital Signs Temp 97.8 F 04/17/20 14:00 Pulse 92 04/17/20 14:00 Resp 18 04/17/20 14:00 BP 109/65 04/17/20 14:00 Pulse Ox 98 04/17/20 14:00 Weight last 48 hrs Weight 68.039 kg Physical Exam Const: COMMON NORMALS: patient oriented x3 and alert GENERAL APPEARANCE: cooperative ORIENTATION/CONSCIOUSNESS: Yes awake, Yes oriented to person, Yes oriented to place and Yes oriented to time HENMT: COMMON NORMALS: normocephalic and atraumatic HEAD & SCALP: normo cephalic and atraumatic Eye: COMMON NORMALS: Equal, round and reactive pupils present PUPIL: Yes Equal, round and reactive pupils present Neck/C-Spine: COMMON NORMALS: supple GENERAL: Yes normal visual inspection Resp: COMMON NORMALS: normal respiratory effort and clear to auscultation bilaterally EFFORT & INSPECTION: Yes able to speak in complete sentences AUSCULTATION: clear to auscultation bilaterally, no rhonchi and no wheezes Cardio: COMMON NORMALS: regular rate, regular rhythm and No murmurs present (Cardio) RATE: regular rate RHYTHM: regular rhythm Extremity: COMMON NORMALS: no clubbing, cyanosis or edema Neuro: COMMON NORMALS: patient oriented x3, CN's II-XII intact bilaterally, moves all extremities and no focal motor deficits SENSORIUM/ORIENTATION: Yes alert, Yes oriented to person, Yes oriented to place and Yes oriented to time SPEECH: speech normal Psych: COMMON NORMALS: cooperative Skin: NARRATIVE SKIN EXAM: 4 x 2.3 cm decubitus ulcer on the left gluteal region, surrounded by granulation tissue, no significant drainage, no surrounding erythema Data : 04/15/20 18:05 04/15/20 18:05 A&P Assessment and plan (1) Decubitus ulcer: Patient has a gluteal ulcer that is been present since October of this year, no evidence of any active infectious process. No indication for surgical debridement at this time. Will require close follow-up in the outpatient wound care setting. Hydrofera Blue with Covaderm dressing Continue offloading hold off on antibiotics at this time due to no concern for acute infectious process Status: Acute Attestations Medical Necessity Statement*: Per primary attending Coding Level of Care Code Acute Senior Tech Manufacturing Engineering for [facility] Diagnoses Decubitus ulcer L89.90
[2020-04-17 17:51] LABS: Glucose Point of Care 153 mg/dL (70-110)
[2020-04-17 19:40] LABS: Glucose Point of Care 103 mg/dL (70-110)
[2020-04-17 20:01] VITALS: BP 117/69; PULSE 73; RESP 14; TEMP 36.3; O2SAT 93
[2020-04-17] MEDS: trazodone 100 mg Tablet PO (21:25)
[2020-04-17] MEDS: hyDROXYzine 25 mg Capsule 50 MG PO (21:26)
[2020-04-18 06:00] VITALS: BP 104/71; PULSE 75; RESP 18; TEMP 37; O2SAT 99
[2020-04-18 06:59] LABS: Glucose Point of Care 66 mg/dL (70-110)
[2020-04-18] MEDS: quetiapine 100 mg Tablet 200 MG PO ×3 (08:17→20:18)
[2020-04-18] MEDS: fluoxetine 20 mg Capsule PO (08:17)
[2020-04-18] MEDS: cetirizine 10 mg Tablet PO (08:17)
[2020-04-18] MEDS: potassium chloride ER 10 mEq Tablet PO (08:17)
[2020-04-18] MEDS: ferrous sulfate EC 325 mg Tablet PO (08:18)
[2020-04-18] MEDS: atorvastatin 40 mg Tablet 20 MG PO (08:18)
[2020-04-18] MEDS: metformin 500 mg Tablet PO (08:18)
[2020-04-18] MEDS: benztropine 1 mg Tablet PO ×2 (08:18→16:44)
--- NOTE | 2020-04-18 08:19 | PC.NURSE ---
refused scheduled Miralax
--- NOTE | 2020-04-18 13:18 | P.PN_ITS ---
Subjective NPU Subjective: Interval history: Patient presented today reporting that he is making arrangements for discharge tomorrow. Reports that his medications have been effective and he feels prepared to leave tomorrow. He was fairly confused with open-ended questions and so questions had to be very direct to elicit an appropriate response. He reports eating and sleeping okay. Mental Status Exam MSE Comments: This is a underweight white male looking older than his stated age with adequate progress and limited grooming and eye contact. No abnormal movements. Cooperative with exam and no acute distress. Speech was slightly decreased rate and volume. Mood described as okay, affect slightly subdued. Thought process mostly organized. Thought content: Patient denied any suicidal or homicidal ideations, there were no delusions reported or noted, he denied any auditory or visual examination. Attention and concentration appear intact, but memory was unreliable but none were formally tested. He was alert and oriented ?3. Insight and judgment are limited. Vitals/I&O/Wt Last Vital Signs Temp 97.7 F 04/18/20 22:00 Pulse 85 04/18/20 22:00 Resp 16 04/18/20 22:00 BP 104/67 04/18/20 22:00 Pulse Ox 96 04/18/20 22:00 Data NPU : 04/15/20 18:05 04/15/20 18:05 A&P Assessment and plan (1) Chronic schizophrenia: Status: Acute (2) Parkinsons disease: Status: Acute Additional A&P Information This is a 55-year-old white male with a history of schizophrenia Parkinson's and a question of mild dementia versus sequela of the schizophrenia who presents reportedly more stable than at admission, preparing for discharge. 1. Continue current medication. 2. Continue every 15 minute checks for safety. 3. Encourage individual, group and milieu therapy. Involuntary Hold Information 96 Hour Hold: 96 Hour Involuntary Admission: No Attestations NPU Medical Necessity Statement*: Inpatient hospitalization is medically necessary and the clinically appropriate intervention at this time. Will monitor medications and make changes as indicated. Likely length of stay 1-3 days. We'll be planning for discharge in the morning. Coding Level of Care Code Acute Electric Meter Reader for Royce Montanez Diagnoses Chronic schizophrenia F20.9 Parkinsons disease G20
[2020-04-18 14:00] VITALS: BP 101/68; PULSE 98; RESP 18; TEMP 36.9; O2SAT 96
[2020-04-18 20:07] LABS: Glucose Point of Care 87 mg/dL (70-110)
[2020-04-18] MEDS: trazodone 100 mg Tablet PO (20:17)
[2020-04-18 22:00] VITALS: BP 104/67; PULSE 85; RESP 16; TEMP 36.5; O2SAT 96
[2020-04-19] MEDS: diazePAM 2 mg Tablet PO (03:35)
--- NOTE | 2020-04-19 03:38 | PC.NURSE ---
Patient has had a difficult night resting. Given 2mg diazepam PO at 0335 for anxiety. Patient has been talking to his reflection in the window most of the evening. He is pleasant and easy to talk to but seems lost as to what time of day it is and where he is at the moment. He stated that he is hearing voices talk to him and that they are worse this evening.
[2020-04-19 06:00] VITALS: BP 92/63; PULSE 67; RESP 18; TEMP 36.6; O2SAT 99
--- NOTE | 2020-04-19 06:46 | NUR.SHIFT ---
Patient is in the shower. He has soiled his brief and will need a new dressing on his wound.
[2020-04-19 06:59] LABS: Glucose Point of Care 79 mg/dL (70-110)
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
[2020-04-19] MEDS: benztropine 1 mg Tablet PO (08:06)
[2020-04-19] MEDS: fluoxetine 20 mg Capsule PO (08:06)
[2020-04-19] MEDS: metformin 500 mg Tablet PO (08:06)
[2020-04-19] MEDS: potassium chloride ER 10 mEq Tablet PO (08:07)
[2020-04-19] MEDS: atorvastatin 40 mg Tablet 20 MG PO (08:07)
[2020-04-19] MEDS: cetirizine 10 mg Tablet PO (08:07)
[2020-04-19] MEDS: quetiapine 100 mg Tablet 200 MG PO ×2 (08:07→14:41)
[2020-04-19 09:12] VITALS: BP 92/63; PULSE 67; RESP 18; TEMP 36.6; O2SAT 99
--- NOTE | 2020-04-19 09:20 | PC.SOCIAL ---
*IMM* . Patient was gave the MCR Important Message. He signed the original and was gave a copy. Original is in the chart.
== END 2020-04-19 16:38 | disposition home or self-care (01) | DRG 885 ==
LOC: ER 20:47 → NP 21:12
PROVIDERS: Emergency Provider Nurse Practitioner Family; Visit Provider Psychiatry & Neurology Psychiatry
DX: F20.9 Schizophrenia, unspecified (principal); L89.324 Pressure ulcer of left buttock, stage 4; G20 Parkinson's disease; F41.8 Other specified anxiety disorders; K21.9 Gastro-esophageal reflux disease without esophagitis; E78.5 Hyperlipidemia, unspecified; Z87.891 Personal history of nicotine dependence; E11.9 Type 2 diabetes mellitus without complications; Z79.84 Long term (current) use of oral hypoglycemic drugs; I10 Essential (primary) hypertension
CPT/HCPCS: 12345; 36416; 80053; 80306; 80307; 81003; 82962; 85025; 99284

== ENCOUNTER 2020-04-23 13:19 | Outpatient (CLI) | payer MEDICARE, MEDICAID, SELFPAY | END 2020-04-23 13:20 | disposition home or self-care (01) | LOC: WOUND 13:22 | PROVIDERS: Visit Provider Thoracic Surgery (Cardiothoracic Vascular Surgery) | DX: L98.412 Non-pressure chronic ulcer of buttock with fat layer exposed (principal) | CPT/HCPCS: 11042 ==

== ENCOUNTER 2020-04-30 14:25 | Outpatient (CLI) | payer MEDICARE, MEDICAID, SELFPAY | END 2020-04-30 14:26 | disposition home or self-care (01) | LOC: WOUND 14:26 | PROVIDERS: Visit Provider Thoracic Surgery (Cardiothoracic Vascular Surgery) | DX: L89.323 Pressure ulcer of left buttock, stage 3 (principal) | CPT/HCPCS: 11042 ==

== ENCOUNTER 2020-05-07 14:29 | Outpatient (CLI) | payer MEDICARE, MEDICAID, SELFPAY | END 2020-05-07 14:30 | disposition home or self-care (01) | LOC: WOUND 14:32 | PROVIDERS: Visit Provider Thoracic Surgery (Cardiothoracic Vascular Surgery) | DX: I96 Gangrene, not elsewhere classified (principal); L89.323 Pressure ulcer of left buttock, stage 3 | CPT/HCPCS: 11042 ==

== ENCOUNTER 2020-05-15 14:51 | Outpatient (CLI) | payer MEDICARE, MEDICAID, SELFPAY | END 2020-05-15 14:52 | disposition home or self-care (01) | LOC: WOUND 14:51 | PROVIDERS: Visit Provider Thoracic Surgery (Cardiothoracic Vascular Surgery) | DX: L89.323 Pressure ulcer of left buttock, stage 3 (principal) | CPT/HCPCS: 11042 ==

== ENCOUNTER → 2020-05-27 10:24 | Outpatient (BNVA) | payer MEDICARE, MEDICAID, SELFPAY | PROVIDERS: Visit Provider Psychiatry & Neurology Psychiatry | DX: F20.9 Schizophrenia, unspecified (principal); F41.1 Generalized anxiety disorder | CPT/HCPCS: 99214 ==

== ENCOUNTER 2020-05-28 14:01 | Outpatient (CLI) | payer MEDICARE, MEDICAID, SELFPAY | END 2020-05-28 14:02 | disposition home or self-care (01) | LOC: WOUND 14:02 | PROVIDERS: Visit Provider Thoracic Surgery (Cardiothoracic Vascular Surgery) | DX: L89.323 Pressure ulcer of left buttock, stage 3 (principal) | CPT/HCPCS: 11042 ==

== ENCOUNTER 2020-06-04 14:54 | Outpatient (CLI) | payer MEDICARE, MEDICAID, SELFPAY | END 2020-06-04 14:55 | disposition home or self-care (01) | LOC: WOUND 14:55 | PROVIDERS: Visit Provider Thoracic Surgery (Cardiothoracic Vascular Surgery) | DX: L89.323 Pressure ulcer of left buttock, stage 3 (principal) | CPT/HCPCS: 11042 ==

== ENCOUNTER 2020-06-05 13:33 | Outpatient (CLI) | payer MEDICARE, MEDICAID, SELFPAY ==
--- NOTE | 2020-06-05 14:08 | CT_ITS ---
WS: [id number] CT pelvis TECHNIQUE: Contrast-enhanced CT of the pelvis with coronal and sagittal reformatted images. CLINICAL INFORMATION: PAIN,REDNESS,NONHEALING PRESSURE ULCER STAGE III COMPARISON: CT 03/20 2020 and 10/24/2019 DLP: 815.[address] scans at [facility] use at least one of these dose optimization techniques: automat ed exposure control; mA and/or kV adjustment per patient size (includes targeted exams where dose is matched to clinical indication); or iterative reconstruction. FINDINGS: Again seen is the area of ulceration overlying the left gluteal cleft. This has improved compared to the prior examination with resolution of the subcutaneous air and inflammatory stranding. Margins nicolás ear mature with soft tissue thickening along the ulcer tract extending to the left gluteal muscles. P ersistent ulcer tract communication adjacent the left gluteal muscles although improved in extent fro m previous. No evidence of drainable abscess or fluid collection. Rectosigmoid appears normal. Tiny fat-containing umbilical hernia. A few prominent inguinal lymph nod es likely reactive. No pelvic lymphadenopathy. Soft tissue nodule along the greater trochanter in the subcutaneous fat measures 2.0 cm is nonspecific. This may represent an enlarged lymph node or hemato ma from injection or trauma. CT/CT pelvis w con* [id number] IMPRESSION: 1. The previously described decubitus ulcer in the left gluteal cleft has impr alice compared to October 24, 2019. Resolution of the subcutaneous air and inflamm atory stranding. 2. Ulcer cleft and ulcer tract appears well marginated with mature appearing t hick rey. No drainable abscess or fluid collection. 3. Well marginated ulcer tract extends into the left perineum adjacent to the gluteal muscles although improved in depth from previous. 4. A few inguinal lymph nodes likely reactive. 5. Subcutaneous nodule overlying the left greater trochanter in the subcutaneo us fat measures 2 cm may represent enlarged lymph node or hematoma from injecti on or trauma.
[2020-06-05] MEDS: iohexol 300 mg/mL 100 mL Btl IV (15:20)
== END 2020-06-05 13:34 | disposition home or self-care (01) ==
PROVIDERS: PCP Nurse Practitioner; Visit Provider Thoracic Surgery (Cardiothoracic Vascular Surgery)
DX: R10.2 Pelvic and perineal pain (principal); L53.9 Erythematous condition, unspecified; L89.323 Pressure ulcer of left buttock, stage 3
CPT/HCPCS: 72193; Q9967

== ENCOUNTER 2020-06-06 13:42 | Outpatient (CLI) | payer MEDICARE, MEDICAID, SELFPAY ==
[2020-06-06 14:16] LABS: Alanine Aminotransferase 14 U/L (0-41); Albumin Level 3.9 g/dL (3.5-5.2); Alkaline Phosphatase 103 IU/L (40-130); Anion Gap 13.5 (5-19); Aspartate Amino Transferase 15 U/L (0-40); Blood Urea Nitrogen 19 mg/dL (6-20); Calcium 9.4 mg/dL (8.5-10.5); Carbon Dioxide 26 mmol/L (22-29); Chloride 103 mmol/L (98-107); Globulin 2.8 g/dL (1.3-4.6); Glomerular Filtration Rate 88.3 mL/min (90-130); Glucose 144 mg/dL (65-115); Osmolality Calculated 291 mOsm/kg (285-295); Potassium 4.5 mmol/L (3.5-5.1); Prealbumin 22.7 mg/dL (20-40); Sodium 138 mmol/L (136-145); Total Bilirubin 0.2 mg/dL (0.15-1.2); Total Protein 6.7 g/dL (6.6-8.7)
[2020-06-06 14:29] LABS: Basophils # 0.1 10^3/uL (0.0-0.1); Basophils % 1.1 %; Eosinophils # 0.3 10^3/uL (0.0-0.8); Eosinophils % 3.7 %; Hematocrit 40.3 % (42.0-52.0); Hemoglobin 12.5 g/dL (11.7-16.6); Lymphocytes # 1.6 10^3/uL (0.8-4.8); Lymphocytes % 19.3 %; Mean Corpuscular Hemoglobin 28.4 pg (28.0-34.0); Mean Corpuscular Volume 91.6 fL (80-94); Mean Platelet Volume 11.2 fL (7.4-10.4); Monocytes # 0.6 10^3/uL (0.2-0.9); Monocytes % 6.8 %; Neutrophils # 5.52 10^3/uL (1.8-7.7); Neutrophils % 68.2 %; Nucleated Red Blood Cells % 0 %; Platelet Count 331 10^3/cmm (130-400); Red Cell Distribution Width 14.2 % (12.1-15.1); White Blood Count 8.1 10^3/uL (4.0-10.0)
[2020-06-06 15:37] LABS: Erythrocyte Sedimentation Rate 13 mm/hr (0-10)
== END 2020-06-06 13:43 | disposition home or self-care (01) ==
LOC: LAB 13:47
PROVIDERS: PCP Nurse Practitioner; Visit Provider Thoracic Surgery (Cardiothoracic Vascular Surgery)
DX: E11.9 Type 2 diabetes mellitus without complications (principal)
CPT/HCPCS: 80053; 84134; 85025; 85651

== ENCOUNTER 2020-06-11 14:42 | Outpatient (CLI) | payer MEDICARE, MEDICAID, SELFPAY | END 2020-06-11 14:43 | disposition home or self-care (01) | LOC: WOUND 14:44 | PROVIDERS: PCP Nurse Practitioner; Visit Provider Thoracic Surgery (Cardiothoracic Vascular Surgery) | DX: L89.323 Pressure ulcer of left buttock, stage 3 (principal) | CPT/HCPCS: 11042 ==

== ENCOUNTER 2020-06-18 14:47 | Outpatient (CLI) | payer MEDICARE, MEDICAID, SELFPAY | END 2020-06-18 14:48 | disposition home or self-care (01) | LOC: WOUND 14:50 | PROVIDERS: PCP Nurse Practitioner; Visit Provider Thoracic Surgery (Cardiothoracic Vascular Surgery) | DX: L89.323 Pressure ulcer of left buttock, stage 3 (principal) | CPT/HCPCS: 11042 ==

== ENCOUNTER 2020-06-25 15:08 | Outpatient (CLI) | payer MEDICARE, MEDICAID, SELFPAY | END 2020-06-25 15:09 | disposition home or self-care (01) | LOC: WOUND 15:09 | PROVIDERS: PCP Nurse Practitioner; Visit Provider Nurse Practitioner Family | DX: L89.323 Pressure ulcer of left buttock, stage 3 (principal) | CPT/HCPCS: 11042 ==

== ENCOUNTER 2020-07-09 14:27 | Outpatient (CLI) | payer MEDICARE, MEDICAID, SELFPAY | END 2020-07-09 14:28 | disposition home or self-care (01) | LOC: WOUND 14:28 | PROVIDERS: PCP Nurse Practitioner; Visit Provider Thoracic Surgery (Cardiothoracic Vascular Surgery) | DX: I96 Gangrene, not elsewhere classified (principal); L89.323 Pressure ulcer of left buttock, stage 3 | CPT/HCPCS: 11042 ==

== ENCOUNTER 2020-07-23 14:46 | Outpatient (CLI) | payer MEDICARE, MEDICAID, SELFPAY | END 2020-07-23 14:47 | disposition home or self-care (01) | LOC: WOUND 14:47 | PROVIDERS: PCP Nurse Practitioner; Visit Provider Thoracic Surgery (Cardiothoracic Vascular Surgery) | DX: I96 Gangrene, not elsewhere classified (principal); L89.323 Pressure ulcer of left buttock, stage 3 | CPT/HCPCS: 11042 ==

== ENCOUNTER 2021-01-24 13:36 | Inpatient (IN) | payer MEDICARE, MEDICAID, SELFPAY ==
[2021-01-24 13:43] VITALS: BP 150/90; PULSE 106; RESP 16; O2SAT 98; BMI 29.1
[2021-01-24] MEDS: LORazepam 2 mg/mL INJ 1 mL IM (13:54)
[2021-01-24] MEDS: ziprasidone 20 mg/mL SDV IM (13:54)
[2021-01-24] MEDS: water for injection-sterile 10 ML 1.2 ML (13:55)
[2021-01-24 13:56] VITALS: BP 120/85; PULSE 98; RESP 15; O2SAT 97
[2021-01-24 14:20] LABS: Basophils # 0.1 10^3/uL (0.0-0.1); Basophils % 0.4 %; Eosinophils # 0.1 10^3/uL (0.0-0.8); Eosinophils % 0.6 %; Hematocrit 45.7 % (42.0-52.0); Hemoglobin 14.6 g/dL (11.7-16.6); Lymphocytes # 1.2 10^3/uL (0.8-4.8); Lymphocytes % 8.7 %; Mean Corpuscular HGB Conc 31.9 g/dL (30.0-36.0); Mean Corpuscular Hemoglobin 28.2 pg (28.0-34.0); Mean Corpuscular Volume 88.4 fL (80-94); Mean Platelet Volume 10.7 fL (7.4-10.4); Monocytes # 0.7 10^3/uL (0.2-0.9); Monocytes % 5.4 %; Neutrophils # 11.31 10^3/uL (1.8-7.7); Neutrophils % 84.5 %; Nucleated Red Blood Cells % 0 %; Platelet Count 340 10^3/cmm (130-400); Red Blood Count 5.17 10^6/uL (4.1-5.3); Red Cell Distribution Width 13.8 % (12.1-15.1); White Blood Count 13.4 10^3/uL (4.0-10.0)
[2021-01-24 14:21] LABS: Add Urine Microscopic? NO; Charge for UA Resulting for Rev
[2021-01-24 14:26] LABS: Bilirubin Urine Neg (Negative); Blood Urine Neg (Negative); Glucose Urine UA Norm (Normal); Ketones Urine Negative (Negative); Leukocyte Esterase Urine Negative (Negative); Nitrate Urine Negative (Negative); Protein Urine Neg (Negative); Urine Appearance Clear (CLEAR); Urine Color Straw (Yellow); Urobilinogen Urine Norm (Negative); pH Urine 7 (5-7)
[2021-01-24 14:35] LABS: Amphetamines Screen Urine Negative (Negative); Barbiturates Screen Urine Negative (Negative); Benzodiazepines Screen Urine Negative (Negative); Cocaine Screen Urine Negative (Negative); Opiate Screen Urine Negative (Negative); PCP Screen Urine Negative (Negative); THC Screen Urine Negative (Negative)
[2021-01-24 14:42] LABS: Alanine Aminotransferase 30 U/L (0-41); Albumin Level 4.1 g/dL (3.5-5.2); Alkaline Phosphatase 112 IU/L (40-130); Aspartate Amino Transferase 19 U/L (0-40); Blood Urea Nitrogen 14 mg/dL (6-20); Calcium 9.1 mg/dL (8.5-10.5); Carbon Dioxide 22 mmol/L (22-29); Chloride 101 mmol/L (98-107); Globulin 2.7 g/dL (1.3-4.6); Glomerular Filtration Rate 78.2 mL/min (90-130); Glucose 106 mg/dL (65-115); Osmolality Calculated 285 mOsm/kg (285-295); Sodium 137 mmol/L (136-145); Total Bilirubin 0.4 mg/dL (0.15-1.2); Total Protein 6.8 g/dL (6.6-8.7)
[2021-01-24 14:44] LABS: Acetaminophen < 5.0 ug/mL (10-30); Alcohol Level < 10 mg/dL (0-10); Salicylate < 0.3 mg/dL (3-10)
[2021-01-24 14:45] VITALS: BP 124/66; PULSE 89; RESP 16; O2SAT 95
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
[2021-01-24 16:00] VITALS: BP 120/85; PULSE 114; RESP 15; O2SAT 99
[2021-01-24 16:39] VITALS: BP 134/82; PULSE 100; RESP 20; TEMP 37.2; O2SAT 95
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
[2021-01-24 20:14] VITALS: BP 128/79; PULSE 92; RESP 17; TEMP 36.8; O2SAT 100
[2021-01-25] MEDS: OLANZapine 5 mg ODT PO (00:19)
[2021-01-25] MEDS: hyDROXYzine 25 mg Capsule 50 MG PO (00:22)
[2021-01-25] MEDS: trazodone 50 mg Tablet PO (00:23)
--- NOTE | 2021-01-25 00:33 | PC.NURSE ---
The patient has been isolating in his room. He is hallucinating and facing the wall carrying on a conversation. He is delusional believing relatives are trying to steal his property. He started to become somewhat loud. I went to his room with the med cart and introduced myself. I told him I had some medications the doctor wanted him to take. He said, I am not taking any medications. As he continued to refuse medications he sat on the bed, took the cup with meds from my hand, then into his mouth and swallowed all with water. He was given Zyprexa 5 mg, Vistaril 50 mg, Trazodone 50 mg. He wanted a snack and was provided a peanut butter and jelly sandwich and two juice boxes. He said, lesa.
--- NOTE | 2021-01-25 01:00 | PC.NURSE ---
behavior Pt has been agitated off and on the entire shift. He is paranoid, exhibiting odd behaviors, glancing angrily at rey and people on the unit. Pt isolates in his room, carries on full heated conversations with internal stimuli. Pt verbalized, I saw that fucker, he is in there. VH apparent, pt is hearing multiple voices and believes that people are stealing from him. Pt refuses medications verbally but takes them without thinking when offered at the same incidence. Med nurse notified of pt behavior. Pt carried on like this for several hours, however, pt is beginning to slowly improve, states, He is tired of hearing all this shit, it needs to stop
--- NOTE | 2021-01-25 02:28 | PC.NURSE ---
In bed, sleeping.
--- NOTE | 2021-01-25 04:18 | PC.NURSE ---
Resting Pt is sleeping soundly at this time.
--- NOTE | 2021-01-25 04:19 | PC.NURSE ---
HX/Med Rec Pt has not received been taking medications. Hx of schizophrenia, diabetes type , high cholesterol, non-compliance, violent tendencies w/ intermittent explosions of anger, GERD, and becomes engaged with his AH/VH. No Current home medications taken since Jul 2020
[2021-01-25 06:00] VITALS: BP 126/78; PULSE 97; RESP 18; TEMP 36.7; O2SAT 98
[2021-01-25 14:00] VITALS: BP 170/83; PULSE 95; RESP 16; TEMP 36.8; O2SAT 95
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
[2021-01-25 22:00] VITALS: BP 126/66; PULSE 85; RESP 18; TEMP 36.7; O2SAT 96
--- NOTE | 2021-01-26 00:04 | PC.NURSE ---
Behavior Pt has moments of clarity, interacted with nursing without incident, there is still times that he is DL, interacts with internal stimuli, explosive anger episodes, yells at himself, pt has been resting intermittently Denies si/hi, ah/vh, however, staff witnesses his interaction often with internal stimuli. Mood cycles from confused, anger, and delusionally happy, and back without provocation. staff should maintain appropriate distancing, introduce themselves, reorient pt as needed while being prepared for change of mood. Pt does get red in the face, clenches fists, yells, argues about not taking medication Im not taking that and reaches for it at same time. Pt is not able to follow thru with multi-step instructions, paranoid, and potential for violence does exist. Pt does respond well to gentle, redirection, however, he soon returns to previous state.
--- NOTE | 2021-01-26 03:05 | PC.NURSE ---
Addendum entered by Sierra Olvera RN 01/26/21 03:21: RESET MERCHANDISER, MARLENY Ospina, WAS ABLE TO DE-ESCALATE PT ON HIS OWN, THIS MARKETING ROTATION ASSOCIATE WAS NOT NEEDED AT THIS TIME. PT ACCEPTED MEDICATION FROM MED NURSE. HE IS IN HIS ROOM SITTING QUIETLY AT THIS TIME. Original Note: bEHAVIOR @0200 PT WAS TEARFUL, AND WANTED TO SHOWER, AND DID, SEEMS CONFUSED, REORIENTED, GIVEN A SNACK AND A DRINK NOW.. YELLING, AGITATION NOTED, AH-AND INTERACTION WITH INTERNAL STIMULI NOTED, MED NURSE NOTIFIED, STAFF VISITING WITH PATIENT, MEDICATIONS DISCUSSED AMONG RN'S. VISITING WITH PT, BOTH RN'S WILL ATTEMPT TO DE-ESCALATE PT, RE-ORIENT HIM, AND ATTEMPT TO HELP HIM REST.
[2021-01-26] MEDS: OLANZapine 5 mg ODT PO (03:12)
[2021-01-26] MEDS: hyDROXYzine 25 mg Capsule 50 MG PO (03:12)
[2021-01-26 06:00] VITALS: RESP 17
--- NOTE | 2021-01-26 06:36 | PC.NURSE ---
At 0250 patient was shouting in room. Arguing with no other present. Delusional thoughts of persecution. Zyprexa 5 mg po and Vistaril 50 mg po given at 0312. Positive response over several hours.
[2021-01-26 13:52] VITALS: BP 129/80; PULSE 90; RESP 16; TEMP 36.9; O2SAT 97
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
[2021-01-26] MEDS: ARIPiprazole 30 mg Tablet 15 MG PO (20:41)
[2021-01-26 20:53] VITALS: BP 160/92; PULSE 86; RESP 22; TEMP 36.6; O2SAT 93
[2021-01-26 23:13] LABS: Glucose Point of Care 118 mg/dL (70-110)
[2021-01-27] MEDS: hyDROXYzine 25 mg Capsule 50 MG PO ×2 (00:19→20:40)
[2021-01-27] MEDS: OLANZapine 5 mg ODT PO (00:19)
--- NOTE | 2021-01-27 00:23 | PC.NURSE ---
The patient has been shouting. He has voices arguing. Zyprexa 5mg po and Vistaril 50 mg po given.
[2021-01-27 06:00] VITALS: BP 124/77; PULSE 77; RESP 18; TEMP 36.7; O2SAT 98
[2021-01-27] MEDS: ARIPiprazole 30 mg Tablet 15 MG PO (08:03)
[2021-01-27 14:00] VITALS: BP 149/97; PULSE 110; RESP 18; TEMP 36.8; O2SAT 98
--- NOTE | 2021-01-27 14:23 | PM.NPN ---
Subjective NPU Subjective: Interval history: Kolby presents today reporting that he is doing okay and is hoping to leave. He can be heard multiple doors down the hallway speaking himself in a very emphatic fashion. I entered the room he initially was cordial however we discussed medication and discharge the was clear that he was discharged tomorrow regardless of what I thought. I discussed his apparent psychosis and only him on one of his medications that led to him not being hospitalized for period of time and he was not open to conversation and escalated. He was able to calm down once I left the room but he continued to yell out continued conversation to me about his conceptualization of the plan. Mental Status Exam MSE Comments: This is a overweight versus obese white male in hospital scrubs with limited grooming and eye contact. No abnormal movements except for psychomotor agitation which was significant at times. Semicooperative with exam in mild to moderate distress. Speech was more spontaneous and increased rate and volume. Mood described as okay, I am ready to go, affect annoyed. Thought process organized. Thought content: Patient denied suicidal or homicidal ideation, there were no delusions reported but clear paranoid and persecutory thinking existed, he denied any auditory visual hallucinations but was found talking to himself before I entered the room. Attention and concentration appeared intact and memory was unreliable, but none were formally tested. Alert and oriented x3. Insight and judgment were impaired and impulse control was impaired. Vitals/I&O/Wt Last Vital Signs Temp 98.2 F 01/27/21 14:00 Pulse 110 H 01/27/21 14:00 Resp 18 01/27/21 14:00 BP 149/97 01/27/21 14:00 Pulse Ox 98 01/27/21 14:00 Data NPU : 01/24/21 14:08 01/24/21 14:08 A&P Additional A&P Information (1) Acute psychosis: (2) Decubitus ulcer: (3) Intermittent explosive disorder in adult: (4) Chronic schizophrenia: (5) RACHEAL (generalized anxiety disorder): (6) Cellulitis: (7) Decubitus ulcer, stage 4 with infection: (8) Type 2 diabetes mellitus: (9) GERD (gastroesophageal reflux disease): (10) Parkinsons disease: (11) Anxiety and depression: (12) Hyperlipidemia: (13) Hypertension: (14) Tardive dyskinesia: Additional A&P Information This is a 55-year-old white male with a long history of psychosis and addiction with recent discontinuation of his medications somewhat resistant to treatment on a 96-hour hold. 1. Continue current medication. He is resisting his previous injection, but agreed to restart oral Abilify. 2. Continue every 15 minute checks for safety. 3. Encourage individual, group and milieu therapies. 4. Encourage reconnection with outpatient services. Involuntary Hold Information 96 Hour Hold: 96 Hour Involuntary Admission: Yes 96 Hour Hold Ending Date: 01/30/21 96 Hour Hold Ending Time: 16:50 Attestations NPU Medical Necessity Statement*: Inpatient hospitalization is medically necessary and the clinically appropriate intervention at this time. We will monitor medications and make changes as indicated. Likely length of stay 3 to 5 days. There appears to be a growing likelihood he will need a 21 day hold. Coding Level of Care Code Acute Chief Airport Guide for Royce Montanez
[2021-01-27 20:28] VITALS: BP 125/79; PULSE 93; RESP 21; TEMP 36.4; O2SAT 95
[2021-01-27] MEDS: trazodone 50 mg Tablet PO (20:40)
[2021-01-28 05:55] VITALS: BP 134/81; PULSE 81; RESP 21; TEMP 36.7; O2SAT 97
[2021-01-28 07:16] LABS: Glucose Point of Care 148 mg/dL (70-110)
[2021-01-28] MEDS: ARIPiprazole 30 mg Tablet 15 MG PO (08:34)
--- NOTE | 2021-01-28 08:57 | DCPLANNER ---
IMM not completed due to pt in NPU
[2021-01-28 14:00] VITALS: BP 138/85; PULSE 101; RESP 18; TEMP 36.5; O2SAT 99
--- NOTE | 2021-01-28 16:00 | P.PN_ITS ---
Subjective NPU Subjective: Interval history: Patient presents today continuing to report people have been getting his records and paranoid topics like that period. We once again reviewed his medications in hopes that he might be open to restarting others. He continues to be resistant and we did bring up the possibility of a longer stay but she was not happy about. He continues to refuse restarting an Abilify injection. Mental Status Exam MSE Comments: This is a overweight versus obese white male in hospital scrubs with limited grooming and eye contact. No abnormal movements except for psycho motor agitation which was significant at times. Semicooperative with exam in mild to moderate distress. Speech was more spontaneous and increased rate and volume. Mood described as fine, affect annoyed. Thought process organized. Thought content: Patient denied suicidal or homicidal ideation, there were no delusions reported but clear paranoid and persecutory thinking existed, he denied any auditory visual hallucinations but was found talking to himself before I entered the room. Attention and concentration appeared intact and memory was unreliable, but none were formally tested. Alert and oriented x3. Insight and judgment were impaired and impulse control was impaired. Vitals/I&O/Wt Last Vital Signs Temp 97.7 F 01/28/21 21:08 Pulse 97 01/28/21 21:08 Resp 22 H 01/28/21 21:08 BP 131/92 01/28/21 21:08 Pulse Ox 95 01/28/21 21:08 Data NPU : 01/24/21 14:08 01/24/21 14:08 A&P Additional A&P Information (1) Acute psychosis: (2) Decubitus ulcer: (3) Intermittent explosive disorder in adult: (4) Chronic schizophrenia: (5) RACHEAL (generalized anxiety disorder): (6) Cellulitis: (7) Decubitus ulcer, stage 4 with infection: (8) Type 2 diabetes mellitus: (9) GERD (gastroesophageal reflux disease): (10) Parkinsons disease: (11) Anxiety and depression: (12) Hyperlipidemia: (13) Hypertension: (14) Tardive dyskinesia: Additional A&P Information This is a 55-year-old white male with a long history of psychosis and addiction with recent discontinuation of his medications somewhat resistant to treatment on a 96-hour hold. 1. Continue current medication. We will continue to encourage on restarting his medication. 2. Continue every 15 minute checks for safety. 3. Encourage individual, group and milieu therapies. 4. Encourage reconnection with outpatient services. Involuntary Hold Information 96 Hour Hold: 96 Hour Involuntary Admission: Yes 96 Hour Hold Ending Date: 01/30/21 96 Hour Hold Ending Time: 16:50 Attestations NPU Medical Necessity Statement*: Inpatient hospitalization is medically necessary and the clinically appropriate intervention at this time. We will monitor medications and make changes as indicated. Likely length of stay 3 to 5 days. There appears to be a growing likelihood he will need a 21 day hold. Coding Level of Care Code Acute Gang Hemstitching Machine Operator for Royce Montanez
[2021-01-28 21:08] VITALS: BP 131/92; PULSE 97; RESP 22; TEMP 36.5; O2SAT 95
[2021-01-29 06:00] VITALS: BP 127/70; PULSE 77; RESP 20; TEMP 36.8; O2SAT 98
[2021-01-29] MEDS: ARIPiprazole 30 mg Tablet 15 MG PO (09:07)
[2021-01-29] MEDS: ARIPiprazole 10 mg Tablet 5 MG PO (11:24)
--- NOTE | 2021-01-29 11:31 | DCPLANNER ---
IMM not completed due to pt having paranoia and in NPU
[2021-01-29 14:00] VITALS: BP 126/72; PULSE 73; RESP 16; TEMP 36.3; O2SAT 97
--- NOTE | 2021-01-29 15:44 | PC.NUTR ---
Nutrition assessment completed for 5day LOS. Noted chewing/swallowing difficulty per admission assessment, and stage 4 decubitus ulcer per H&P. Called unit regarding chewing/swallowing difficulty, and staff report pt is edentulous but tolerating diet well with no aspiration risk. Also spoke with nurse regarding stage 4 decub noted in physician's notes. Nurse to call this RD back with further information. No dietary changes warranted at this time, however will follow up as appropriate. See RD assessment for further details.
--- NOTE | 2021-01-29 16:49 | PC.NURSE ---
Danyelle from [facility] was questioning if patient had a pressure ulcer. Patient has an area under his left buttocks that is an old pressure injury. [facility] was [facility]. The area is indented but appears healed. Patient has no C/O of pain or tenderness in the area.
--- NOTE | 2021-01-29 17:58 | PM.NPN ---
Subjective NPU Subjective: Interval history: Kolby presents today reporting that he is doing okay. We discussed the risk-benefit alternatives of increasing his Abilify as well as reviewing charts and possibly starting his other medications. Today he was at least more open to considering the other medications and understood to be proceed as is documented in this note. Reports of possible slight diminishing in his talking to himself and he was less animated in his talking to himself as the room was approached. Mental Status Exam MSE Comments: This is a overweight versus obese white male in hospital scrubs with limited grooming and eye contact. No abnormal movements except for psychomotor agitation which was significant at times. Semicooperative with exam in mild distress. Speech was more spontaneous and increased rate and volume. Mood described as fine, affect less annoyed. Thought process organized. Thought content: Patient denied suicidal or homicidal ideation, there were no delusions reported but clear paranoid and persecutory thinking existed, he denied any auditory visual hallucinations but was found talking to himself before I entered the room. Attention and concentration appeared intact and memory was unreliable, but none were formally tested. Alert and oriented x3. Insight and judgment were impaired and impulse control was impaired. Vitals/I&O/Wt Last Vital Signs Temp 99.3 F 01/29/21 20:15 Pulse 103 H 01/29/21 20:15 Resp 21 H 01/29/21 20:15 BP 120/82 01/29/21 20:15 Pulse Ox 98 01/29/21 20:15 Data NPU : 01/24/21 14:08 01/24/21 14:08 A&P Additional A&P Information (1) Acute psychosis: (2) Decubitus ulcer: (3) Intermittent explosive disorder in adult: (4) Chronic schizophrenia: (5) RACHEAL (generalized anxiety disorder): (6) Cellulitis: (7) Decubitus ulcer, stage 4 with infection: (8) Type 2 diabetes mellitus: (9) GERD (gastroesophageal reflux disease): (10) Parkinsons disease: (11) Anxiety and depression: (12) Hyperlipidemia: (13) Hypertension: (14) Tardive dyskinesia: Additional A&P Information This is a 55-year-old white male with a long history of psychosis and addiction with recent discontinuation of his medications somewhat resistant to treatment on a 96-hour hold. 1. Continue current medication. We will continue to encourage on restarting his medication and increase Abilify to 20 mg p.o. every morning. 2. Continue every 15 minute checks for safety. 3. Encourage individual, group and milieu therapies. 4. Encourage reconnection with outpatient services. Involuntary Hold Information 96 Hour Hold: 96 Hour Involuntary Admission: Yes 96 Hour Hold Ending Date: 01/30/21 96 Hour Hold Ending Time: 16:50 Attestations NPU Medical Necessity Statement*: Inpatient hospitalization is medically necessary and the clinically appropriate intervention at this time. We will monitor medications and make changes as indicated. Likely length of stay 3 to 5 days. The 21 day hold paperwork was filed. Coding Level of Care Code Acute Welding Pantograph Machine Operator for Royce Montanez
[2021-01-29 20:15] VITALS: BP 120/82; PULSE 103; RESP 21; TEMP 37.4; O2SAT 98
[2021-01-29] MEDS: hyDROXYzine 25 mg Capsule 50 MG PO (23:25)
[2021-01-29] MEDS: OLANZapine 5 mg ODT PO (23:26)
--- NOTE | 2021-01-29 23:26 | PC.NURSE ---
Patient is acutely psychotic and agitated. Zyprexa 5mg PO and Vistaril 50 mg PO given.
--- NOTE | 2021-01-30 02:14 | PC.NURSE ---
behavior Pt up at nurses desk, demanding phone numbers, feels like his phone was stolen, and yelling in his room. Very delusional, pt has had visteril and zyprexa with some mellowing of symptoms but they are not completely subdued. med nurse notified of possibility of medication necessity if pt continues to escalate.
[2021-01-30 06:00] VITALS: BP 122/66; PULSE 78; RESP 21; TEMP 36.7; O2SAT 96
--- NOTE | 2021-01-30 06:28 | PC.NURSE ---
Aggressive behavior Nurse was rounding, patient in his room yelled, he has experienced AH/VH all evening, very few power naps included. Pt is guarded most of the time. He has not been difficult to redirect but he is has increased in intensity of his actions. Pt picked up the bed and box frame about 6-8 inches from the floor with one arm with intent to throw it toward the window. Nurse got his attention from the hallway, temporarily pt calmed, went to the window grasping the base until his knuckles were white, stood unresponsive while nurses attempted to redirect and help pt calm himself. Pt refused to speak, nurse allowed him to calm down, attempted to bring him something to drink, and get him to interact without much success. However, pt did use manners at that time, replying to this with a no thank you.
[2021-01-30] MEDS: ARIPiprazole 10 mg Tablet 20 MG PO (08:43)
[2021-01-30 13:55] VITALS: BP 123/77; PULSE 93; RESP 18; TEMP 36.3; O2SAT 98
--- NOTE | 2021-01-30 18:57 | PM.NPN ---
Subjective NPU Subjective: Interval history: Kolby did not have any lingering anger from the 21-day hold paperwork. We discussed the fact that we would not keep him any longer that he needed to be here but we need to get him reestablished on his medication for him to be safe for discharge and we needed to determine where he would be discharged. He did not have any questions or concerns. Mental Status Exam MSE Comments: This is a overweight versus obese white male in hospital scrubs with limited grooming and eye contact. No abnormal movements except for psychomotor agitation which was significant at times. Semicooperative with exam in mild distress. Speech was more spontaneous and increased rate and volume. Mood described as OK, affect a little brighter. Thought process organized. Thought content: Patient denied suicidal or homicidal ideation, there were no delusions reported but clear paranoid and persecutory thinking existed, he denied any auditory visual hallucinations but was doing less animated self talk. Attention and concentration appeared intact and memory was unreliable, but none were formally tested. Alert and oriented x3. Insight and judgment were impaired and impulse control was impaired. Vitals/I&O/Wt Last Vital Signs Temp 97.3 F L 01/30/21 13:55 Pulse 93 01/30/21 13:55 Resp 16 01/30/21 21:42 BP 123/77 01/30/21 13:55 Pulse Ox 98 01/30/21 13:55 Data NPU : 01/24/21 14:08 01/24/21 14:08 A&P Additional A&P Information (1) Acute psychosis: (2) Decubitus ulcer: (3) Intermittent explosive disorder in adult: (4) Chronic schizophrenia: (5) RACHEAL (generalized anxiety disorder): (6) Cellulitis: (7) Decubitus ulcer, stage 4 with infection: (8) Type 2 diabetes mellitus: (9) GERD (gastroesophageal reflux disease): (10) Parkinsons disease: (11) Anxiety and depression: (12) Hyperlipidemia: (13) Hypertension: (14) Tardive dyskinesia: Additional A&P Information This is a 55-year-old white male with a long history of psychosis and addiction with recent discontinuation of his medications somewhat resistant to treatment on a 96-hour hold. 1. Continue current medication. We will continue to encourage on restarting his medication and increase Abilify to 20 mg p.o. every morning. 2. Continue every 15 minute checks for safety. 3. Encourage individual, group and milieu therapies. 4. Encourage reconnection with outpatient services. Involuntary Hold Information 96 Hour Hold: 96 Hour Involuntary Admission: Yes 96 Hour Hold Ending Date: 01/30/21 96 Hour Hold Ending Time: 16:50 Attestations NPU Medical Necessity Statement*: Inpatient hospitalization is medically necessary and the clinically appropriate intervention at this time. We will monitor medications and make changes as indicated. Likely length of stay 6-10 days. The 21 day hold hearing tomorrow. Coding Level of Care Code Acute Director Translation for Royce Montanez
[2021-01-30 21:42] VITALS: RESP 16
--- NOTE | 2021-01-30 23:17 | PC.NURSE ---
delusional/yelling Yelling and angry conversation can be heard from the nurses station echoing down the hallway, pt is delusional, experiencing AH/VH. He is interacting with the voices continuously, med nurse and charge have been down to room to attempt to de-escalate this pt behavior/
[2021-01-31 06:00] VITALS: BP 129/94; PULSE 80; RESP 18; TEMP 37.2; O2SAT 98
[2021-01-31] MEDS: ARIPiprazole 10 mg Tablet 20 MG PO (08:50)
--- NOTE | 2021-01-31 12:23 | PM.NPN ---
Subjective NPU Subjective: Interval history: Kolby presents today reporting that he has not been to be placed in some location recently when he wants to and was very demonstrative in that discussion. Otherwise he was receptive to this insurance underwriter sales's report of which the stated on the stand. But ultimately we got to the court room he stipulated to a 21-day hold. We discussed the fact that we really need to be stable on medication and consider restarting the injection. His sister called and expressed the family concerns that since he stopped being able to live with his mom that he needs a place that is going to monitor and support his adherence with medication. Mental Status Exam MSE Comments: This is a overweight versus obese white male in hospital scrubs with limited grooming and eye contact. No abnormal movements except for psychomotor retardation with occasional moments of agitation which are diminishing. More cooperative with exam in occasional distress. Speech was more spontaneous and increased rate and volume. Mood described as OK, affect a little brighter. Thought process organized. Thought content: Patient denied suicidal or homicidal ideation, there were no delusions reported but clear paranoid and persecutory thinking existed, he denied any auditory visual hallucinations but was doing less animated self talk. Attention and concentration appeared intact and memory was unreliable, but none were formally tested. Alert and oriented x3. Insight and judgment were impaired and impulse control was impaired. Vitals/I&O/Wt Last Vital Signs Temp 98.9 F 01/31/21 06:00 Pulse 80 01/31/21 06:00 Resp 18 01/31/21 06:00 BP 129/94 01/31/21 06:00 Pulse Ox 98 01/31/21 06:00 Data NPU : 01/24/21 14:08 01/24/21 14:08 A&P Additional A&P Information (1) Acute psychosis: (2) Decubitus ulcer: (3) Intermittent explosive disorder in adult: (4) Chronic schizophrenia: (5) RACHEAL (generalized anxiety disorder): (6) Cellulitis: (7) Decubitus ulcer, stage 4 with infection: (8) Type 2 diabetes mellitus: (9) GERD (gastroesophageal reflux disease): (10) Parkinsons disease: (11) Anxiety and depression: (12) Hyperlipidemia: (13) Hypertension: (14) Tardive dyskinesia: Additional A&P Information This is a 55-year-old white male with a long history of psychosis and addiction with recent discontinuation of his medications somewhat resistant to treatment on a 96-hour hold. 1. Continue current medication. 2. Continue every 15 minute checks for safety. 3. Encourage individual, group and milieu therapies. 4. Encourage reconnection with outpatient services. Involuntary Hold Information 96 Hour Hold: 96 Hour Involuntary Admission: Yes 96 Hour Hold Ending Date: 01/30/21 96 Hour Hold Ending Time: 16:50 Attestations NPU Medical Necessity Statement*: Inpatient hospitalization is medically necessary and the clinically appropriate intervention at this time. We will monitor medications and make changes as indicated. Likely length of stay 6-10 days. Patient is on 21-day hold. Coding Level of Care Code Acute Deicer Element Winder Machine for Royce Montanez
[2021-01-31 14:00] VITALS: BP 124/75; PULSE 63; RESP 18; TEMP 36.6; O2SAT 97
[2021-01-31 20:13] VITALS: BP 122/85; PULSE 82; RESP 18; TEMP 37.2; O2SAT 94
[2021-02-01 06:00] VITALS: BP 120/76; PULSE 74; RESP 18; TEMP 36.8; O2SAT 97
[2021-02-01] MEDS: ARIPiprazole 10 mg Tablet 20 MG PO (09:12)
[2021-02-01 14:00] VITALS: BP 120/76; PULSE 74; RESP 18; TEMP 36.8; O2SAT 97
[2021-02-01 15:34] VITALS: BP 128/85; PULSE 92; RESP 18; TEMP 36.6; O2SAT 96
--- NOTE | 2021-02-01 17:19 | PM.NPN ---
Subjective NPU Subjective: Interval history: Kolby presents today fairly pleasant given the 21-day hold initiated yesterday. He was reporting that he is eating and sleeping well and denied really articulate what he would change as far as treatment plan. We discussed again the fact that [facility] comfortable with discharge to the likely need for a long-acting injection or some kind of a controlled facility to make sure gets his medication. He is not having reports of volatility in general from the nurses. He denies any pressing issues. Mental Status Exam MSE Comments: This is a overweight versus obese white male in hospital scrubs with limited grooming and eye contact. No abnormal movements except for psychomotor retardation with decreasing moments of agitation. More cooperative with exam in no acute distress. Speech was more spontaneous and normal rate and volume. Mood described as OK, affect a little brighter. Thought process organized. Thought content: Patient denied suicidal or homicidal ideation, there were no delusions reported and lessening paranoid and persecutory thinking existed, he denied any auditory or visual hallucinations. Attention and concentration appeared intact and memory was unreliable, but none were formally tested. He was alert and oriented x3. Insight and judgment were impaired and impulse control was limited and improving. Vitals/I&O/Wt Last Vital Signs Temp 97.8 F 02/01/21 15:34 Pulse 92 02/01/21 15:34 Resp 18 02/01/21 15:34 BP 128/85 02/01/21 15:34 Pulse Ox 96 02/01/21 15:34 Data NPU : 01/24/21 14:08 01/24/21 14:08 A&P Additional A&P Information (1) Acute psychosis: (2) Decubitus ulcer: (3) Intermittent explosive disorder in adult: (4) Chronic schizophrenia: (5) RACHEAL (generalized anxiety disorder): (6) Cellulitis: (7) Decubitus ulcer, stage 4 with infection: (8) Type 2 diabetes mellitus: (9) GERD (gastroesophageal reflux disease): (10) Parkinsons disease: (11) Anxiety and depression: (12) Hyperlipidemia: (13) Hypertension: (14) Tardive dyskinesia: Additional A&P Information This is a 55-year-old white male with a long history of psychosis and addiction with recent discontinuation of his medications somewhat resistant to treatment on a 96-hour hold. 1. Continue current medication. 2. Continue every 15 minute checks for safety. 3. Encourage individual, group and milieu therapies. 4. Encourage reconnection with outpatient services. Involuntary Hold Information 96 Hour Hold: 96 Hour Involuntary Admission: Yes 96 Hour Hold Ending Date: 01/30/21 96 Hour Hold Ending Time: 16:50 Attestations NPU Medical Necessity Statement*: Inpatient hospitalization is medically necessary and the clinically appropriate intervention at this time. We will monitor medications and make changes as indicated. Likely length of stay 6-10 days. Patient is on 21-day hold. Coding Level of Care Code Acute [employer] Certified Network Professional for Royce Montanez
[2021-02-01 20:50] VITALS: BP 122/73; PULSE 81; RESP 18; TEMP 36.7; O2SAT 99
[2021-02-02 06:00] VITALS: BP 134/84; PULSE 80; RESP 18; TEMP 36.7; O2SAT 96
[2021-02-02] MEDS: ARIPiprazole 10 mg Tablet 20 MG PO (07:45)
[2021-02-02 14:00] VITALS: BP 138/85; PULSE 71; RESP 18; TEMP 36.8; O2SAT 97
--- NOTE | 2021-02-02 20:02 | P.PN_ITS ---
Subjective NPU Subjective: Interval history: Kolby presented today reporting that he is willing to start taking his previous medication as he wants to get out of here as soon as possible. He was once again clear that he does not want to take the long-acting injectable but we did discuss the fact that outside of a controlled dispensing environment we have great reticence about him not being on the injectable. He gave us the pharmacy that he thought he was going to and so far the best we come up with was that maybe he was also on Risperdal. We will work with the treatment team to make sure we have his most recent medication regimen and talk to provider see if that seems a reasonable direction to go we discussed. Mental Status Exam MSE Comments: This is a overweight versus obese white male in hospital scrubs with limited grooming and eye contact. No abnormal movements except for mild ps ychomotor retardation. More cooperative with exam in no acute distress. Speech was more spontaneous and normal rate and volume. Mood described as OK, affect a little brighter. Thought process organized. Thought content: Patient denied suicidal or homicidal ideation, there were no delusions reported and lessening paranoid and persecutory thinking existed, he denied any auditory or visual hallucinations. Attention and concentration appeared intact and memory was appearing more reliable, but none were formally tested. He was alert and oriented x3. Insight and judgment were impaired and impulse control was limited and improving. Vitals/I&O/Wt Last Vital Signs Temp 98.2 F 02/02/21 14:00 Pulse 71 02/02/21 14:00 Resp 18 02/02/21 14:00 BP 138/85 02/02/21 14:00 Pulse Ox 97 02/02/21 14:00 Weight last 48 hrs Weight 97.522 kg Data NPU : 01/24/21 14:08 01/24/21 14:08 A&P Additional A&P Information (1) Acute psychosis: (2) Decubitus ulcer: (3) Intermittent explosive disorder in adult: (4) Chronic schizophrenia: (5) RACHEAL (generalized anxiety disorder): (6) Cellulitis: (7) Decubitus ulcer, stage 4 with infection: (8) Type 2 diabetes mellitus: (9) GERD (gastroesophageal reflux disease): (10) Parkinsons disease: (11) Anxiety and depression: (12) Hyperlipidemia: (13) Hypertension: (14) Tardive dyskinesia: Additional A&P Information This is a 55-year-old white male with a long history of psychosis and addiction with recent discontinuation of his medications somewhat resistant to treatment on a 96-hour hold. 1. Continue current medication. 2. Continue every 15 minute checks for safety. 3. Encourage individual, group and milieu therapies. 4. Encourage reconnection with outpatient services. 5. We will reach out to his last provider. Involuntary Hold Information 96 Hour Hold: 96 Hour Involuntary Admission: Yes 96 Hour Hold Ending Date: 01/30/21 96 Hour Hold Ending Time: 16:50 Attestations NPU Medical Necessity Statement*: Inpatient hospitalization is medically necessary and the clinically appropriate intervention at this time. We will monitor medications and make changes as indicated. Likely length of stay 5-9 days. Patient is on 21-day hold. Coding Level of Care Code Acute Film Or Videotape Editor for Royce Montanez
[2021-02-02 20:54] LABS: Glucose Point of Care 103 mg/dL (70-110)
[2021-02-02 22:00] VITALS: BP 142/90; PULSE 82; RESP 20; TEMP 36.9; O2SAT 97
[2021-02-03 06:00] VITALS: BP 122/76; PULSE 76; RESP 20; TEMP 36.8; O2SAT 96
[2021-02-03] MEDS: ARIPiprazole 10 mg Tablet 20 MG PO (08:14)
[2021-02-03 14:00] VITALS: BP 116/71; PULSE 91; RESP 20; TEMP 36.2; O2SAT 94
--- NOTE | 2021-02-03 17:10 | PM.NPN ---
Subjective NPU Subjective: Interval history: Kolby presents today reporting that he continues to be open to taking medications as long does not in an injection form. We discussed that the treatment team is trying all of his provider at [facility] to get a sense of what they were trying to accomplish with him and what the purpose of the prescribed Risperdal was given that it does appear that he picked it up and is unsure whether they were trying to transfer him over to a different injection or coadministered the Risperdal and Abilify. He continues to report feeling better on the Abilify and endorsing he was taking oral medication but his history of adherence is clearly limited. Mental Status Exam MSE Comments: This is a overweight versus obese white male in hospital scrubs with improving grooming and eye contact. No abnormal movements except for mild psychomotor retardation, which is resolving. More cooperative with exam in no acute distress. Speech was more spontaneous and normal rate and volume. Mood described as better, affect a little brighter. Thought process organized. Thought content: Patient denied suicidal or homicidal ideation, there were no delusions reported and lessening paranoid and persecutory thinking existed, he denied any auditory or visual hallucinations. Attention and concentration appeared intact and memory was appearing more reliable, but none were formally tested. He was alert and oriented x3. Insight and judgment were limited, but improving and impulse control was limited and improving. Vitals/I&O/Wt Last Vital Signs Temp 98.8 F 02/03/21 22:00 Pulse 95 02/03/21 22:00 Resp 15 02/03/21 22:00 BP 146/88 02/03/21 22:00 Pulse Ox 95 02/03/21 22:00 Data NPU : 01/24/21 14:08 01/24/21 14:08 A&P Additional A&P Information (1) Acute psychosis: (2) Decubitus ulcer: (3) Intermittent explosive disorder in adult: (4) Chronic schizophrenia: (5) RACHEAL (generalized anxiety disorder): (6) Cellulitis: (7) Decubitus ulcer, stage 4 with infection: (8) Type 2 diabetes mellitus: (9) GERD (gastroesophageal reflux disease): (10) Parkinsons disease: (11) Anxiety and depression: (12) Hyperlipidemia: (13) Hypertension: (14) Tardive dyskinesia: Additional A&P Information This is a 55-year-old white male with a long history of psychosis and addiction with recent discontinuation of his medications somewhat resistant to treatment on a 96-hour hold. 1. Continue current medication. 2. Continue every 15 minute checks for safety. 3. Encourage individual, group and milieu therapies. 4. Encourage reconnection with outpatient services. 5. We will reach out to his last provider. Involuntary Hold Information 96 Hour Hold: 96 Hour Involuntary Admission: Yes 96 Hour Hold Ending Date: 01/30/21 96 Hour Hold Ending Time: 16:50 Attestations NPU Medical Necessity Statement*: Inpatient hospitalization is medically necessary and the clinically appropriate intervention at this time. We will monitor medications and make changes as indicated. Likely length of stay 4-8 days. Patient is on 21-day hold. Coding Level of Care Code Acute Batteryman for Royce Montanez
[2021-02-03 22:00] VITALS: BP 146/88; PULSE 95; RESP 15; TEMP 37.1; O2SAT 95
[2021-02-04 06:00] VITALS: BP 134/88; PULSE 78; RESP 16; TEMP 36.4; O2SAT 99
[2021-02-04] MEDS: ARIPiprazole 10 mg Tablet 20 MG PO (07:37)
[2021-02-04 14:00] VITALS: BP 146/88; PULSE 93; RESP 20; TEMP 36; O2SAT 98
--- NOTE | 2021-02-04 16:55 | PM.NPN ---
Subjective NPU Subjective: Interval history: Kolby presents today remaining calm and more communicative. He continues to be resistant to getting an Abilify injection which would treat him much greater sense of safety after discharge. He is denying any major concerns and continues to report improvement in his thinking. Mental Status Exam MSE Comments: This is a overweight versus obese white male in hospital scrubs with improving grooming and eye contact. No abnormal movements except for resolving psychomotor retardation. More cooperative with exam in no acute distress. Speech was more spontaneous and normal rate and volume. Mood described as better, affect a little brighter. Thought process organized. Thought content: Patient denied suicidal or homicidal ideation, there were no delusions reported and lessening paranoid and persecutory thinking existed, he denied any auditory or visual hallucinations. Attention and concentration appeared intact and memory was appearing more reliable, but none were formally tested. He was alert and oriented x3. Insight and judgment were limited, but improving and impulse control was limited and improving. Vitals/I&O/Wt Last Vital Signs Temp 98.8 F 02/04/21 20:34 Pulse 85 02/04/21 20:34 Resp 15 02/04/21 20:34 BP 131/82 02/04/21 20:34 Pulse Ox 97 02/04/21 20:34 Data NPU : 01/24/21 14:08 01/24/21 14:08 A&P Additional A&P Information (1) Acute psychosis: (2) Decubitus ulcer: (3) Intermittent explosive disorder in adult: (4) Chronic schizophrenia: (5) RACHEAL (generalized anxiety disorder): (6) Cellulitis: (7) Decubitus ulcer, stage 4 with infection: (8) Type 2 diabetes mellitus: (9) GERD (gastroesophageal reflux disease): (10) Parkinsons disease: (11) Anxiety and depression: (12) Hyperlipidemia: (13) Hypertension: (14) Tardive dyskinesia: Additional A&P Information This is a 55-year-old white male with a long history of psychosis and addiction with recent discontinuation of his medications somewhat resistant to treatment on a 96-hour hold. 1. Continue current medication. 2. Continue every 15 minute checks for safety. 3. Encourage individual, group and milieu therapies. 4. Encourage reconnection with outpatient services. 5. We will reach out to his last provider. Involuntary Hold Information 96 Hour Hold: 96 Hour Involuntary Admission: Yes 96 Hour Hold Ending Date: 01/30/21 96 Hour Hold Ending Time: 16:50 Attestations NPU Medical Necessity Statement*: Inpatient hospitalization is medically necessary and the clinically appropriate intervention at this time. We will monitor medications and make changes as indicated. Likely length of stay 3-7 days. Patient is on 21-day hold. Coding Level of Care Code Acute Atmospheric Sciences Professor for Royce Montanez
[2021-02-04 20:34] VITALS: BP 131/82; PULSE 85; RESP 15; TEMP 37.1; O2SAT 97
[2021-02-05 06:00] VITALS: BP 126/75; PULSE 69; RESP 16; TEMP 36.6; O2SAT 96
[2021-02-05] MEDS: ARIPiprazole 10 mg Tablet 20 MG PO (09:11)
[2021-02-05 14:00] VITALS: BP 123/74; PULSE 86; RESP 18; TEMP 36.2; O2SAT 96
--- NOTE | 2021-02-05 17:33 | PM.NPN ---
Subjective NPU Subjective: Interval history: Presents today reporting that he is feeling better. Talked some about possibility of a long-acting injectable which he is still resistant to. We discussed the reason why his providers feel much more confident in his wellbeing if he had the injection. Continuing to have slow, steady progress. Still isolating but eating and sleeping well. Mental Status Exam MSE Comments: This is a overweight versus obese white male in hospital scrubs with improving grooming and eye contact. No abnormal movements except for resolving psychomotor retardation. More cooperative with exam in no acute distress. Speech was more spontaneous and normal rate and volume. Mood described as okay, affect congruent. Thought process organized. Thought content: Patient denied suicidal or homicidal ideation, there were no delusions reported and lessening paranoid and persecutory thinking existed, he denied any auditory or visual hallucinations. Attention and concentration appeared intact and memory was appearing more reliable, but none were formally tested. He was alert and oriented x3. Insight and judgment were limited, but improving and impulse control was limited and improving. Vitals/I&O/Wt Last Vital Signs Temp 97.6 F 02/05/21 20:58 Pulse 100 02/05/21 20:58 Resp 18 02/05/21 20:58 BP 125/84 02/05/21 20:58 Pulse Ox 95 02/05/21 20:58 Data NPU : 01/24/21 14:08 01/24/21 14:08 A&P Additional A&P Information (1) Acute psychosis: (2) Decubitus ulcer: (3) Intermittent explosive disorder in adult: (4) Chronic schizophrenia: (5) RACHEAL (generalized anxiety disorder): (6) Cellulitis: (7) Decubitus ulcer, stage 4 with infection: (8) Type 2 diabetes mellitus: (9) GERD (gastroesophageal reflux disease): (10) Parkinsons disease: (11) Anxiety and depression: (12) Hyperlipidemia: (13) Hypertension: (14) Tardive dyskinesia: Additional A&P Information This is a 55-year-old white male with a long history of psychosis and addiction with recent discontinuation of his medications somewhat resistant to treatment on a 96-hour hold. 1. Continue current medication. 2. Continue every 15 minute checks for safety. 3. Encourage individual, group and milieu therapies. 4. Encourage reconnection with outpatient services. 5. Awaiting conversation with his provider outpatient. Involuntary Hold Information 96 Hour Hold: 96 Hour Involuntary Admission: Yes 96 Hour Hold Ending Date: 01/30/21 96 Hour Hold Ending Time: 16:50 Attestations NPU Medical Necessity Statement*: Inpatient hospitalization is medically necessary and the clinically appropriate intervention at this time. We will monitor medications and make changes as indicated. Likely length of stay 2-6 days. Patient is on 21-day hold. Coding Level of Care Code Acute Certification Officer for Royce Montanez
[2021-02-05 20:55] LABS: Glucose Point of Care 112 mg/dL (70-110)
[2021-02-05 20:58] VITALS: BP 125/84; PULSE 100; RESP 18; TEMP 36.4; O2SAT 95
[2021-02-06 05:56] VITALS: BP 158/94; PULSE 72; RESP 15; TEMP 37; O2SAT 98
--- NOTE | 2021-02-06 08:33 | DCPLANNER ---
IMM not completed due to pt on [address] hold
[2021-02-06] MEDS: ARIPiprazole 10 mg Tablet 20 MG PO (09:23)
[2021-02-06 14:00] VITALS: BP 144/96; PULSE 92; RESP 18; TEMP 36.9; O2SAT 93
--- NOTE | 2021-02-06 14:07 | PM.NPN ---
Subjective NPU Subjective: Interval history: Continues to report some paranoia, continues to state he has no interest in long-acting injection of Abilify Reports being compliant with his medication and denies any medication side effects Denies any interval mood symptoms, denies any suicidal ideation Mental Status Exam MSE Comments: Lying in bed, bearded, wearing hospital scrubs, calm, cooperative, polite, interactive Psychomotor activity is neither increased nor decreased, no agitation Speech is normal rate and volume, spontaneous, clear articulation, not pressured I feel good, congruent affect, not labile Alert and oriented to person, place, time Memory and concentration appear to be fair to intact per interview Thought process, linear, no flight of ideas, no looseness of associations Thought content, some paranoia, does not appear to be attending to any internal stimuli, no suicidal or homicidal ideation Insight and judgment appear to be fair Vitals/I&O/Wt Last Vital Signs Temp 98.6 F 02/06/21 05:56 Pulse 72 02/06/21 05:56 Resp 15 02/06/21 05:56 BP 158/94 02/06/21 05:56 Pulse Ox 98 02/06/21 05:56 Data NPU : 01/24/21 14:08 01/24/21 14:08 A&P Assessment and plan (1) Schizophrenia: Status: Resolved Qualifiers: Schizophrenia type: paranoid schizophrenia Qualified Code(s): F20.0 - Paranoid schizophrenia (2) Intermittent explosive disorder in adult: Status: Acute Additional A&P Information Patient with no reported interval behavioral disturbances, continues to be compliant with oral medication although he continues to refuse long-acting injection, continues to have some paranoia CONTINUE current medication, continue to monitor Involuntary Hold Information 96 Hour Hold: 96 Hour Involuntary Admission: Yes 96 Hour Hold Ending Date: 01/30/21 96 Hour Hold Ending Time: 16:50 Attestations NPU Medical Necessity Statement*: Continues to require psychiatric hospitalization for medication stabilization, coordination for safe discharge Coding Level of Care Code Acute Adding Machine Mechanic for Royce Fwxavi Diagnoses Schizophrenia F20.0 Schizophrenia type: paranoid schizophrenia Intermittent explosive disorder in adult F63.81
[2021-02-06] MEDS: fluoxetine 20 mg Capsule PO (14:49)
[2021-02-06 20:46] VITALS: BP 102/66; PULSE 86; RESP 16; TEMP 36.7; O2SAT 95
--- NOTE | 2021-02-07 01:53 | PC.NURSE ---
PM ASSESSMENT PT DENIES SI/HI, DENIES PAIN, DENIES VH, AND HAS INTERACTED WITH INTERNAL STIMULI LESS THIS EVENING THAN IN PREVIOUS EVENING SHIFTS. PT IS HELPFUL, COOPERATIVE WITH STAFF, AND IS EASY TO REDIRECT WITH FEWER EPISODES OF ANGRY OUTBURSTS. THERE HAS NOT BEEN ANY EPISODES OF YELLING THIS EVENING, CONTINUED TO KEEP PT IN A CLOSED PT ROOM. PT IS EASY TO TALK TO , MAKES HIS REQUESTS KNOWN VERBALLY. HE HAS ISOLATED LESS. PT IS NOT DEMANDING PHONE NUMBERS OR RECORDS TONIGHT. HE SEEMS IN A GENERALLY BETTER MOOD. TONIGHT HER VERBALIZED THAT HE MISSES HOME. HIS GAZE IS MORE EXPRESSIVE AND HIS THOUGHTS ARE LESS OBSESSIVE. THERE IS A BIG IMPROVEMENT IN THIS PATIENT SINCE HE WAS ADMITTED.
[2021-02-07 06:00] VITALS: BP 116/75; PULSE 80; RESP 17; TEMP 36.9; O2SAT 96
[2021-02-07] MEDS: fluoxetine 20 mg Capsule PO (10:09)
[2021-02-07] MEDS: ARIPiprazole 10 mg Tablet 20 MG PO (10:09)
--- NOTE | 2021-02-07 13:08 | P.PN_ITS ---
Subjective NPU Subjective: Interval history: Continues reports some improvement, denies any interval mood symptoms Continues to report some paranoia Denies any auditory or visual hallucinations Denies any interval suicidal ideation or thoughts about self-harm Per staff report no interval behavioral disturbances Mental Status Exam MSE Comments: Standing in the hallway, appropriately groomed and dressed, calm, cooperative, polite, interactive Psychomotor activity is neither increased nor decreased, no agitation Speech is normal rate and volume, spontaneous, clear articulation, not pressured I feel okay, congruent affect, not labile Alert and oriented to person, place, time Memory and concentration appear to be fair to intact per interview Thought process, linear, no flight of ideas, no looseness of associations Thought content, some paranoia, does not appear to be attending to any internal stimuli, no suicidal or homicidal ideation Insight and judgment appear to be fair Vitals/I&O/Wt Last Vital Signs Temp 98.4 F 02/07/21 06:00 Pulse 80 02/07/21 06:00 Resp 17 02/07/21 06:00 BP 116/75 02/07/21 06:00 Pulse Ox 96 02/07/21 06:00 Data NPU : 01/24/21 14:08 01/24/21 14:08 A&P Assessment and plan (1) Schizophrenia: Status: Resolved Qualifiers: Schizophrenia type: paranoid schizophrenia Qualified Code(s): F20.0 - Paranoid schizophrenia (2) Anxiety and depression: Status: Acute Additional A&P Information No interval changes, some paranoia CONTINUE current medication, continue to monitor Involuntary Hold Information 96 Hour Hold: 96 Hour Involuntary Admission: Yes 96 Hour Hold Ending Date: 01/30/21 96 Hour Hold Ending Time: 16:50 Attestations NPU Medical Necessity Statement*: Continues to require psychiatric hospitalization for medication stabilization Coding Level of Care Code Acute Crushing Machine Operator for [facility] Diagnoses Schizophrenia F20.0 Schizophrenia type: paranoid schizophrenia Anxiety and depression F41.9; F32.9
[2021-02-07 14:00] VITALS: BP 119/75; PULSE 81; RESP 17; TEMP 36.9; O2SAT 95
[2021-02-07 20:00] VITALS: BP 109/74; PULSE 76; RESP 17; TEMP 36.6; O2SAT 96
[2021-02-08 06:00] VITALS: BP 151/86; PULSE 82; RESP 17; TEMP 36.7; O2SAT 95
[2021-02-08] MEDS: fluoxetine 20 mg Capsule PO (09:03)
[2021-02-08] MEDS: ARIPiprazole 10 mg Tablet 20 MG PO (09:03)
--- NOTE | 2021-02-08 12:11 | P.PN_ITS ---
Subjective NPU Subjective: Interval history: Denies any interval complaints Reports no interval mood symptoms, no depressive symptoms, no irritability, no suicidal ideation Denies any interval perceptual disturbances, no auditory or visual destinations Reports some overvalued ideas but denies any paranoia today Reports tolerating his medication well, reports being compliant with medication Mental Status Exam MSE Comments: Sitting in the day room having just finished lunch, calm, cooperative, interactive, appropriately groomed and dressed Psychomotor activity is neither increased nor decreased, no agitation Speech is normal rate and volume, spontaneous, clear articulation, not pressured I feel good, congruent affect, smiles appropriately at times, not labile Alert and oriented to person, place, time Memory and concentration appear to be fair to intact per interview Thought process, linear, no flight of ideas, no looseness of associations Thought content, some overvalued ideas, does not appear to be attending to any internal stimuli, no suicidal or homicidal ideation Insight and judgment appear to be fair Vitals/I&O/Wt Last Vital Signs Temp 98.0 F 02/08/21 06:00 Pulse 82 02/08/21 06:00 Resp 17 02/08/21 06:00 BP 151/86 02/08/21 06:00 Pulse Ox 95 02/08/21 06:00 Data NPU : 01/24/21 14:08 01/24/21 14:08 A&P Assessment and plan (1) Schizophrenia: Status: Resolved Qualifiers: Schizophrenia type: paranoid schizophrenia Qualified Code(s): F20.0 - Paranoid schizophrenia (2) Anxiety and depression: Status: Acute (3) Intermittent explosive disorder in adult: Status: Acute Additional A&P Information Appears to be improving, no interval complaints and no reported behavioral disturbances CONTINUE current medication, continue to monitor Involuntary Hold Information 96 Hour Hold: 96 Hour Involuntary Admission: Yes 96 Hour Hold Ending Date: 01/30/21 96 Hour Hold Ending Time: 16:50 Attestations NPU Medical Necessity Statement*: Continues require psychiatric hospitalization for medication stabilization Coding Level of Care Code Acute Molding Press Operator for Royce Fwxavi Diagnoses Schizophrenia F20.0 Schizophrenia type: paranoid schizophrenia Anxiety and depression F41.9; F32.9 Intermittent explosive disorder in adult F63.81
[2021-02-08 13:50] VITALS: BP 110/72; PULSE 94; RESP 16; TEMP 36.8; O2SAT 96
[2021-02-08 22:00] VITALS: BP 122/78; PULSE 82; RESP 18; TEMP 37.2; O2SAT 96
[2021-02-09 05:24] VITALS: BMI 29.1
[2021-02-09 06:00] VITALS: BP 112/68; PULSE 69; RESP 16; TEMP 36.5; O2SAT 96
[2021-02-09] MEDS: fluoxetine 20 mg Capsule PO (08:11)
[2021-02-09] MEDS: ARIPiprazole 10 mg Tablet 20 MG PO (08:11)
--- NOTE | 2021-02-09 12:50 | PM.NPN ---
Subjective NPU Subjective: Interval history: Continues to report improvement States that he is compliant with his medication, denies any medication side effects Future oriented, continues to look forward to going back home Denies any interval mood symptoms, denies any irritability or anger Per staff report, no interval behavioral disturbances Mental Status Exam MSE Comments: Standing in his room and eventually sits on his bed for interview, polite, calm, cooperative, interactive, appropriately groomed and dressed Psychomotor activity is neither increased nor decreased, no agitation Speech is normal rate and volume, spontaneous, clear articulation, not pressured Pretty good, congruent affect, full range, not labile Alert and oriented to person, place, time Memory and concentration appear to be fair to intact per interview Thought process, linear, no flight of ideas, no looseness of associations Thought content, some overvalued ideas, no hallucinations, no suicidal or homicidal ideation Insight and judgment appear to be fair Vitals/I&O/Wt Last Vital Signs Temp 97.7 F 02/09/21 06:00 Pulse 69 02/09/21 06:00 Resp 16 02/09/21 06:00 BP 112/68 02/09/21 06:00 Pulse Ox 96 02/09/21 06:00 Weight last 48 hrs Weight 97.522 kg Data NPU : 01/24/21 14:08 01/24/21 14:08 A&P Assessment and plan (1) Schizophrenia: Status: Resolved Qualifiers: Schizophrenia type: paranoid schizophrenia Qualified Code(s): F20.0 - Paranoid schizophrenia (2) Anxiety and depression: Status: Acute Additional A&P Information Continued improvement CONTINUE current medication, continue to monitor Involuntary Hold Information 96 Hour Hold: 96 Hour Involuntary Admission: Yes 96 Hour Hold Ending Date: 01/30/21 96 Hour Hold Ending Time: 16:50 Attestations NPU Medical Necessity Statement*: Continues to require psychiatric hospitalization for medication stabilization Coding Level of Care Code Acute President [employer] for Royce Montanez Diagnoses Schizophrenia F20.0 Schizophrenia type: paranoid schizophrenia Anxiety and depression F41.9; F32.9
[2021-02-09 14:00] VITALS: BP 126/76; PULSE 79; RESP 18; TEMP 36.9; O2SAT 95
[2021-02-09 20:24] VITALS: BP 119/78; PULSE 77; RESP 20; TEMP 37; O2SAT 95
[2021-02-10 06:00] VITALS: BP 111/72; PULSE 81; RESP 18; TEMP 37.1; O2SAT 95
[2021-02-10] MEDS: ARIPiprazole 10 mg Tablet 20 MG PO (07:55)
[2021-02-10] MEDS: fluoxetine 20 mg Capsule PO (07:55)
--- NOTE | 2021-02-10 07:56 | PC.NURSE ---
AM note Patient is pleasant this morning, explained that he is feeling better. Patient has been helpful around the unit helping staff with breakfast cart, along with holding the door open so staff can get the cart through to the nurses station.
--- NOTE | 2021-02-10 11:21 | PM.NPN ---
Subjective NPU Subjective: Interval history: Patient is initially upset, irritable because of post discharge living arrangements but quickly reconstitutes and is agreeable to interview. Denies any interval complaints Continues to report being compliant with his medication, denies any medication side effects Denies any interval mood symptoms, denies any irritability or anger Per staff report, no interval behavioral disturbances Mental Status Exam MSE Comments: Sitting on his bed in his room, initially irritable but cooperative, interactive, appropriately groomed and dressed Psychomotor activity is neither increased nor decreased, no agitation Speech is normal rate and volume, spontaneous, clear articulation, not pressured I am upset, congruent affect, full range, not labile Alert and oriented to person, place, time Memory and concentration appear to be fair to intact per interview Thought process, linear, no flight of ideas, no looseness of associations Thought content, some overvalued ideas, no hallucinations, no suicidal or homicidal ideation Insight and judgment appear to be fair Vitals/I&O/Wt Last Vital Signs Temp 98.8 F 02/10/21 06:00 Pulse 81 02/10/21 06:00 Resp 18 02/10/21 06:00 BP 111/72 02/10/21 06:00 Pulse Ox 95 02/10/21 06:00 Weight last 48 hrs Weight 97.522 kg Data NPU : 01/24/21 14:08 01/24/21 14:08 A&P Assessment and plan (1) Schizophrenia: Status: Resolved Qualifiers: Schizophrenia type: paranoid schizophrenia Qualified Code(s): F20.0 - Paranoid schizophrenia (2) Anxiety and depression: Status: Acute Additional A&P Information Initially upset about the possibility of going to [place] post discharge but quickly reconstitutes, no interval changes, continued improvement CONTINUE current medication, continue to monitor Involuntary Hold Information 96 Hour Hold: 96 Hour Involuntary Admission: Yes 96 Hour Hold Ending Date: 01/30/21 96 Hour Hold Ending Time: 16:50 Attestations NPU Medical Necessity Statement*: Continues to require psychiatric hospitalization for medication stabilization, coordination for safe discharge Coding Level of Care Code Acute Anthropology Instructor for Royce Fwxavi Diagnoses Schizophrenia F20.0 Schizophrenia type: paranoid schizophrenia Anxiety and depression F41.9; F32.9
[2021-02-10 14:00] VITALS: BP 146/83; PULSE 86; RESP 18; TEMP 36.8; O2SAT 96
[2021-02-10 21:26] VITALS: BP 116/74; PULSE 88; RESP 18; TEMP 36.6; O2SAT 96
[2021-02-11 03:35] VITALS: BP 159/94; PULSE 92; RESP 18; TEMP 37.1; O2SAT 97
--- NOTE | 2021-02-11 03:43 | PC.NURSE ---
Pt taken to unit entry way to change and get ready for his ride to [place]. Personal articles gone over with pt with 2 additional staff present. at 0350, pt was escorted to waiting ub ride.
--- NOTE | 2021-02-11 03:59 | PC.NURSE ---
discharge vital signs: t:98.7, p:92, r:18, bp 159/94: spo2 97% on rm air
--- NOTE | 2021-02-11 08:33 | PM.NDC ---
Diagnoses at Discharge Discharge Diagnosis (1) Schizophrenia: Status: Resolved Qualifiers: Schizophrenia type: paranoid schizophrenia Qualified Code(s): F20.0 - Paranoid schizophrenia (2) Anxiety and depression: Status: Acute Reason for Visit Reason for Visit: PSYCH EVAL/ 96 HR HOLD Hospital Course Hospital Course 55-year-old man with history of paranoid schizophrenia presented to the hospital after making threats with a knife because he thought people were playing tricks on him and were trying to take his money. Patient continued to be irritable and somewhat belligerent after admission but was started on Abilify. Attempts were made to transition patient to long-acting injectable Abilify but the patient continued to refuse but finally accepted taking oral medication and was started on Abilify which was continued as well as fluoxetine. Patient tolerated medication well with no reports of any medication side effects. Patient participated some in unit milieu and would on occasion go to the day room but mostly stayed in his room. Patient became somewhat irritable when he found out that he would be discharging to a location that was not his home and became somewhat paranoid that people would try to take his checks or use his bank statements to try and take his money but was easily redirected verbally. Patient was not suicidal at the time of discharge and did not appear to pose an imminent threat of harm to self or others. Low to moderate risk of harm to self and others given no current suicidal ideation or homicidal ideation at the time of discharge although he continues to have some paranoia about his money; his risk will continue to be elevated if he becomes noncompliant with his medication or medication management follow-up leading to unexpected, impulsive behavior. Risk medication included psychiatric hospitalization for medication stabilization, recommendation to continue compliance with his medication medication management follow-up as well as coordination for safe discharge to a long-term with mental health resources and appointments. Patient was able to communicate his understanding of the need to be compliant with his medication and medication management follow-up in order to further mitigate his risk of harm to self and others. Involuntary Hold Information 96 Hour Hold: 96 Hour Involuntary Admission: Yes 96 Hour Hold Ending Date: 01/30/21 96 Hour Hold Ending Time: 16:50 Mental Status Exam MSE Comments: Change from previous mental status evaluation. Sitting on his bed in his room, initially irritable but cooperative, interactive, appropriately groomed and dressed Psychomotor activity is neither increased nor decreased, no agitation Speech is normal rate and volume, spontaneous, clear articulation, not pressured I am upset, congruent affect, full range, not labile Alert and oriented to person, place, time Memory and concentration appear to be fair to intact per interview Thought process, linear, no flight of ideas, no looseness of associations Thought content, some overvalued ideas, no hallucinations, no suicidal or homicidal ideation Insight and judgment appear to be fair Discharge Data Vitals: Last Vital Signs Temp 98.7 F 02/11/21 03:35 Pulse 92 02/11/21 03:35 Resp 18 02/11/21 03:35 BP 159/94 02/11/21 03:35 Pulse Ox 97 02/11/21 03:35 Discharge Plan Discharge Patient Disposition: Home Condition: Stable Prescriptions: New fluoxetine 20 mg Capsule 20 mg PO DAILY Qty: 30 RF: 0 aripiprazole 10 mg Tablet 20 mg PO DAILY Qty: 30 RF: 0 Continued benztropine 1 mg tablet 1 mg PO BID 30 Days Qty: 60 RF: 3 fluoxetine 20 mg capsule 20 mg PO DAILY 30 Days Qty: 30 RF: 3 trazodone 100 mg tablet 100 mg PO BEDTIME 30 Days Qty: 30 RF: 3 Aristada 882 mg/3.2 mL suspension,extended rel syring 882 mg IM .monthly 30 Days Qty: 3.2 RF: 3 cetirizine 10 mg Tablet 10 mg PO DAILY 30 Days Qty: 30 RF: 1 ergocalciferol (vitamin D2) [Vitamin D2] 1,250 mcg (50,000 unit) Capsule 50,000 unit PO We@0800 30 Days Qty: 4 RF: 1 famotidine [Acid Pot Tender (famotidine)] 20 mg tablet 20 mg PO DAILY PRN (Reason: Acid Reflux) 30 Days Qty: 30 RF: 1 simvastatin 20 mg tablet 20 mg PO DAILY 30 Days Qty: 30 RF: 1 metformin 500 mg tablet 500 mg PO DAILY RF: 0 ferrous sulfate 325 mg (65 mg iron) Tablet,Delayed Release (Dr/Ec) 325 mg PO EVERY OTHER DAY Qty: 15 RF: 0 potassium chloride 10 mEq tablet extended release 10 meq PO DAILY Qty: 5 RF: 0 bisacodyl 5 mg tablet 5 mg PO BID PRN (Reason: constipation) Qty: 20 RF: 0 Discontinued Seroquel 200 mg tablet 200 mg PO TID 30 Days Qty: 90 RF: 3 Referrals: [facility] [Outside] - 02/28/21 8:15 am (Dr Alexander) Discharge Diet: Usual diet Discharge Activity: Resume usual activity Patient Instructions: Opioid Safety Discharge Attestations NPU Time Spent in Discharge Care*: less than 30 min Status at Discharge: Cognitive status at discharge: cognitively intact, Behavioral status at discharge: cooperative, Functional status at discharge: independent ambulation Overall status at discharge: patient is back to baseline Coding Level of Care Code Acute Chg [facility] note Diagnoses Schizophrenia F20.0 Schizophrenia type: paranoid schizophrenia Anxiety and depression F41.9; F32.9
== END 2021-02-11 03:35 | disposition home or self-care (01) | DRG 885 ==
LOC: ER 14:39 → NP 17:09
PROVIDERS: Admitting Provider Psychiatry & Neurology Psychiatry; Emergency Provider Family Medicine; PCP Nurse Practitioner; Visit Provider Psychiatry & Neurology Psychiatry
DX: F20.0 Paranoid schizophrenia (principal); F32.9 Major depressive disorder, single episode, unspecified; F41.1 Generalized anxiety disorder; F63.81 Intermittent explosive disorder; F81.9 Developmental disorder of scholastic skills, unspecified; I10 Essential (primary) hypertension; K21.9 Gastro-esophageal reflux disease without esophagitis; E78.5 Hyperlipidemia, unspecified; G20 Parkinson's disease; G24.01 Drug induced subacute dyskinesia; F19.21 Other psychoactive substance dependence, in remission; E11.9 Type 2 diabetes mellitus without complications; Z87.891 Personal history of nicotine dependence; Z91.5 Personal history of self-harm; Z91.14 Patient's other noncompliance with medication regimen; Z87.2 Personal history of diseases of the skin and subcutaneous tissue; Z79.84 Long term (current) use of oral hypoglycemic drugs; Z81.8 Family history of other mental and behavioral disorders
CPT/HCPCS: 36416; 80053; 80306; 80307; 81003; 82962; 85025; 96372; 99285; J2060; J3486